=== PATIENT | female | born 1995 | race Hispanic/Latino ===

== ENCOUNTER 2019-01-09 12:32 | Emergency (ER) | payer OTHER ==
--- OUTSIDE RECORDS SUMMARY | 2019-01-09 12:34 | XMS REPORT ---
:1995 Author Organization [employer] Care Team Providers Name Role Phone Noel, Na Provider Role Unavailable Allergies No Known Allergies Problems Problem Type Condition Code Onset Dates Condition Status Assessment Primary osteoarthritis of right hip M16.11 Active Problem Paraplegia G82.20 Active Problem Anemia D64.9 Active Problem Arnold-Chiari malformation Q07.00 Active Problem Benign essential HTN I10 Active Problem Elevated blood-pressure reading R03.0 Active without diagnosis of hypertension Problem Primary insomnia F51.01 Active Problem Intractable migraine with aura G43.119 Active without status migrainosus Problem Altered bowel elimination due to K94.19 Active intestinal ostomy Problem Primary osteoarthritis of right hip M16.11 Active Problem Vitamin B12 deficiency E53.8 Active Problem Wheelchair dependent Z99.3 Active Problem Acquired scoliosis M41.9 Active Problem Tachycardia R00.0 Active Problem Frequent falls R29.6 Active Problem Mechanical complication of K94.03 Active colostomy Problem Depression with anxiety F41.8 Active Problem Colostomy status Z93.3 Active Problem Incontinence R32 Active Problem Thoracic spina bifida with Q05.1 Active hydrocephalus Problem Pressure ulcer of sacral region, L89.150 Active unstageable Problem Fecal incontinence R15.9 Active Problem Kidney and urinary tract disorders N28.9 Active Problem Hydronephrosis N13.30 Active Problem Obstructive sleep apnea G47.33 Active Medications Medication Code Code Instructions Start End Status Dosage System Date Date [facility] [id number] 2 % Transdermal June 26 2 applications Twice a day 2019 to affected area Results No Known Results Summary Purpose [facility] Submission
--- OUTSIDE RECORDS SUMMARY | 2019-01-09 12:34 | XMS REPORT ---
:1995 [facility] [address] [place] [address] Dr. Vaca [address] [place] [id number] Care Team Providers Name Role Phone Unavailable Unavailable Unavailable Problems This patient has no known problems. Allergies, Adverse Reactions, Alerts This patient has no known allergies or adverse reactions. Medications This patient has no known medications.
[2019-01-09 14:02] LABS: Absolute Lymphocytes (CBC) 0.7 K/uL (0.7-4.9); Basophils % 0.8 % (0-1.3); Hematocrit 33.1 % (36.0-45.0); Lymphocytes % 7.3 % (15.3-44.8); MPV 8.1 fL (7.6-11.3); RBC Red Blood Cell Count 4.76 M/uL (3.86-4.86)
[2019-01-09 14:16] LABS: BUN Blood Urea Nitrogen 9 mg/dL (7-18); Bicarbonate 25 mmol/L (21-32); Glucose Level 120 mg/dL (74-106); Potassium 3.8 mmol/L (3.5-5.1); Sodium Level 140 mmol/L (136-145)
--- NOTE | 2019-01-09 14:17 | RAD REPORT ---
EXAM DESCRIPTION: RAD - Tib Fib Right - 01/09/2019 1:44 pm CLINICAL HISTORY: Leg pain, soft tissue swelling COMPARISON: November 2012 FINDINGS: There is a spiral fracture involving the distal shaft of the right tibia. No significant d istraction or angulation deformity. No fibula fracture identified. Bones are osteopenic. Epiphyses and growth plates show no acute findin gs. No foreign body or other soft tissue abnormality. IMPRESSION: Distal right tibia spiral fracture without significant distraction or angulation.
--- NOTE | 2019-01-09 14:18 | RAD REPORT ---
EXAM DESCRIPTION: RAD - Chest Single View - 01/09/2019 1:44 pm CLINICAL HISTORY: Fever COMPARISON: July 2016 TECHNIQUE: AP portable chest image was obtained 1332 hours . FINDINGS: Lung volumes are low. No peripheral mass, consolidation or pulmonary edema. Thickening perry ng the right-side of the chest and medial right apex unchanged from comparison. Shunt tubing overlies the right side of the chest. Heart and vasculature are normal. No measurable pleural effusion and no pneumothorax. No acute bony abnormality seen. No acute aortic findings suspected. IMPRESSION: No acute cardiopulmonary process. No significant change from comparison.
[2019-01-09 14:20] LABS: Blood Morphology Comment NOTED (NOT SEEN); Platelet Estimate INCR; Urine White Blood Cell Casts OK
--- NOTE | 2019-01-09 15:04 | RAD REPORT ---
EXAM DESCRIPTION: US - Extremity Venous Uni Ltd - 01/09/2019 2:49 pm CLINICAL HISTORY: Right leg pain and swelling COMPARISON: None. TECHNIQUE: Real-time sonographic evaluation of the right lower extremity deep venous systems was per formed. FINDINGS: Normal compressibility, flow augmentation, phasic flow and spontaneous flow are identified in the right lower extremity common femoral, superficial femoral, popliteal and posterior tibial vei ns. No intraluminal filling defects seen. IMPRESSION: No DVT in the right lower extremity.
--- NOTE | 2019-01-09 16:32 | ER ---
Nurse's Notes [facility] Name: Myron Eddy Age: 23 yrs Sex: Female : 1995 Arrival Date: 01/09/2019 Time: 12:37 Bed 7 Private MD: Diagnosis: Displaced fracture of right tibial spine Presentation: 01/09 12:44 Presenting complaint: EMS states: Redness, warmth and swelling to R lower leg, non ph ambulatory w/ hx of spina bifida, family reports that when transferring pt to bed yesterday they felt a pop in leg and noticed redness and swelling today. Transition of care: patient was not received from another setting of care. Onset of symptoms was January 09, 2019. Risk Assessment: Do you want to hurt yourself or someone else? Patient reports no desire to harm self or others. Initial Sepsis Screen: Does the patient meet any 2 criteria? No. Patient's initial sepsis screen is negative. Does the patient have a suspected source of infection? Yes: Bone or joint infection. Care prior to arrival: None. 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 - Social history:: Smoking status: Patient/guardian denies using tobacco. - Ebola Screening: : No symptoms or risks identified at this time. Screenin:59 Abuse screen: Denies threats or abuse. Denies injuries from another. Nutritional ph screening: No deficits noted. Tuberculosis screening: No symptoms or risk factors identified. Fall Risk None identified. Assessment: 13:00 General: Appears in no apparent distress. comfortable, well groomed, Behavior is calm, ph cooperative, appropriate for age, Denies fever, chills. Pain: Denies pain. Neuro: Level of Consciousness is awake, alert, obeys commands, Oriented to person, place, time, situation. Cardiovascular: Capillary refill < 3 seconds in bilateral fingers Patient's skin is warm and dry. Pulses are palpable in right dorsalis pedis artery and left dorsalis pedis artery. Respiratory: Airway is patent Respiratory effort is even, unlabored, Respiratory pattern is regular, symmetrical, Denies shortness of breath. GI: No signs and/or symptoms were reported involving the gastrointestinal system. Derm: Skin is intact, Skin is pale, area of redness noted to emery area, also slightly swollen and warm to touch. Musculoskeletal: to bilateral lower extremities r/t hx of spina bifida. 14:03 Reassessment: Patient appears in no apparent distress at this time. Patient and/or ph family updated on plan of care and expected duration. Pain level reassessed. Patient is alert, oriented x 3, equal unlabored respirations, skin warm/dry/pink. Pt taken to US via stretcher. 15:00 Reassessment: Patient appears in no apparent distress at this time. Patient and/or ph family updated on plan of care and expected duration. Pain level reassessed. Patient is alert, oriented x 3, equal unlabored respirations, skin warm/dry/pink. 16:00 Reassessment: Patient appears in no apparent distress at this time. Patient and/or ph family updated on plan of care and expected duration. Pain level reassessed. Patient is alert, oriented x 3, equal unlabored respirations, skin warm/dry/pink. Vital Signs: 12:48 BP 145 / 106; Pulse 108; Resp 18; Temp 99.1(O); Pulse Ox 100% on R/A; Weight 44.45 kg; ph 14:00 BP 137 / 99; Pulse 101; Resp 18; Pulse Ox 100% on R/A; ph 15:30 BP 146 / 101; Pulse 98; Resp 18; Pulse Ox 99% on R/A; ph 16:30 BP 132 / 97; Pulse 92; Resp 16; Temp 98.7; Pulse Ox 100% on R/A; ph ED Course: 12:37 Patient arrived in ED. em1 12:42 Sebastian Wills PA is PHCP. jr8 12:42 Todd Gramajo MD is Attending Physician. jr8 12:44 Betsy Daniels, RN is Primary Nurse. ph 12:48 Triage completed. ph 13:19 Missed attempt(s): 22 gauge in left antecubital area. Bleeding controlled, band aid ph applied, catheter tip intact. Missed attempt(s): 22 gauge in right antecubital area. Bleeding controlled, band aid applied, catheter tip intact. 13:20 Patient has correct armband on for positive identification. Placed in gown. Bed in low ph position. Call light in reach. Side rails up X2. Pulse ox on. NIBP on. Door closed. Noise minimized. Warm blanket given. Head of bed elevated. 13:20 Arm band placed on Patient placed in an exam room. ph 13:50 XRAY Tib Fib RIGHT In Process Unspecified. EDMS 13:50 XRAY Chest (1 view) In Process Unspecified. EDMS 13:50 Accessed peripheral vein via ultrasound, utilizing dynamic ultrasound technique using ph 18G Sureflo IV catheter Clean \T\ dry. Dressing intact. Good blood return. Flushes easily. inserted by Jose Dimas RN. 14:49 US Extremity Venous Unilateral Ltd In Process Unspecified. EDMS 16:42 Trav wrap to right knee and right ankle and right leg Orthoglass splint: Posterior long jp3 leg splint applied on right leg. 17:10 No provider procedures requiring assistance completed. IV discontinued, intact, ph bleeding controlled, No redness/swelling at site. Pressure dressing applied. Administered Medications: No medications were administered Outcome: 16:31 Discharge ordered by MD. dias 17:10 Patient left the ED. ph 17:10 Discharged to home via wheelchair, with family. ph 17:10 Condition: good 17:10 Discharge instructions given to patient, family, Instructed on discharge instructions, follow up and referral plans. Demonstrated understanding of instructions, follow-up care. Signatures: Dispatcher [employer] EDMS Mark Gonsalves em1 Sebastian Wills PA PA jrBetsy Sharpe, NICOLAS RN ph Olu Poole jp3 Corrections: (The following items were deleted from the chart) 12:49 12:48 BP 145 / 46; Pulse 108bpm; Resp 18bpm; Pulse Ox 100% RA; Temp 99.1F Oral; 44.45 ph kg; ph 19:13 16:00 Reassessment: Patient appears in no apparent distress at this time. ph ph
--- NOTE | 2019-01-09 16:32 | EDPHYS ---
Physician Documentation [facility] Name: Myron Eddy Age: 23 yrs Sex: Female : 1995 Arrival Date: 01/09/2019 Time: 12:37 Bed 7 Private MD: ED Physician Todd Gramajo HPI: 01/09 13:59 This 23 yrs old Female presents to ER via EMS with complaints of Possible jr8 fracture right lower extremity. 13:59 The patient presents with swelling, erythema. The complaints affect the right emery. jr8 Context: The problem was sustained at home. Onset: The symptoms/episode began/occurred acutely, yesterday. Modifying factors: The symptoms are alleviated by nothing. the symptoms are aggravated by nothing. Associated signs and symptoms: The patient has no apparent associated signs or symptoms. Severity of symptoms: At their worst the symptoms were moderate, in the emergency department the symptoms are unchanged. It is unknown whether or not the patient has had similar symptoms in the past. The patient has not recently seen a physician. Patient disabled and paralyzed in legs. While being moved to bed mother felt pop in right lower leg. Today leg is swollen and red. EMS called at that time for further evaluation . 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 - Social history:: Smoking status: Patient/guardian denies using tobacco. - Ebola Screening: : No symptoms or risks identified at this time. ROS: 13:59 Eyes: Negative for injury, pain, redness, and discharge, ENT: Negative for injury, jr8 pain, and discharge, Neck: Negative for injury, pain, and swelling, Cardiovascular: Negative for chest pain, palpitations, and edema, Respiratory: Negative for shortness of breath, cough, wheezing, and pleuritic chest pain, Abdomen/GI: Negative for abdominal pain, nausea, vomiting, diarrhea, and constipation, Back: Negative for injury and pain, Skin: Negative for injury, rash, and discoloration, Neuro: Negative for headache, weakness, numbness, tingling, and seizure. 13:59 MS/extremity: Positive for erythema, swelling, of the right leg. Exam: 13:59 Eyes: Pupils equal round and reactive to light, extra-ocular motions intact. Lids and jr8 lashes normal. Conjunctiva and sclera are non-icteric and not injected. Cornea within normal limits. Periorbital areas with no swelling, redness, or edema. ENT: Nares patent. No nasal discharge, no septal abnormalities noted. Tympanic membranes are normal and external auditory canals are clear. Oropharynx with no redness, swelling, or masses, exudates, or evidence of obstruction, uvula midline. Mucous membranes moist. Neck: Trachea midline, no thyromegaly or masses palpated, and no cervical lymphadenopathy. Supple, full range of motion without nuchal rigidity, or vertebral point tenderness. No Meningismus. Chest/axilla: Normal chest wall appearance and motion. Nontender with no deformity. No lesions are appreciated. Cardiovascular: Regular rate and rhythm with a normal S1 and S2. No gallops, murmurs, or rubs. Normal PMI, no JVD. No pulse deficits. Respiratory: Lungs have equal breath sounds bilaterally, clear to auscultation and percussion. No rales, rhonchi or wheezes noted. No increased work of breathing, no retractions or nasal flaring. Abdomen/GI: Soft, non-tender, with normal bowel sounds. No distension or tympany. No guarding or rebound. No evidence of tenderness throughout. Back: No spinal tenderness. No costovertebral tenderness. Full range of motion. Skin: Warm, dry with normal turgor. Normal color with no rashes, no lesions, and no evidence of cellulitis. 13:59 Musculoskeletal/extremity: Extremities: grossly normal except: noted in the right leg: Patient has crepitus of distal tibia with swelling, erythema, and with warm to touch. No pulse deficit , Pulses: noted to be 2+ in the right radial artery, right dorsalis pedis artery, left radial artery and left dorsalis pedis artery, Sensation intact. 13:59 Neuro: Orientation: to person, place \T\ time. Mentation: is normal, Memory: is normal, Cranial nerves: CN I not tested, CN II- XII are normal as tested, Motor: strength is 5/5 in the right arm and left arm, Paralyzed lower extremities, seizure activity, is not displayed by the patient, Abnormal movements: there are no abnormal movements. Vital Signs: 12:48 BP 145 / 106; Pulse 108; Resp 18; Temp 99.1(O); Pulse Ox 100% on R/A; Weight 44.45 kg; ph 14:00 BP 137 / 99; Pulse 101; Resp 18; Pulse Ox 100% on R/A; ph 15:30 BP 146 / 101; Pulse 98; Resp 18; Pulse Ox 99% on R/A; ph 16:30 BP 132 / 97; Pulse 92; Resp 16; Temp 98.7; Pulse Ox 100% on R/A; ph Procedures: 16:28 Splinting: Splint applied to right leg using Orthoglass splint, applied by tech. nurse. jr8 Examined by me, post splint application: neurovascular intact, 2+ distal pulses palpable, brisk capillary refill noted, Patient tolerated well. MDM: 12:42 Patient medically screened. jr8 16:28 Data reviewed: vital signs, nurses notes, lab test result(s), radiologic studies, plain jr8 films, and as a result, I will discharge patient. Data interpreted: Pulse oximetry: on room air is 100 %. Interpretation: normal. Counseling: I had a detailed discussion with the patient and/or guardian regarding: the historical points, exam findings, and any diagnostic results supporting the discharge/admit diagnosis, lab results, radiology results, the need for outpatient follow up, a orthopedic surgeon, to return to the emergency department if symptoms worsen or persist or if there are any questions or concerns that arise at home. 01/09 12:43 Order name: CBC with Diff; Complete Time: 14:49 8 01/09 12:43 Order name: Basic Metabolic Panel; Complete Time: 14:49 8 01/09 12:43 Order name: Blood Culture Adult (2) [facility] 01/09 12:43 Order name: Procalcitonin; Complete Time: 15:06 8 01/09 12:43 Order name: Lactate; Complete Time: 14:49 8 01/09 12:43 Order name: IV; Complete Time: 13:59 jr8 01/09 12:43 Order name: XRAY Tib Fib RIGHT; Complete Time: 14:49 jr8 01/09 12:43 Order name: Straight Cath - Urine; Complete Time: 17:08 jr8 01/09 12:43 Order name: Urine Dipstick-Ancillary (obtain specimen); Complete Time: 17:08 jr8 01/09 12:43 Order name: XRAY Chest (1 view); Complete Time: 14:49 jr8 01/09 13:54 Order name: US Extremity Venous Unilateral Ltd; Complete Time: 15:07 jr8 01/09 14:22 Order name: CBC Smear Scan; Complete Time: 14:49 EDCA 01/09 15:08 Order name: Splint - Posterior Leg; Complete Time: 16:43 jr8 Administered Medications: No medications were administered Disposition: 17:23 Co-signature as Attending Physician, Todd Gramajo MD. rn Disposition: 01/09/19 16:31 Discharged to Home. Impression: Displaced fracture of right tibial spine. - Condition is Stable. - Discharge Instructions: Tibial Fracture, Adult. - Medication Reconciliation Form, Thank You Letter, Antibiotic Education, Prescription Opioid Use form. - Follow up: Private Physician; When: 2 - 3 days; Reason: Recheck today's complaints, Continuance of care, Re-evaluation by your physician. - Problem is new. - Symptoms have improved. Signatures: Dispatcher [employer] EDTodd Chauhan MD MD rn Roszak, Josh, PA PA jr8 Betsy Daniels RN RN ph Corrections: (The following items were deleted from the chart) 17:10 16:31 01/09/2019 16:31 Discharged to Home. Impression: Displaced fracture of right ph tibial spine. Condition is Stable. Forms are Medication Reconciliation Form, Thank You Letter, Antibiotic Education, Prescription Opioid Use. Follow up: Private Physician; When: 2 - 3 days; Reason: Recheck today's complaints, Continuance of care, Re-evaluation by your physician. Problem is new. Symptoms have improved. jr8
[2019-01-09 17:26] VITALS: BP 145/106; TEMP 99.1; O2SAT 100
== END 2019-01-09 17:10 | disposition home or self-care (01) ==
LOC: ER 12:32
PROC: 2W3QX1Z Immobilization of Right Lower Leg using Splint (ICD-10-PCS; principal; 2019-01-09)
DX: S82.111A Displaced fracture of right tibial spine, initial encounter for closed fracture (principal); X58.XXXA Exposure to other specified factors, initial encounter; Y93.89 Activity, other specified; Y92.9 Unspecified place or not applicable; Z88.3 Allergy status to other anti-infective agents; Z91.040 Latex allergy status
CPT/HCPCS: 36415; 71045; 80048; 83605; 84145; 85025; 87040; 93971; 99284

== ENCOUNTER 2024-06-19 10:30 | Emergency (ER) | payer MEDICAID, OTHER ==
--- OUTSIDE RECORDS SUMMARY | 2024-06-19 10:48 | XMS REPORT | Continuity of Care Document ---
Author Name Unknown Address [address] [facility] [address] [place] [address] [facility] Address [address] [facility] [address] [place] [address] Care Team Providers Care Compliance Program Manager Name Role Phone Lexi Borrero MD Primary Care Physician + [phone] Waleska Martinez Attending Clinician Unavailable JULITO CARR Attending Clinician Unavailable LEXI BORRERO Attending Clinician UnavailLEXI Zuleta Attending Clinician UnavailKHADIJAH Desouza Attending Clinician Unavailable Lexi Borrero MD Attending Clinician [phone] Khadijah Mendenhall DO Attending Clinician [phone], [facility] Attending Clinician Unavailable Doctor Unassigned, [place] Attending Clinician U DELGADO Light Attending Clinician Unavailable DELGADO VELASQUEZ Attending Clinician Unavailable Delgado Velasquez MD Attending Clinician LISA JULIAN Attending Clinician Unavailable LISA JULIAN Attending Clinician Unavailable Lisa Julian MD Attending Clinician [phone] Gorge Aviles MD Attending Clinician [phone] Bruno AMAYA, Julito Attending Clinician [phone] NATALY BENTON Attending Clinician Unavailab NATALY Whitaker Attending Clinician Unavailab farzana Benton DNA SEQUENCING ASSOCIATE, Nataly Attending Clinician [phone] Mis Hale Attending Clinician Unav Gorge Duncan MD Attending Clinician [phone] Bruno AMAYA, Julito Attending Clinician [phone] GORGE AVILES Attending Clinician Unavail able GORGE AVILES Attending Clinician Unavail able Doctor Unassigned, [place] Attending Clinician U ZEESHAN Lane Attending Clinician UnavailMIS Carballo Attending Clinician Unavaila RIGO Gamez Attending Clinician Unavailab farzana Nurse, [facility] Surgery Gu Attending Clinician Rigo Blankenship MD Attending Clinician [phone] Melvin Yu MD Attending Clinician [phone] Naeem Maurice MD Attending Clinician [phone] Chavo Manning Attending Clinician [phone] [facility] Attending Clinician Unavailab Monica Jung MA Attending Clinician UnavailKAIT Gonzales Attending Clinician Unavailable Angel Langford Attending Clinician [phone] ADAM MULLER Attending Clinician ANGEL Diallo Attending Clinician Unavailable Virginia Hercules OT Attending Clinician Un available Ashia Elizalde MD Attending Clinician [phone] ASHIA ELIZALDE Attending Clinician UnavailJUAN RAMON Hinson Attending Clinician UnavailTIGRE Reyes Attending Clinician Unavailable [facility] Attending Clinician Unavailable Juan Ramon Cam MD Attending Clinician [phone] Therapist, [employer] Attending Clinician Unavail able DELGADO VELASQUEZ Admitting Clinician Unavailable Delgado Velasquez MD Admitting Clinician [phone] LISA JULIAN Admitting Clinician Unavailable GORGE AVILES Admitting Clinician Unavail able RIGO RODRIGUEZ Admitting Clinician Unavailab Rigo Helms MD Admitting Clinician [phone] MELVIN YU Admitting Clinician Unavailable Payers Payer Name Policy Type Policy Number Effective Date Expirati on Date Source [facility] [id number] 2022 00:00:00 [facility] [id number] 2019 00:00:00 [facility] [place] [id number] 2019 00:00:[address] [facility] (Medicaid) [id number] 2019 00:00:00 [facility] [id number] 2019 [facility] [id number] 2019 00:00:00 [facility] Problems Condition Name Condition Details Condition Category Status Onset Date Resolution Date Last Treatment Date Treating Clinician Comments Source Chronic deep vein thrombosis (DVT) of other vein of lower extremity, unspecifie d laterality Chronic deep vein thrombosis (DVT) of other vein of lower extremity, unspecifie d laterality Disease Active 05-21 00:00: 00 [facility] Vertigo Vertigo Disease Active 05-21 00:00: 00 [facility] Chronic pain of both hips Chronic pain of both hips Disease Active 05-21 00:00: 00 [facility] Chronic left shoulder pain Chronic left shoulder pain Disease Active 05-21 00:00: 00 [facility] Congenital single kidney Congenital single kidney Disease Active 05-21 00:00: 00 [facility] Colostomy present Colostomy present Disease Active 05-21 00:00: 00 [facility] Insomnia Active 2024-1 1-26 00:00: 00 [facility] Other problems related to medical facilities and other health care Active 0 9-20 00:00: 00 [facility] Acute cough Active 8-17 00:00: 00 [facility] Overweight (BMI 25.0-29.9) + BMI 26.0-26.9, adult Active 4-26 00:00: 00 [facility] 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 Disease Active 4-17 00:00: 00 [facility] Lethargy Active 2-14 00:00: 00 [facility] H/O right nephrectom y and neurogenic bladder Active 2-12 00:00: 00 [facility] Colostomy status Active 2-12 00:00: 00 [facility] Bladder incontinen ce Active 2-12 00:00: 00 [facility] Major depressive disorder, recurrent, mild; Anxiety Active 2-12 00:00: 00 [facility] H/O right nephrectom y Active 0 2-12 00:00: 00 [facility] Hypertensi on Active 2-08 00:00: 00 [facility] Health counseling Active 2-08 00:00: 00 [facility] Migraine Active 2-08 00:00: 00 [facility] Muscle spasm Active 2-08 00:00: 00 [facility] ANSHUL (iron deficiency anemia) Active 0 2-08 00:00: 00 [facility] Paraplegia , unspecifie d Active 0 2-08 00:00: 00 [facility] Keloid scar Keloid scar Disease Active 9-25 00:00: 00 [facility] H/O right nephrectom y H/O right nephrectom y Disease Active 0 5-24 00:00: 00 [facility] Urinary incontinen ce, unspecifie d type Urinary incontinen ce, unspecifie d type Disease Active 06-28 00:00: 00 [facility] Pain in joint, multiple sites Pain in joint, multiple sites Disease Active 06-28 00:00: 00 [facility] Muscle spasm Muscle spasm Disease Active 06-28 00:00: 00 [facility] Depression , unspecifie d depression type Depression , unspecifie d depression type Disease Active 06-28 00:00: 00 [facility] Other insomnia Other insomnia Disease Active 06-28 00:00: 00 [facility] Nasal congestion Nasal congestion Disease Active 05-25 00:00: 00 [facility] Encounter to establish care Encounter to establish care Disease Active 05-25 00:00: 00 [facility] Dependence on wheelchair Dependence on wheelchair Disease Active 05-25 00:00: 00 [facility] Encounter to establish care Encounter to establish care Disease Active 05-25 00:00: 00 [facility] Other and unspecifie d diseases of upper respirator y tract Other and unspecifie d diseases of upper respirator y tract Disease Active 05-02 00:00: 00 [facility] Fever and other physiologi c disturbanc es of temperatur e regulation Fever and other physiologi c disturbanc es of temperatur e regulation Disease Active 05-02 00:00: 00 Overview: Formattin g of this note might be different from the original. 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 [facility] Scoliosis Scoliosis Disease Active [facility] [id number] Full incontinen ce of feces Problem Common [facility] Spina bifida without hydrocepha ly [facility] new malformati on Problem [facility] [id number] Spina bifida of thoracolum bar region with hydrocepha ly Problem Common [facility] Acquired scoliosis Acquired scoliosis Problem Common [facility] [id number] Frequent falls Problem Common [facility] Pressure ulcer of sacral region Pressure ulcer of sacral region, unstageabl e Problem Common [facility] Vitamin B12 deficiency Vitamin B12 deficiency Problem Common [facility] Disorder of kidney and/or ureter Kidney and urinary tract disorders Problem Common [facility] Obstructiv e sleep apnea Obstructiv e sleep apnea Problem Common [facility] Anemia Anemia Problem Common [facility] [id number] Primary insomnia Problem Common [facility] Essential hypertensi on Benign essential HTN Problem Common [facility] [id number] Mechanical complicati on of colostomy Problem Common [facility] [id number] Altered bowel eliminatio n due to intestinal ostomy Problem Common [facility] [id number] Rash and nonspecifi c skin eruption Problem Common [facility] Hydronephr osis Hydronephr osis Problem Common [facility] [id number] Decubitus ulcer, ankle, left, unstageabl e Problem Common [facility] Incontinen ce Incontinen ce Problem Common [facility] Localized, primary 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 Problem Common [facility] Refractory migraine with aura Intractabl e migraine with aura without status migrainosu s Problem Common [facility] [id number] Wheelchair dependent Problem Common [facility] [id number] Osteopenia of right lower leg Problem Common [facility] [id number] Other chronic pain Problem Common [facility] [id number] [facility] new malformati on, type II Problem Common [facility] [id number] Spina bifida, unspecifie d hydrocepha ly presence, unspecifie d spinal region Problem Common [facility] Sneezing Sneezing Disease Resolve d 2025-0 4-16 00:00: 00 2024-05-30 00:00:00 2024-05-30 17:07:42 [facility] Post-nasal drip Post-nasal drip Disease Resolve d 4-16 00:00: 00 2024-05-30 00:00:00 2024-05-30 17:07:40 [facility] Sinus tachycardi a Sinus tachycardi a Disease Resolve d 4-12 00:00: 00 2024-05-30 00:00:00 2024-05-30 17:07:30 [facility] Tachycardi a Tachycardi a Disease Resolve d 4-20 00:00: 00 2024-05-30 00:00:00 2024-05-30 17:07:25 [facility] Cough Cough Disease Resolve d 3- 00:00: 00 2024-05-30 00:00:00 2024-05-30 17:07:08 [facility] Unspecifie d viral infection, in conditions classified elsewhere and of unspecifie d site Unspecifie d viral infection, in conditions classified elsewhere and of unspecifie d site Disease Resolve d 3- 00:00: 00 2024-05-30 00:00:00 2024-05-30 17:07:14 [facility] Allergies, Adverse Reactions, Alerts Allergy Name Allergy Type Status Severity Reaction(s) Onset Date Inactive Date Treating Clinician Comments Source BENZONAT ATE DRUG INGREDI Active High Diarrhea 2022-02 0-12 00:00: 00 [facility] BROMPHEN IRAMINE DRUG INGREDI Active High Diarrhea 2022-02 0-12 00:00: 00 [facility] Benzonat ate Drug Allergy Active Itching 2022-02 0-12 00:00: 00 [facility] Bromphen iramine Drug Allergy Active Itching 2022-02 0-12 00:00: 00 [facility] VANCOMYC IN DRUG INGREDI Active Unknown-Cmnt 3-27 00:00: 00 [facility] Vancomyc in Propensi ty to adverse reaction s Active Unknown - See comments 05-01 00:00: 00 [facility] MORPHINE DRUG INGREDI Active Rash 09-01 00:00: 00 [facility] Morphine Propensi ty to adverse reaction s Active Rash 09-01 00:00: 00 Redness noted at injection site and vein per moms report. Has received since. [facility] LATEX DRUG INGREDI Active 05-02 00:00: 00 [facility] Vancomyc in Allergy to substanc e (disorde r) Active [facility] Latex Allergy to substanc e (disorde r) Active [facility] Vancomyc in Allergy to substanc e (disorde r) Active [facility] Latex Allergy to substanc e (disorde r) Active [facility] Vancomyc in Allergy to substanc e (disorde r) Active [facility] Latex Allergy to substanc e (disorde r) Active [facility] Vancomyc in Allergy to substanc e (disorde r) Active [facility] Latex Allergy to substanc e (disorde r) Active [facility] Vancomyc in Allergy to substanc e (disorde r) Active [facility] Latex Allergy to substanc e (disorde r) Active [facility] BuPROPio n HCl Allergy to substanc e (disorde r) Active Unknown [facility] Latex Latex Active Unknown [facility] vancomyc in vancomyc in Active Unknown [facility] Social History Social Habit Start Date Stop Date Quantity Comments Source Gender identity [facility] Sexual orientation U [facility] ASSERTION Not [facility] History of Tobacco Use [facility] Sex Assigned At [facility] History of Social function 2024-05-30 00:00:00 2024-05-30 00:00:00 [facility] Alcoholic beverage intake 2024-05-30 00:00:00 2024-05-30 00:00:00 Current non-drinker of alcohol (finding) [facility] Alcohol intake 2023-04-13 00:00:00 2023-04-13 00:00:00 Current non-drinker of alcohol (finding) [facility] Exposure to SARS-CoV-2 (event) 2022-05-07 00:00:00 2022-05-17 10:16:00 Not sure [facility] Tobacco use and exposure 2021-09-05 00:00:00 2021-09-05 00:00:00 Smokeless tobacco non-user [facility] Smoking Status Start Date Stop Date Source Never smoked tobacco [facility] Medications Ordered Medication Name Filled Medication Name Start Date Stop Date Current Medication? Ordering Clinician Indication Dosage Frequency Signature (SIG) Comments Components Source losartan 25 mg tablet 05-21 00:00: 00 Yes [id number] 25mg Take 1 tablet by mouth in the morning. [facility] Miscellaneo us Medical Supply Kit 05-21 00:00: 00 Yes [id number] Hospital Bed [facility] hydrOXYzine 10 mg/5 mL solution 05-13 00:00: 00 Yes [id number] 10mg Take 5 mL by mouth at bedtime as needed for Itching or Anxiety. [facility] albuterol (VENTOLIN) inhaler 2 Puff 05-01 23:19: 00 05-02 01:31 :00 No 2{puff} 2 Puff, Inhalation , ONCE, 1 dose, On Nora 05/01/24 at 1830, Routine [facility] acetaminoph en (TYLENOL) tablet 1,000 mg 05-01 23:19: 05-02 00:02 :00 No 1000mg 1,000 mg, Oral, ONCE, 1 dose, On Nora 05/01/24 at 1830, SHAY [facility] doxycycline hyclate (Vibramycin ) capsule 100 mg 05-01 23:19: 00 05-02 00:02 :00 No 100mg 100 mg, Oral, ONCE, 1 dose, On Nora 05/01/24 at 1830, SHAY, Reason for Anti-Infec tive: Documented Infection, Documented Infection Site: Respirator y, Duration of Therapy: 7 days [facility] amoxicillin -pot clavulanate 600-42.9 mg/5 mL suspension 05-01 00:00: 00 05-12 04:59 :00 Yes [id number] 870mg Take 7.25 mL by mouth in the morning and 7.25 mL in the evening. Do all this for 10 days. [facility] albuterol sulfate HFA 90 mcg/actuati on aerosol inhaler 04-30 00:00: 00 Yes [id number] 2{puff} Inhale 2 Puffs every 6 (six) hours as needed for Wheezing or Shortness of Breath. [facility] fluticasone propionate 50 mcg/actuati on nasal spray 04-30 00:00: 00 Yes [id number] 1{spray } Use 1 [place] in each nostril in the morning. [facility] doxycycline hyclate 100 mg tablet 04-30 00:00: 00 05-08 04:59 :00 Yes [id number] 100mg Take 1 tablet by mouth in the morning and 1 tablet in the evening. Do all this for 7 days. [facility] loratadine 5 mg/5 mL solution 04-21 00:00: 00 Yes [id number] 10mg Take 10 mL by mouth in the morning. [facility] Venlafaxine 37.5 mg TR24 04-08 00:00: 00 Yes [id number] 1{tbl} Take 1 tablet by mouth in the morning. [facility] dimenhyDRIN ATE (DRAMAMINE) 25 mg Chew 04-08 00:00: 00 Yes [id number] 1{dose} Take 1 Dose by mouth as needed (vertigo). [facility] losartan 25 mg tablet 04-08 00:00: 00 05-21 00:00 :00 No [id number] 25mg Take 1 tablet by mouth in the morning. [facility] metoprolol 10 mg/mL 04-08 00:00: 00 04-08 00:00 :00 Yes [id number] 100mg Take 10 mL by mouth in the morning and 10 mL in the evening. [facility] apixaban (ELIQUIS) 2.5 mg tablet 02-17 00:00: 00 Yes [id number] 2.5mg Take 1 tablet by mouth in the morning and 1 tablet in the evening. Indication s: history of deep vein thrombosis [facility] losartan 25 mg tablet 02-17 00:00: 00 04-08 00:00 :00 No [id number] 12.5mg Take 0.5 tablets by mouth in the morning. Liquid form [facility] methocarbam ol 50 mg/mL oral suspension 2023-02 00:00: 00 Yes [id number] 500mg Take 10 mL by mouth 4 (four) times daily. [facility] ramelteon 8 mg tablet 2023-02 00:00: 00 04-08 00:00 :00 No [id number] 8mg Take 1 tablet by mouth at bedtime. [facility] apixaban (ELIQUIS) 2.5 mg tablet 2023-02 00:00: 00 02-17 00:00 :00 No [id number] 2.5mg Take 1 tablet by mouth in the morning and 1 tablet in the evening. Indication s: history of deep vein thrombosis [facility] metoprolol 10 mg/mL 2023-02 0- 00:00: 00 04-08 00:00 :00 No [id number] 10mg Take 1 mL by mouth in the morning and 1 mL in the evening. [facility] losartan 25 mg tablet 2023-02 0- 00:00: 00 02-17 00:00 :00 No [id number] 12.5mg Take 0.5 tablets by mouth in the morning. Liquid form [facility] Ostomy Supplies Misc 2023-02 0-17 00:00: 00 Yes [id number] Use as directed,C onva Shawanda - Straight Tail Closure - [id number], Skin Barrier Paste - Safe n Simple - [id number] Skin Barrier Film Safe n Simple - Lot - [id number], Brava - Elastic Barrier Strips - Ref - [id number], ActiveLife One-Piece System ColostomyP ouch, Drainable, Trim To Fit - Reference number - [id number] [facility] promethazin e-dextromet horphan 6.25-15 mg/5 mL syrup 2023-02 0-15 00:00: 00 01-07 00:00 :00 No [id number] 5mL Take 5 mL by mouth as needed for Cough or Cold symptoms. [facility] DeionerMagali f, Adult,Dispo ari [facility] 0 10-30 00:00: 00 Yes [id number] Use as directed [facility] Ostomy Supplies [facility] 10-29 00:00: 00 11-21 00:00 :00 No [id number] Use as directed [facility] DiaperMagali f, Adult,Taylor chapman [facility] 10-17 00:00: 00 10-30 00:00 :00 No [id number] Use as directed [facility] Ostomy Supplies [facility] 0 10-17 00:00: 00 10-29 00:00 :00 No [id number] Use as directed [facility] loratadine 5 mg/5 mL solution 10-14 00:00: 00 04-21 00:00 :00 No [id number] 10mg Take 10 mL by mouth in the morning. [facility] oxybutynin 10 mg 24 hr tablet 10-14 00:00: 00 04-08 00:00 :00 No [id number] 10mg Take 1 tablet by mouth in the morning. [facility] losartan 25 mg tablet 10-14 00:00: 00 12-03 00:00 :00 No [id number] 12.5mg Take 0.5 tablets by mouth in the morning. Liquid form [facility] DiaperMagali f, Adult,Dispo ari [facility] 10-14 00:00: 00 10-17 00:00 :00 No [id number] Use as directed [facility] Ostomy Supplies [facility] 10-14 00:00: 00 10-17 00:00 :00 No [id number] Use as directed [facility] Blood-Gluco se Meter (ONETOUCH VERIO FLEX METER) [facility] 10-09 00:00: 00 Yes Check sugars 3 times a day. Use as directed [facility] blood sugar diagnostic (ONETOUCH VERIO TEST STRIPS) strip 10-09 00:00: 00 Yes Check sugars 3 times a day. Use as directed [facility] lancets (ONETOUCH DELICA PLUS LANCET) 33 gauge [facility] 10-09 00:00: 00 Yes [id number] Use as directed [facility] Blood-Gluco se Meter (ONETOUCH ULTRA2 METER) Kit 10-09 00:00: 00 Yes [id number] Use as directed [facility] blood sugar diagnostic (ONETOUCH ULTRA TEST) strip 10-09 00:00: 00 Yes [id number] Use as directed [facility] lancets (ONETOUCH DELICA PLUS LANCET) 33 gauge [facility] 10-09 00:00: 00 Yes [id number] Use as directed [facility] Blood-Gluco se Meter Kit 10-08 00:00: 00 Yes [id number] Check sugars 3 times a day. Dx Code E11.9. Brand per insurance. [facility] venlafaxine XR 37.5 mg 24 hr capsule 10-08 00:00: 00 04-08 00:00 :00 No [id number] 37.5mg Take 1 capsule by mouth in the morning. [facility] Ventolin HFA 108 (90 Base) MCG/ACT Aerosol Solution Inhalation Ventolin HFA 108 (90 Base) MCG/ACT Aerosol Solution Inhalation 09-21 00:00: 00 Yes [facility] buPROPion ER (SR) 150 mg Tab ER 12hr buPROPion ER (SR) 150 mg Tab ER 12hr 06-05 00:00: 00 Yes [facility] FeroSul 325 (65 Fe) MG Tab FeroSul 325 (65 Fe) MG Tab 0 5-01 00:00: 00 Yes [facility] Promethazin e-DM 6.25/15 mg/5ML Syrup Promethazin e-DM 6.25/15 mg/5ML Syrup 2023-0 4-24 00:00: 00 Yes [facility] hydrOXYzine 50 mg Tab hydrOXYzine 50 mg Tab 0 4-15 00:00: 00 Yes [facility] sertraline 20 mg/mL concentrate d solution 3-08 13:28: 35 - 00:00 :00 No 24mg Take 1.2 mL by mouth as needed. [facility] Losartan Potassium 25 mg Tab Losartan Potassium 25 mg Tab 0 2-08 00:00: 00 Yes [facility] Belsomra 10 mg Tab Belsomra 10 mg Tab 0 2-08 00:00: 00 Yes [facility] SUMAtriptan Succinate 50 mg Tab SUMAtriptan Succinate 50 mg Tab 0 2-08 00:00: 00 Yes [facility] Loratadine 10 mg Tab Loratadine 10 mg Tab 0 2-08 00:00: 00 Yes [facility] Sertraline 50 mg Tab Sertraline 50 mg Tab 0 2-08 00:00: 00 - 00:00 :00 No [facility] Vitamin D (Ergocalcif bernice) 81320 UNIT Cap Vitamin D (Ergocalcif bernice) 19220 UNIT Cap 2023-0 1-15 00:00: 00 Yes [facility] Losartan Potassium 50 mg Tab Losartan Potassium 50 mg Tab 0 1-11 00:00: 00 - 00:00 :00 No [facility] Sulfamethox azole-Trime thoprim 200/40 mg/5ML Suspension Sulfamethox azole-Trime thoprim 200/40 mg/5ML Suspension 2023-0 1-08 00:00: 00 Yes [facility] sertraline 20 mg/mL concentrate d solution 2022-02 1- 15:30: 42 Yes 24mg Take 1.2 mL by mouth [facility] dimenhyDRIN ATE (DRAMAMINE) 25 mg Chew 2022-02 15:30: 42 04-08 00:00 :00 No 1{dose} Take 1 Dose by mouth as needed. [facility] sulfamethox azole-trime thoprim 800-160 mg per tablet 2022-02 15:30: 42 10-08 00:00 :00 No 1{tbl} Take 1 tablet by mouth in the morning. [facility] triamcin[facility] acetonide (KENALOG) injection 2022-02 18:44: 00 11-27 19:36 :17 No PRN, Starting on Sun11/27/22 at 1344, Until Sun11/27/22 at 1436, Routine, Intra-op [facility] sodium chloride 0.9 % irrigation solution 2022-02 18:37: 00 11-27 19:36 :17 No PRN, Starting on Sun11/27/22 at 1337, Until Sun11/27/22 at 1436, Intra-op [facility] bacitracin- polymyxin B oph (POLYSPORIN ) 500-10,000 unit/gram ophthalmic ointment 2022-02 18:36: 00 11-27 19:36 :17 No PRN, Starting on Sun11/27/22 at 1336, Until Sun11/27/22 at 1436, Routine, Intra-op Univers y [facility] bupivacaine (preserv free) 0.5% (SENSORCAIN E MPF) injection 2022-02 15:32: 00 11-27 19:36 :17 No PRN, Starting on Sun11/27/22 at 1032, Until Sun11/27/22 at 1436, Routine, Intra-op [facility] lidocaine-e pinephrine (XYLOCAINE WITH EPINEPHRINE ) 0.5 %-1:200,000 injection 2022-02 15:32: 00 11-27 19:36 :17 No PRN, Starting on Sun11/27/22 at 1032, Until Sun11/27/22 at 1436, Routine, Intra-op [facility] sulfamethox azole-trime thoprim 800-160 mg per tablet 2022-02 12:36: 17 Yes 1{tbl} Take 1 tablet by mouth in the morning. Liquid form [facility] sertraline 20 mg/mL concentrate d solution 2022-02 12:36: 17 Yes 24mg Take 1.2 mL by mouth as needed. [facility] dimenhyDRIN ATE (DRAMAMINE) 25 mg Chew 2022-02 12:36: 17 Yes 1{dose} Take 1 Dose by mouth as needed. [facility] metoprolol tartrate 100 mg tablet 2022-02 00:00: 00 12-28 05:59 :00 No [id number] 100mg Take 1 tablet by mouth in the morning and 1 tablet in the evening. Do all this for 30 days. Liquid form [facility] amoxicillin -pot clavulanate 500 mg (AUGMENTIN) 500-125 mg tablet 2022-02 00:00: 00 12-05 04:59 :00 No [id number] 500mg Take 1 tablet by mouth in the morning and 1 tablet at noon and 1 tablet in the evening. Do all this for 7 days. [facility] sertraline 20 mg/mL concentrate d solution 2022-02 15:06: 03 Yes 24mg Take 1.2 mL by mouth as needed. [facility] dimenhyDRIN ATE (DRAMAMINE) 25 mg Chew 2022-02 15:06: 03 Yes 1{dose} Take 1 Dose by mouth as needed. [facility] sulfamethox azole-trime thoprim 800-160 mg per tablet 2022-02 14:48: 28 Yes 1{tbl} Take 1 tablet by mouth in the morning. Liquid form [facility] oxyBUTYnin Chloride ER 10 mg Tab ER 24hr oxyBUTYnin Chloride ER 10 mg Tab ER 24hr 2022-02 00:00: 00 Yes [facility] oxybutynin 10 mg 24 hr tablet 2022-02 0 00:00: 00 10-11 00:00 :00 No 10mg Take 1 tablet by mouth in the morning. [facility] venlafaxine XR 37.5 mg 24 hr capsule 2022-02 011 00:00: 00 10-08 00:00 :00 No 37.5mg Take 1 capsule by mouth in the morning. [facility] triamcinolo ne acetonide (KENALOG) injection 40 mg 10-30 23:45: 00 10-30 22:45 :00 No [id number] 40mg [facility] MELATONIN ORAL 10-30 13:12: 51 10-30 00:00 :00 No Take by mouth. [facility] NaCl 0.9% (NS) SolP 500 mL with iron dextran 50 mg/mL Soln 1,000 mg 10-30 13:12: 45 10-30 00:00 :00 No 1000mg 1,000 mg by IV Infusion route weekly. [facility] Cholecalcif bernice, Vitamin D3, 1,250 mcg (50,000 unit) capsule 10-30 13:12: 26 10-30 00:00 :00 No [id number] Take 1 capsule by mouth weekly. [facility] levothyroxi ne sodium (LEVOTHYROX INE ORAL) 10-30 13:12: 01 10-30 00:00 :00 No .05ug Take 0.05 mcg by mouth. [facility] aspirin 81 mg EC tablet 10-30 13:11: 49 10-30 00:00 :00 No 81mg Take 1 tablet by mouth in the morning. [facility] ascorbic acid (VITAMIN C ORAL) 10-30 13:11: 40 10-30 00:00 :00 No Take by mouth. [facility] loratadine 5 mg/5 mL solution 10-25 00:00: 00 10-11 00:00 :00 No 10mg Take 10 mL by mouth in the morning. [facility] diazePAM 5 mg/5ML Solution diazePAM 5 mg/5ML Solution 10-20 00:00: 00 12-31 00:00 :00 No [facility] Loratadine 5 mg/5ML Solution [facility] Loratadine 5 mg/5ML Solution 10-12 00:00: 00 Yes [facility] Mupirocin 2 % Oint Mupirocin 2 % Oint 18 00:00: 00 Yes [facility] triamcinolo ne acetonide (KENALOG) injection 40 mg 09-19 01:45: 00 09-19 00:32 :00 No [id number] 40mg [facility] lidocaine 4% (L-M-X 4) 4 % cream 09-18 21:45: 00 09-18 21:14 :00 No [id number] [facility] promethazin e-dextromet horphan 6.25-15 mg/5 mL syrup 09-08 00:00: 00 10-08 00:00 :00 No 5mL Take 5 mL by mouth as needed. [facility] lidocaine 4% (L-M-X 4) 4 % cream 08-21 21:30: 00 08-21 21:20 :00 No [id number] [facility] fluorouraci L (5-FU) injection 50 mg 08-21 20:00: 00 08-29 11:56 :00 No [id number] 50mg [facility] NaCl 0.9% (NS) SolP 500 mL with iron dextran 50 mg/mL Soln 1,000 mg 08-21 14:24: 07 Yes 1000mg 1,000 mg by IV Infusion route weekly. [facility] Cholecalcif bernice, Vitamin D3, 1,250 mcg (50,000 unit) capsule 08-21 14:23: 18 Yes [id number] Take 1 capsule by mouth weekly. [facility] losartan 25 mg tablet 08-02 00:00: 00 10-11 00:00 :00 No 12.5mg Take 0.5 tablets by mouth in the morning. Liquid form [facility] levothyroxi ne sodium (LEVOTHYROX INE ORAL) 07-10 14:08: 25 Yes .05ug Take 0.05 mcg by mouth. [facility] aspirin 81 mg EC tablet 07-10 14:08: 25 Yes 81mg Take 1 tablet by mouth in the morning. [facility] amLODIPine 5 mg tablet 05-17 10:49: 40 05-17 00:00 :00 No 5mg Take 1 tablet by mouth in the morning. [facility] amiodarone 200 mg tablet 05-17 10:47: 33 05-17 00:00 :00 No 200mg Take 1 tablet by mouth in the morning. [facility] metoprolol tartrate 100 mg tablet 05-17 00:00: 00 11-27 00:00 :00 No [id number] 100mg Take 1 tablet by mouth in the morning and 1 tablet in the evening. [facility] triamcinolo ne acetonide (KENALOG) injection 40 mg 05-01 19:00: 00 05-01 19:30 :00 No [id number] 40mg [facility] lidocaine 4% (L-M-X 4) 4 % cream 05-01 19:00: 00 05-01 19:30 :00 No [id number] [facility] sulfamethox azole-trime thoprim 800-160 mg per tablet 05-01 13:26: 49 Yes 1{tbl} Take 1 tablet by mouth in the morning. [facility] amiodarone 200 mg tablet 05-01 13:26: 49 Yes 200mg Take 1 tablet by mouth in the morning. [facility] levothyroxi ne sodium (LEVOTHYROX INE ORAL) 05-01 13:26: 49 Yes .05ug Take 0.05 mcg by mouth. [facility] amLODIPine 5 mg tablet 05-01 13:26: 49 Yes 5mg Take 1 tablet by mouth in the morning. [facility] lisinopriL 2.5 mg tablet 05-01 13:26: 49 05-01 00:00 :00 No 2.5mg Take 1 tablet by mouth in the morning. [facility] sumatriptan 100 mg tablet 05-01 13:26: 17 05-01 00:00 :00 No 100mg Take 100 mg by mouth as needed for Migraine. [facility] gabapentin 100 mg capsule 05-01 13:25: 07 05-01 00:00 :00 No 100mg Take 100 mg by mouth in the morning and 100 mg at noon and 100 mg in the evening. [facility] furosemide (LASIX) 40 mg tablet 05-01 13:24: 55 05-01 00:00 :00 No 40mg Take 40 mg by mouth in the morning. [facility] ferrous sulfate 325 mg (65 mg iron) tablet 05-01 13:24: 42 05-01 00:00 :00 No 325mg Take 325 mg by mouth every other day. [facility] cyanocobala min, vitamin B-12, (VITAMIN B-12 SL) 05-01 13:24: 27 05-01 00:00 :[address] under the tongue daily. [facility] lisinopriL 2.5 mg tablet 09-05 11:29: 11 Yes 2.5mg Take 2.5 mg by mouth in the morning. [facility] furosemide (LASIX) 40 mg tablet 09-05 11:29: 11 Yes 40mg Take 40 mg by mouth in the morning. [facility] amLODIPine 5 mg tablet 09-05 11:29: 11 Yes 5mg Take 5 mg by mouth in the morning. [facility] ascorbic acid (VITAMIN C ORAL) 09-05 11:29: 11 Yes Take by mouth. [facility] aspirin (ASPIRIN LOW DOSE) 81 mg EC tablet 09-05 11:29: 11 Yes 81mg Take 81 mg by mouth in the morning. [facility] gabapentin 100 mg capsule 09-05 11:29: 11 Yes 100mg Take 100 mg by mouth in the morning and 100 mg at noon and 100 mg in the evening. [facility] fenofibrate (TRICOR) 145 mg tablet 09-05 11:29: 09-05 00:00 :00 No 145mg Take 145 mg by mouth in the morning. [facility] sulfamethox azole-trime thoprim 800-160 mg per tablet 09-05 11:23: 51 Yes 1{tbl} Take 1 tablet by mouth in the morning. Liquid form [facility] sumatriptan 100 mg tablet 09-05 11:23: 51 Yes 100mg Take 100 mg by mouth as needed for Migraine. [facility] ferrous sulfate 325 mg (65 mg iron) tablet 09-05 11:23: 51 Yes 325mg Take 325 mg by mouth every other day. [facility] amiodarone 200 mg tablet 09-05 11:23: 51 Yes 200mg Take 200 mg by mouth in the morning. [facility] levothyroxi ne sodium (LEVOTHYROX INE ORAL) 09-05 11:23: 51 Yes .05ug Take 0.05 mcg by mouth. [facility] menthol-zin c oxide (CALMOSEPTI NE) 0.44-20.6 % ointment 06-28 00:00: 00 09-29 04:59 :00 No [id number] APPLY TO AFFECTED AREA TWICE A DAY DIRECTED [facility] SERTraline 50 mg tablet 06-28 00:00: 00 09-27 04:59 :00 No [id number] 50mg Take 1 tablet by mouth daily for 90 days. [facility] losartan 25 mg tablet 2022-0 5-24 00:00: 00 09-27 04:59 :00 No [id number] 12.5mg Take 0.5 tablets by mouth daily for 90 days. [facility] hydrOXYzine 25 mg tablet 06-28 00:00: 00 08-28 04:59 :00 No [id number] 25mg Take 1 tablet by mouth at bedtime as needed for Itching (1-2 tabs before bed) for up to 60 days. [facility] Belsomra 10 MG Belsomra 10 MG 05-30 00:00: 00 No Belsomra 10 MG Belsomra 10 MG Belsomra 10 MG 05-30 00:00: 00 No Belsomra 10 MG BELSOMRA 10 mg Tab 05-30 00:00: 00 10-08 00:00 :00 No TAKE 1 TABLET AT BEDTIME NEEDED ORALLY ONCE A DAY AT BEDTIME 30 DAYS [facility] diazePAM 5 mg tablet 05-28 00:00: 00 05-30 00:00 :00 No 2.5mg Take 0.5 tablets by mouth as needed. liquid [facility] metoprolol tartrate 100 mg tablet 05-24 00:00: 00 05-17 00:00 :00 No [id number] 100mg Take 1 tablet by mouth 2 (two) times daily. [facility] Belsomra 10 MG Belsomra 10 MG 02-21 00:00: 00 No 1{table t_at_be dtime_a s_neede d} Belsomra 10 MG Belsomra 10 MG Belsomra 10 MG 02-21 00:00: 00 No 1{table t_at_be dtime_a s_neede d} Belsomra 10 MG Diazepam 5 MG Diazepam 5 MG - 00:00: 00 No Diazepam 5 MG Diazepam 5 MG Diazepam 5 MG - 00:00: 00 No Diazepam 5 MG Diazepam 5 MG Diazepam 5 MG - 00:00: 00 No Diazepam 5 MG Diazepam 5 MG Diazepam 5 MG 0 02-07 00:00: 00 No Diazepam 5 MG Calmoseptin e 0.44-20.6 % Calmoseptin e 0.44-20.6 % 0 02-07 00:00: 00 05-08 00:00 :00 No BID Calmosepti ne 0.44-20.6 % Calmoseptin e 0.44-20.6 % Calmoseptin e 0.44-20.6 % 0 - 00:00: 00 05-08 00:00 :00 No BID Calmosepti ne 0.44-20.6 % Calmoseptin e 0.44-20.6 % Calmoseptin e 0.44-20.6 % 0 - 00:00: 00 05-08 00:00 :00 No BID Calmosepti ne 0.44-20.6 % Blood Pressure Mon/Auto/Wr ist - Blood Pressure Mon/Auto/Wr ist - 2020-02 0-13 00:00: 00 No Blood Pressure Mon/Auto/W rist - Blood Pressure Mon/Auto/Wr ist - Blood Pressure Mon/Auto/Wr ist - 2020-02 0-13 00:00: 00 No Blood Pressure Mon/Auto/W rist - Blood Pressure Mon/Auto/Wr ist - Blood Pressure Mon/Auto/Wr ist - 2020-02 0-13 00:00: 00 No Blood Pressure Mon/Auto/W rist - Blood Pressure Mon/Auto/Wr ist - Blood Pressure Mon/Auto/Wr ist - 2020-02 0-13 00:00: 00 No Blood Pressure Mon/Auto/W rist - Blood Pressure Mon/Auto/Wr ist - Blood Pressure Mon/Auto/Wr ist - 2020-02 0-13 00:00: 00 No Blood Pressure Mon/Auto/W rist - Blood Pressure Mon/Auto/Wr ist - Blood Pressure Mon/Auto/Wr ist - 2020-02 0-13 00:00: 00 No Blood Pressure Mon/Auto/W rist - Blood Pressure Mon/Auto/Wr ist - Blood Pressure Mon/Auto/Wr ist - 2020-02 0-13 00:00: 00 No Blood Pressure Mon/Auto/W rist - Santyl 250 UNIT/GM Santyl 250 UNIT/GM 1-0 4-19 00:00: 00 No QD Santyl 250 UNIT/GM Heel/Ankle Protector - Heel/Ankle Protector - 1-0 4-19 00:00: 00 No Heel/Ankle Protector - Santyl 250 UNIT/GM Santyl 250 UNIT/GM 1-0 4-19 00:00: 00 No QD Santyl 250 UNIT/GM Heel/Ankle Protector - Heel/Ankle Protector - 1-0 4-19 00:00: 00 No Heel/Ankle Protector - Santyl 250 UNIT/GM Santyl 250 UNIT/GM 1-0 4-19 00:00: 00 No QD Santyl 250 UNIT/GM Heel/Ankle Protector - Heel/Ankle Protector - 1-0 4-19 00:00: 00 No Heel/Ankle Protector - Santyl 250 UNIT/GM Santyl 250 UNIT/GM 1-0 4-19 00:00: 00 No QD Santyl 250 UNIT/GM Heel/Ankle Protector - Heel/Ankle Protector - 1-0 4-19 00:00: 00 No Heel/Ankle Protector - Heel/Ankle Protector - Heel/Ankle Protector - 1-0 4-19 00:00: 00 No Heel/Ankle Protector - Santyl 250 UNIT/GM Santyl 250 UNIT/GM 1-0 4-19 00:00: 00 No QD Santyl 250 UNIT/GM Heel/Ankle Protector - Heel/Ankle Protector - 1-0 4-19 00:00: 00 No Heel/Ankle Protector - Santyl 250 UNIT/GM Santyl 250 UNIT/GM 1-0 4-19 00:00: 00 No QD Santyl 250 UNIT/GM Heel/Ankle Protector - Heel/Ankle Protector - 1-0 4-19 00:00: 00 No Heel/Ankle Protector - Santyl 250 UNIT/GM Santyl 250 UNIT/GM 1-0 4-19 00:00: 00 No QD Santyl 250 UNIT/GM alendronate 70 mg tablet 2019-02 0-05 00:00: 00 10-30 00:00 :00 No [facility] Blood Pressure Monitor Automat - Blood Pressure Monitor Automat - 2020-0 9-21 00:00: 00 No QD Blood Pressure Monitor Automat - Blood Pressure Monitor Automat - Blood Pressure Monitor Automat - 2020-0 9-21 00:00: 00 No QD Blood Pressure Monitor Automat - Blood Pressure Monitor Automat - Blood Pressure Monitor Automat - 2020-0 9-21 00:00: 00 No QD Blood Pressure Monitor Automat - Blood Pressure Monitor Automat - Blood Pressure Monitor Automat - 2020-0 9-21 00:00: 00 No QD Blood Pressure Monitor Automat - Blood Pressure Monitor Automat - Blood Pressure Monitor Automat - 2020-0 9-21 00:00: 00 No QD Blood Pressure Monitor Automat - Blood Pressure Monitor Automat - Blood Pressure Monitor Automat - 2020-0 9-21 00:00: 00 No QD Blood Pressure Monitor Automat - Blood Pressure Monitor Automat - Blood Pressure Monitor Automat - 2020-0 9-21 00:00: 00 No QD Blood Pressure Monitor Automat - Blood Pressure Monitor Automat - Blood Pressure Monitor Automat - 2020-0 9-21 00:00: 00 No QD Blood Pressure Monitor Automat - Triamcinolo ne Acetonide Triamcinolo ne Acetonide 2020-0 8-18 00:00: 00 Yes Waleska [place] 1 applicatio n [facility] Sertraline HCl Sertraline HCl 2020-0 8-18 00:00: 00 Yes Waleska Martinez 1 tablet [facility] Sertraline HCl 100 MG Sertraline HCl 100 MG 2020-0 8-18 00:00: 00 No 1{table t} QD Sertraline HCl 100 MG Sertraline HCl 100 MG Sertraline HCl 100 MG 2020-0 8-18 00:00: 00 No 1{table t} QD Sertraline HCl 100 MG Sertraline HCl 100 MG Sertraline HCl 100 MG 2020-0 8-18 00:00: 00 No 1{table t} QD Sertraline HCl 100 MG Sertraline HCl 100 MG Sertraline HCl 100 MG 2020-0 8-18 00:00: 00 No 1{table t} QD Sertraline HCl 100 MG Sertraline HCl 100 MG Sertraline HCl 100 MG 2020-0 8-18 00:00: 00 No 1{table t} QD Sertraline HCl 100 MG Sertraline HCl 100 MG Sertraline HCl 100 MG 2019-0 8-18 00:00: 00 No 1{table t} QD Sertraline HCl 100 MG Sertraline HCl 100 MG Sertraline HCl 100 MG 2019-0 8-18 00:00: 00 No 1{table t} QD Sertraline HCl 100 MG Sertraline HCl 100 MG Sertraline HCl 100 MG 2019-0 8-18 00:00: 00 No 1{table t} QD Sertraline HCl 100 MG Belsomra Belsomra 2019-0 507 00:00: 00 Yes [place]ka [place] 1 tablet at bedtime as needed [facility] Belsomra 10 MG Belsomra 10 MG 2019-0 06-11 00:00: 00 No 1{table t_at_be dtime_a s_neede d} Belsomra 10 MG Belsomra 10 MG Belsomra 10 MG 2019-0 06-11 00:00: 00 No 1{table t_at_be dtime_a s_neede d} Belsomra 10 MG Belsomra 10 MG Belsomra 10 MG 2019-0 507 00:00: 00 No 1{table t_at_be dtime_a s_neede d} Belsomra 10 MG Belsomra 10 MG Belsomra 10 MG 2019-0 5 00:00: 00 No 1{table t_at_be dtime_a s_neede d} Belsomra 10 MG Meclizine HCl Meclizine HCl 1- 00:00: 00 Yes [place]ka [place] 1 tablet as needed [facility] cyanocobala min, vitamin B-12, (VITAMIN B-12 SL) 09-11 09:42: [address] under the tongue daily. [facility] Diazepam Diazepam Yes Waleska [place] 1/2 (2.5) tablet [facility] Metoprolol Succinate ER Metoprolol Succinate ER Yes Waleska [place] 1 tablet [facility] Ferrous Sulfate Ferrous Sulfate Yes Waleska [place] 1 tablet [facility] Sertraline HCl Sertraline HCl Yes Waleska Martinez 1 tablet [facility] Bactrim DS Bactrim DS Yes Waleska Martinez 1 tablet [facility] Alendronate Sodium Alendronate Sodium Yes Waleska Martinez TAKE ONE (1) TABLET(S) BY MOUTH ONCE WEEKLY. TAKE 30 MINUTES BEFORE FOOD, BEVERAGE, OR OTHER MEDICATION S. TAKE WITH WATER. [facility] Ferrous Sulfate 325 MG Ferrous Sulfate 325 MG No 1{table t} QD Ferrous Sulfate 325 MG Imitrex 50 MG Imitrex 50 MG No Imitrex 50 MG Meclizine HCl 25 MG Meclizine HCl 25 MG No 1{table t_as_ne eded} QD Meclizine HCl 25 MG Diclofenac Sodium 1 % Diclofenac Sodium 1 % No Diclofenac Sodium 1 % Metoprolol Succinate ER 200 MG Metoprolol Succinate ER 200 MG No 1{table t} QD Metoprolol Succinate ER 200 MG Bactrim DS 800-160 MG Bactrim DS 800-160 MG No 1{table t} Bactrim DS 800-160 MG Alendronate Sodium 70 MG Alendronate Sodium 70 MG No Alendronat e Sodium 70 MG Ferrous Sulfate 325 MG Ferrous Sulfate 325 MG No 1{table t} QD Ferrous Sulfate 325 MG Imitrex 50 MG Imitrex 50 MG No Imitrex 50 MG Meclizine HCl 25 MG Meclizine HCl 25 MG No 1{table t_as_ne eded} QD Meclizine HCl 25 MG Diclofenac Sodium 1 % Diclofenac Sodium 1 % No Diclofenac Sodium 1 % Diazepam 5 MG Diazepam 5 MG No Diazepam 5 MG Metoprolol Succinate ER 200 MG Metoprolol Succinate ER 200 MG No 1{table t} QD Metoprolol Succinate ER 200 MG Bactrim DS 800-160 MG Bactrim DS 800-160 MG No 1{table t} Bactrim DS 800-160 MG Alendronate Sodium 70 MG Alendronate Sodium 70 MG No Alendronat e Sodium 70 MG Ferrous Sulfate 325 MG Ferrous Sulfate 325 MG No 1{table t} QD Ferrous Sulfate 325 MG Imitrex 50 MG Imitrex 50 MG No Imitrex 50 MG Meclizine HCl 25 MG Meclizine HCl 25 MG No 1{table t_as_ne eded} QD Meclizine HCl 25 MG Diclofenac Sodium 1 % Diclofenac Sodium 1 % No Diclofenac Sodium 1 % Diazepam 5 MG Diazepam 5 MG No Diazepam 5 MG Metoprolol Succinate ER 200 MG Metoprolol Succinate ER 200 MG No 1{table t} QD Metoprolol Succinate ER 200 MG Bactrim DS 800-160 MG Bactrim DS 800-160 MG No 1{table t} Bactrim DS 800-160 MG Ferrous Sulfate 325 MG Ferrous Sulfate 325 MG No 1{table t} QD Ferrous Sulfate 325 MG Imitrex 50 MG Imitrex 50 MG No Imitrex 50 MG Meclizine HCl 25 MG Meclizine HCl 25 MG No 1{table t_as_ne eded} QD Meclizine HCl 25 MG Metoprolol Succinate ER 200 MG Metoprolol Succinate ER 200 MG No 1{table t} QD Metoprolol Succinate ER 200 MG Alendronate Sodium 70 MG Alendronate Sodium 70 MG No Alendronat e Sodium 70 MG Diclofenac Sodium 1 % Diclofenac Sodium 1 % No Diclofenac Sodium 1 % Bactrim DS 800-160 MG Bactrim DS 800-160 MG No 1{table t} Bactrim DS 800-160 MG Alendronate Sodium 70 MG Alendronate Sodium 70 MG No Alendronat e Sodium 70 MG Bactrim DS 800-160 MG Bactrim DS 800-160 MG No 1{table t} Bactrim DS 800-160 MG Metoprolol Succinate ER 200 MG Metoprolol Succinate ER 200 MG No Metoprolol Succinate ER 200 MG Meclizine HCl 25 MG Meclizine HCl 25 MG No 1{table t_as_ne eded} QD Meclizine HCl 25 MG Ferrous Sulfate 325 MG Ferrous Sulfate 325 MG No 1{table t} QD Ferrous Sulfate 325 MG Diclofenac Sodium 1 % Diclofenac Sodium 1 % No Diclofenac Sodium 1 % Imitrex 50 MG Imitrex 50 MG No Imitrex 50 MG Sertraline HCl 50 MG Sertraline HCl 50 MG No Sertraline HCl 50 MG Metoprolol Succinate ER 200 MG Metoprolol Succinate ER 200 MG No Metoprolol Succinate ER 200 MG Sertraline HCl 50 MG Sertraline HCl 50 MG No Sertraline HCl 50 MG Meclizine HCl 25 MG Meclizine HCl 25 MG No 1{table t_as_ne eded} QD Meclizine HCl 25 MG Ferrous Sulfate 325 MG Ferrous Sulfate 325 MG No 1{table t} QD Ferrous Sulfate 325 MG Diclofenac Sodium 1 % Diclofenac Sodium 1 % No Diclofenac Sodium 1 % Bactrim DS 800-160 MG Bactrim DS 800-160 MG No 1{table t} Bactrim DS 800-160 MG Alendronate Sodium 70 MG Alendronate Sodium 70 MG No Alendronat e Sodium 70 MG Metoprolol Succinate ER 200 MG Metoprolol Succinate ER 200 MG No Metoprolol Succinate ER 200 MG Sertraline HCl 50 MG Sertraline HCl 50 MG No Sertraline HCl 50 MG Meclizine HCl 25 MG Meclizine HCl 25 MG No 1{table t_as_ne eded} QD Meclizine HCl 25 MG Ferrous Sulfate 325 MG Ferrous Sulfate 325 MG No 1{table t} QD Ferrous Sulfate 325 MG Diclofenac Sodium 1 % Diclofenac Sodium 1 % No Diclofenac Sodium 1 % Bactrim DS 800-160 MG Bactrim DS 800-160 MG No 1{table t} Bactrim DS 800-160 MG Alendronate Sodium 70 MG Alendronate Sodium 70 MG No Alendronat e Sodium 70 MG Immunizations Ordered Immunization Name Filled Immunization Name Date Status Comments Source Influenza Virus Vaccine 2007-11-30 00:00:00 Completed [facility] Influenza Virus Vaccine (3+ yrs) 2007-11-30 00:00:00 Completed [facility] Influenza Virus Vaccine 2007-11-30 00:00:00 Completed [facility] Influenza Virus Vaccine (3+ yrs) 2007-11-30 00:00:00 Completed [facility] Influenza Virus Vaccine 2007-11-30 00:00:00 Completed [facility] Influenza Virus Vaccine (3+ yrs) 2007-11-30 00:00:00 Completed [facility] Influenza Virus Vaccine 2007-11-30 00:00:00 Completed [facility] Influenza Virus Vaccine (3+ yrs) 2007-11-30 00:00:00 Completed [facility] Influenza Virus Vaccine 2007-11-30 00:00:00 Completed [facility] Influenza Virus Vaccine (3+ yrs) 2007-11-30 00:00:00 Completed [facility] Influenza Virus Vaccine 2007-11-30 00:00:00 Completed [facility] Influenza Virus Vaccine (3+ yrs) 2007-11-30 00:00:00 Completed [facility] Influenza Virus Vaccine 2007-11-30 00:00:00 Completed [facility] Influenza Virus Vaccine (3+ yrs) 2007-11-30 00:00:00 Completed [facility] Influenza Virus Vaccine 2007-11-30 00:00:00 Completed [facility] Influenza Virus Vaccine (3+ yrs) 2007-11-30 00:00:00 Completed [facility] Influenza Virus Vaccine 2007-11-30 00:00:00 Completed [facility] Influenza Virus Vaccine (3+ yrs) 2007-11-30 00:00:00 Completed [facility] Influenza Virus Vaccine 2007-11-30 00:00:00 Completed [facility] Influenza Virus Vaccine (3+ yrs) 2007-11-30 00:00:00 Completed [facility] Influenza Virus Vaccine 2007-11-30 00:00:00 Completed [facility] Influenza Virus Vaccine (3+ yrs) 2007-11-30 00:00:00 Completed [facility] Influenza Virus Vaccine 2007-11-30 00:00:00 Completed [facility] Influenza Virus Vaccine (3+ yrs) 2007-11-30 00:00:00 Completed [facility] Influenza Virus Vaccine 2007-11-30 00:00:00 Completed [facility] Influenza Virus Vaccine (3+ yrs) 2007-11-30 00:00:00 Completed [facility] Influenza Virus Vaccine 2007-11-30 00:00:00 Completed [facility] Influenza Virus Vaccine (3+ yrs) 2007-11-30 00:00:00 Completed [facility] Influenza Virus Vaccine 2007-11-30 00:00:00 Completed [facility] Influenza Virus Vaccine (3+ yrs) 2007-11-30 00:00:00 Completed [facility] Influenza Virus Vaccine 2007-11-30 00:00:00 Completed [facility] Influenza Virus Vaccine (3+ yrs) 2007-11-30 00:00:00 Completed [facility] Influenza Virus Vaccine 2007-11-30 00:00:00 Completed [facility] Influenza Virus Vaccine (3+ yrs) 2007-11-30 00:00:00 Completed [facility] Influenza Virus Vaccine 2007-11-30 00:00:00 Completed [facility] Influenza Virus Vaccine (3+ yrs) 2007-11-30 00:00:00 Completed [facility] Influenza Virus Vaccine 2007-11-30 00:00:00 Completed [facility] Influenza Virus Vaccine (3+ yrs) 2007-11-30 00:00:00 Completed [facility] Influenza Virus Vaccine 2007-11-30 00:00:00 Completed [facility] Influenza Virus Vaccine (3+ yrs) 2007-11-30 00:00:00 Completed [facility] Influenza Virus Vaccine (3+ yrs) 2007-11-30 00:00:00 Completed [facility] Influenza Virus Vaccine 2007-11-30 00:00:00 Completed [facility] Influenza Virus Vaccine (3+ yrs) 2007-11-30 00:00:00 Completed [facility] Influenza Virus Vaccine 2007-11-30 00:00:00 Completed [facility] Influenza Virus Vaccine (3+ yrs) 2007-11-30 00:00:00 Completed [facility] Influenza Virus Vaccine 2007-11-30 00:00:00 Completed [facility] Influenza Virus Vaccine (3+ yrs) 2007-11-30 00:00:00 Completed [facility] Influenza Virus Vaccine 2007-11-30 00:00:00 Completed [facility] Influenza Virus Vaccine (3+ yrs) 2007-11-30 00:00:00 Completed [facility] Influenza Virus Vaccine 2007-11-30 00:00:00 Completed [facility] Influenza Virus Vaccine (3+ yrs) 2007-11-30 00:00:00 Completed [facility] Influenza Virus Vaccine 2007-11-30 00:00:00 Completed Influenza, split virus, trivalent, preservative (3+ Yrs) (Afluria) 2007-11-30 00:00:00 Completed Influenza Virus Vaccine 2007-11-30 00:00:00 Completed Influenza, split virus, trivalent, preservative (3+ Yrs) (Afluria) 2007-11-30 00:00:00 Completed Influenza Virus Vaccine 2003-12-02 00:00:00 Completed [facility] Influenza Virus Vaccine (3+ yrs) 2003-12-02 00:00:00 Completed [facility] Influenza Virus Vaccine 2003-12-02 00:00:00 Completed [facility] Influenza Virus Vaccine (3+ yrs) 2003-12-02 00:00:00 Completed [facility] Influenza Virus Vaccine 2003-12-02 00:00:[address] [facility] Influenza Virus Vaccine (3+ yrs) 2003-12-02 00:00:00 Completed [facility] Influenza Virus Vaccine 2003-12-02 00:00:00 Completed [facility] Influenza Virus Vaccine (3+ yrs) 2003-12-02 00:00:00 Completed [facility] Influenza Virus Vaccine 2003-12-02 00:00:00 Completed [facility] Influenza Virus Vaccine (3+ yrs) 2003-12-02 00:00:00 Completed [facility] Influenza Virus Vaccine 2003-12-02 00:00:00 Completed [facility] Influenza Virus Vaccine (3+ yrs) 2003-12-02 00:00:00 Completed [facility] Influenza Virus Vaccine 2003-12-02 00:00:00 Completed [facility] Influenza Virus Vaccine (3+ yrs) 2003-12-02 00:00:00 Completed [facility] Influenza Virus Vaccine 2003-12-02 00:00:00 Completed [facility] Influenza Virus Vaccine (3+ yrs) 2003-12-02 00:00:00 Completed [facility] Influenza Virus Vaccine 2003-12-02 00:00:00 Completed [facility] Influenza Virus Vaccine (3+ yrs) 2003-12-02 00:00:00 Completed [facility] Influenza Virus Vaccine 2003-12-02 00:00:00 Completed [facility] Influenza Virus Vaccine (3+ yrs) 2003-12-02 00:00:00 Completed [facility] Influenza Virus Vaccine 2003-12-02 00:00:00 Completed [facility] Influenza Virus Vaccine (3+ yrs) 2003-12-02 00:00:00 Completed [facility] Influenza Virus Vaccine 2003-12-02 00:00:00 Completed [facility] Influenza Virus Vaccine (3+ yrs) 2003-12-02 00:00:00 Completed [facility] Influenza Virus Vaccine 2003-12-02 00:00:00 Completed [facility] Influenza Virus Vaccine (3+ yrs) 2003-12-02 00:00:00 Completed [facility] Influenza Virus Vaccine 2003-12-02 00:00:00 Completed [facility] Influenza Virus Vaccine (3+ yrs) 2003-12-02 00:00:00 Completed [facility] Influenza Virus Vaccine 2003-12-02 00:00:00 Completed [facility] Influenza Virus Vaccine (3+ yrs) 2003-12-02 00:00:00 Completed [facility] Influenza Virus Vaccine 2003-12-02 00:00:00 Completed [facility] Influenza Virus Vaccine (3+ yrs) 2003-12-02 00:00:00 Completed [facility] Influenza Virus Vaccine 2003-12-02 00:00:00 Completed [facility] Influenza Virus Vaccine (3+ yrs) 2003-12-02 00:00:00 Completed [facility] Influenza Virus Vaccine 2003-12-02 00:00:00 Completed [facility] Influenza Virus Vaccine (3+ yrs) 2003-12-02 00:00:00 Completed [facility] Influenza Virus Vaccine 2003-12-02 00:00:00 Completed [facility] Influenza Virus Vaccine (3+ yrs) 2003-12-02 00:00:00 Completed [facility] Influenza Virus Vaccine 2003-12-02 00:00:00 Completed [facility] Influenza Virus Vaccine (3+ yrs) 2003-12-02 00:00:00 Completed [facility] Influenza Virus Vaccine 2003-12-02 00:00:00 Completed [facility] Influenza Virus Vaccine 2003-12-02 00:00:00 Completed [facility] Influenza Virus Vaccine (3+ yrs) 2003-12-02 00:00:00 Completed [facility] Influenza Virus Vaccine 2003-12-02 00:00:00 Completed [facility] Influenza Virus Vaccine (3+ yrs) 2003-12-02 00:00:00 Completed [facility] Influenza Virus Vaccine 2003-12-02 00:00:00 Completed [facility] Influenza Virus Vaccine (3+ yrs) 2003-12-02 00:00:00 Completed [facility] Influenza Virus Vaccine 2003-12-02 00:00:00 Completed [facility] Influenza Virus Vaccine (3+ yrs) 2003-12-02 00:00:00 Completed [facility] Influenza Virus Vaccine 2003-12-02 00:00:00 Completed [facility] Influenza Virus Vaccine (3+ yrs) 2003-12-02 00:00:00 Completed [facility] Influenza Virus Vaccine 2003-12-02 00:00:00 Completed Influenza, split virus, trivalent, preservative (3+ Yrs) (Afluria) 2003-12-02 00:00:00 Completed Influenza Virus Vaccine 2003-12-02 00:00:00 Completed [facility] Influenza, split virus, trivalent, preservative (3+ Yrs) (Afluria) 2003-12-02 00:00:00 Completed DTAP 2000-09-17 00:00:00 Completed [facility] IPV 2000-09-17 00:00:00 Completed [facility] MMR 2000-09-17 00:00:00 Completed [facility] DTAP 2000-09-17 00:00:00 Completed [facility] IPV 2000-09-17 00:00:00 Completed [facility] MMR 2000-09-17 00:00:00 Completed [facility] DTAP 2000-09-17 00:00:00 Completed [facility] IPV 2000-09-17 00:00:00 Completed [facility] MMR 2000-09-17 00:00:00 Completed [facility] DTAP 2000-09-17 00:00:00 Completed [facility] IPV 2000-09-17 00:00:00 Completed [facility] MMR 2000-09-17 00:00:00 Completed [facility] DTAP 2000-09-17 00:00:00 Completed [facility] IPV 2000-09-17 00:00:00 Completed [facility] MMR 2000-09-17 00:00:00 Completed [facility] DTAP 2000-09-17 00:00:00 Completed [facility] IPV 2000-09-17 00:00:00 Completed [facility] MMR 2000-09-17 00:00:00 Completed [facility] DTAP 2000-09-17 00:00:00 Completed [facility] IPV 2000-09-17 00:00:00 Completed [facility] MMR 2000-09-17 00:00:00 Completed [facility] DTAP 2000-09-17 00:00:[address] [facility] IPV 2000-09-17 00:00:[address] [facility] MMR 2000-09-17 00:00:[address] [facility] DTAP 2000-09-17 00:00:[address] [facility] IPV 2000-09-17 00:00:[address] [facility] MMR 2000-09-17 00:00:[address] [facility] DTAP 2000-09-17 00:00:[address] [facility] IPV 2000-09-17 00:00:[address] [facility] MMR 2000-09-17 00:00:[address] [facility] DTAP 2000-09-17 00:00:00 Completed [facility] IPV 2000-09-17 00:00:00 Completed [facility] MMR 2000-09-17 00:00:00 Completed [facility] DTAP 2000-09-17 00:00:00 Completed [facility] IPV 2000-09-17 00:00:[address] [facility] MMR 2000-09-17 00:00:[address] [facility] DTAP 2000-09-17 00:00:[address] [facility] IPV 2000-09-17 00:00:[address] [facility] MMR 2000-09-17 00:00:[address] [facility] DTAP 2000-09-17 00:00:[address] [facility] IPV 2000-09-17 00:00:[address] [facility] MMR 2000-09-17 00:00:[address] [facility] DTAP 2000-09-17 00:00:[address] [facility] IPV 2000-09-17 00:00:[address] [facility] MMR 2000-09-17 00:00:[address] [facility] DTAP 2000-09-17 00:00:[address] [facility] IPV 2000-09-17 00:00:[address] [facility] MMR 2000-09-17 00:00:[address] [facility] DTAP 2000-09-17 00:00:[address] [facility] IPV 2000-09-17 00:00:[address] [facility] MMR 2000-09-17 00:00:[address] [facility] DTAP 2000-09-17 00:00:00 Completed [facility] IPV 2000-09-17 00:00:[address] [facility] MMR 2000-09-17 00:00:[address] [facility] DTAP 2000-09-17 00:00:[address] [facility] IPV 2000-09-17 00:00:00 Completed [facility] MMR 2000-09-17 00:00:[address] [facility] DTAP 2000-09-17 00:00:00 Completed [facility] IPV 2000-09-17 00:00:00 Completed [facility] MMR 2000-09-17 00:00:00 Completed [facility] DTAP 2000-09-17 00:00:00 Completed [facility] IPV 2000-09-17 00:00:00 Completed [facility] MMR 2000-09-17 00:00:00 Completed [facility] DTAP 2000-09-17 00:00:00 Completed [facility] IPV 2000-09-17 00:00:[address] [facility] MMR 2000-09-17 00:00:[address] [facility] DTAP 2000-09-17 00:00:[address] [facility] IPV 2000-09-17 00:00:[address] [facility] MMR 2000-09-17 00:00:00 Completed [facility] DTAP 2000-09-17 00:00:00 Completed [facility] IPV 2000-09-17 00:00:[address] [facility] MMR 2000-09-17 00:00:[address] [facility] DTAP 2000-09-17 00:00:[address] [facility] IPV 2000-09-17 00:00:00 Completed [facility] MMR 2000-09-17 00:00:[address] [facility] DTAP 2000-09-17 00:00:[address] [facility] IPV 2000-09-17 00:00:00 Completed MMR 2000-09-17 00:00:00 Completed DTAP 2000-09-17 00:00:[address] [facility] IPV 2000-09-17 00:00:00 Completed MMR 2000-09-17 00:00:00 Completed DTAP 1999-09-21 00:00:00 Completed [facility] IPV 1999-09-21 00:00:00 Completed [facility] MMR 1999-09-21 00:00:00 Completed [facility] Varicella (varivax)(chicken pox) 1999-09-21 00:00:00 Completed [facility] DTAP 1999-09-21 00:00:00 Completed [facility] IPV 1999-09-21 00:00:00 Completed [facility] MMR 1999-09-21 00:00:00 Completed [facility] Varicella (varivax)(chicken pox) 1999-09-21 00:00:00 Completed [facility] DTAP 1999-09-21 00:00:00 Completed [facility] IPV 1999-09-21 00:00:00 Completed [facility] MMR 1999-09-21 00:00:00 Completed [facility] Varicella (varivax)(chicken pox) 1999-09-21 00:00:00 Completed [facility] DTAP 1999-09-21 00:00:00 Completed [facility] IPV 1999-09-21 00:00:00 Completed [facility] MMR 1999-09-21 00:00:00 Completed [facility] Varicella (varivax)(chicken pox) 1999-09-21 00:00:00 Completed [facility] DTAP 1999-09-21 00:00:00 Completed [facility] IPV 1999-09-21 00:00:00 Completed [facility] MMR 1999-09-21 00:00:00 Completed [facility] Varicella (varivax)(chicken pox) 1999-09-21 00:00:00 Completed [facility] DTAP 1999-09-21 00:00:00 Completed [facility] IPV 1999-09-21 00:00:00 Completed [facility] MMR 1999-09-21 00:00:00 Completed [facility] Varicella (varivax)(chicken pox) 1999-09-21 00:00:00 Completed [facility] DTAP 1999-09-21 00:00:00 Completed [facility] IPV 1999-09-21 00:00:00 Completed [facility] MMR 1999-09-21 00:00:00 Completed [facility] Varicella (varivax)(chicken pox) 1999-09-21 00:00:00 Completed [facility] DTAP 1999-09-21 00:00:00 Completed [facility] IPV 1999-09-21 00:00:00 Completed [facility] MMR 1999-09-21 00:00:00 Completed [facility] Varicella (varivax)(chicken pox) 1999-09-21 00:00:00 Completed [facility] DTAP 1999-09-21 00:00:00 Completed [facility] IPV 1999-09-21 00:00:00 Completed [facility] MMR 1999-09-21 00:00:00 Completed [facility] Varicella (varivax)(chicken pox) 1999-09-21 00:00:00 Completed [facility] DTAP 1999-09-21 00:00:00 Completed [facility] IPV 1999-09-21 00:00:00 Completed [facility] MMR 1999-09-21 00:00:00 Completed [facility] Varicella (varivax)(chicken pox) 1999-09-21 00:00:00 Completed [facility] DTAP 1999-09-21 00:00:00 Completed [facility] IPV 1999-09-21 00:00:00 Completed [facility] MMR 1999-09-21 00:00:00 Completed [facility] Varicella (varivax)(chicken pox) 1999-09-21 00:00:00 Completed [facility] DTAP 1999-09-21 00:00:00 Completed [facility] IPV 1999-09-21 00:00:00 Completed [facility] MMR 1999-09-21 00:00:00 Completed [facility] Varicella (varivax)(chicken pox) 1999-09-21 00:00:00 Completed [facility] DTAP 1999-09-21 00:00:00 Completed [facility] IPV 1999-09-21 00:00:00 Completed [facility] MMR 1999-09-21 00:00:00 Completed [facility] Varicella (varivax)(chicken pox) 1999-09-21 00:00:00 Completed [facility] DTAP 1999-09-21 00:00:00 Completed [facility] IPV 1999-09-21 00:00:00 Completed [facility] MMR 1999-09-21 00:00:00 Completed [facility] Varicella (varivax)(chicken pox) 1999-09-21 00:00:00 Completed [facility] DTAP 1999-09-21 00:00:00 Completed [facility] IPV 1999-09-21 00:00:00 Completed [facility] MMR 1999-09-21 00:00:00 Completed [facility] Varicella (varivax)(chicken pox) 1999-09-21 00:00:00 Completed [facility] DTAP 1999-09-21 00:00:00 Completed [facility] IPV 1999-09-21 00:00:00 Completed [facility] MMR 1999-09-21 00:00:00 Completed [facility] Varicella (varivax)(chicken pox) 1999-09-21 00:00:00 Completed [facility] DTAP 1999-09-21 00:00:00 Completed [facility] IPV 1999-09-21 00:00:00 Completed [facility] MMR 1999-09-21 00:00:00 Completed [facility] Varicella (varivax)(chicken pox) 1999-09-21 00:00:00 Completed [facility] DTAP 1999-09-21 00:00:00 Completed [facility] IPV 1999-09-21 00:00:00 Completed [facility] MMR 1999-09-21 00:00:00 Completed [facility] Varicella (varivax)(chicken pox) 1999-09-21 00:00:00 Completed [facility] DTAP 1999-09-21 00:00:00 Completed [facility] IPV 1999-09-21 00:00:00 Completed [facility] MMR 1999-09-21 00:00:00 Completed [facility] Varicella (varivax)(chicken pox) 1999-09-21 00:00:00 Completed [facility] DTAP 1999-09-21 00:00:00 Completed [facility] IPV 1999-09-21 00:00:00 Completed [facility] MMR 1999-09-21 00:00:00 Completed [facility] Varicella (varivax)(chicken pox) 1999-09-21 00:00:00 Completed [facility] DTAP 1999-09-21 00:00:00 Completed [facility] MMR 1999-09-21 00:00:00 Completed [facility] DTAP 1999-09-21 00:00:00 Completed [facility] IPV 1999-09-21 00:00:00 Completed [facility] MMR 1999-09-21 00:00:00 Completed [facility] Varicella (varivax)(chicken pox) 1999-09-21 00:00:00 Completed [facility] DTAP 1999-09-21 00:00:00 Completed [facility] IPV 1999-09-21 00:00:00 Completed [facility] MMR 1999-09-21 00:00:00 Completed [facility] Varicella (varivax)(chicken pox) 1999-09-21 00:00:00 Completed [facility] DTAP 1999-09-21 00:00:00 Completed [facility] IPV 1999-09-21 00:00:00 Completed [facility] MMR 1999-09-21 00:00:00 Completed [facility] Varicella (varivax)(chicken pox) 1999-09-21 00:00:00 Completed [facility] DTAP 1999-09-21 00:00:00 Completed [facility] IPV 1999-09-21 00:00:00 Completed [facility] MMR 1999-09-21 00:00:00 Completed [facility] Varicella (varivax)(chicken pox) 1999-09-21 00:00:00 Completed [facility] DTAP 1999-09-21 00:00:00 Completed [facility] IPV 1999-09-21 00:00:00 Completed [facility] MMR 1999-09-21 00:00:00 Completed [facility] Varicella (varivax)(chicken pox) 1999-09-21 00:00:00 Completed [facility] DTAP 1999-09-21 00:00:00 Completed IPV 1999-09-21 00:00:00 Completed MMR 1999-09-21 00:00:00 Completed Varicella (varivax)(chicken pox) 1999-09-21 00:00:00 Completed [facility] DTAP 1999-09-21 00:00:00 Completed IPV 1999-09-21 00:00:00 Completed MMR 1999-09-21 00:00:00 Completed Varicella (varivax)(chicken pox) 1999-09-21 00:00:00 Completed [facility] DTAP 1996-12-09 00:00:00 Completed [facility] Heamophilus Influenza B 1996-12-09 00:00:00 Completed [facility] DTAP 1996-12-09 00:00:00 Completed [facility] Heamophilus Influenza B 1996-12-09 00:00:00 Completed [facility] DTAP 1996-12-09 00:00:00 Completed [facility] Heamophilus Influenza B 1996-12-09 00:00:00 Completed [facility] DTAP 1996-12-09 00:00:00 Completed [facility] Heamophilus Influenza B 1996-12-09 00:00:00 Completed [facility] DTAP 1996-12-09 00:00:00 Completed [facility] Heamophilus Influenza B 1996-12-09 00:00:00 Completed [facility] DTAP 1996-12-09 00:00:00 Completed [facility] Heamophilus Influenza B 1996-12-09 00:00:00 Completed [facility] DTAP 1996-12-09 00:00:00 Completed [facility] Heamophilus Influenza B 1996-12-09 00:00:00 Completed [facility] DTAP 1996-12-09 00:00:00 Completed [facility] Heamophilus Influenza B 1996-12-09 00:00:00 Completed [facility] DTAP 1996-12-09 00:00:00 Completed [facility] Heamophilus Influenza B 1996-12-09 00:00:00 Completed [facility] DTAP 1996-12-09 00:00:00 Completed [facility] Heamophilus Influenza B 1996-12-09 00:00:00 Completed [facility] DTAP 1996-12-09 00:00:00 Completed [facility] Heamophilus Influenza B 1996-12-09 00:00:00 Completed [facility] DTAP 1996-12-09 00:00:00 Completed [facility] Heamophilus Influenza B 1996-12-09 00:00:00 Completed [facility] DTAP 1996-12-09 00:00:00 Completed [facility] Heamophilus Influenza B 1996-12-09 00:00:00 Completed [facility] DTAP 1996-12-09 00:00:00 Completed [facility] Heamophilus Influenza B 1996-12-09 00:00:00 Completed [facility] DTAP 1996-12-09 00:00:00 Completed [facility] Heamophilus Influenza B 1996-12-09 00:00:00 Completed [facility] DTAP 1996-12-09 00:00:00 Completed [facility] Heamophilus Influenza B 1996-12-09 00:00:00 Completed [facility] DTAP 1996-12-09 00:00:00 Completed [facility] Heamophilus Influenza B 1996-12-09 00:00:00 Completed [facility] DTAP 1996-12-09 00:00:00 Completed [facility] Heamophilus Influenza B 1996-12-09 00:00:00 Completed [facility] DTAP 1996-12-09 00:00:00 Completed [facility] Heamophilus Influenza B 1996-12-09 00:00:00 Completed [facility] DTAP 1996-12-09 00:00:00 Completed [facility] Heamophilus Influenza B 1996-12-09 00:00:00 Completed [facility] DTAP 1996-12-09 00:00:00 Completed [facility] Heamophilus Influenza B 1996-12-09 00:00:00 Completed [facility] DTAP 1996-12-09 00:00:00 Completed [facility] Heamophilus Influenza B 1996-12-09 00:00:00 Completed [facility] DTAP 1996-12-09 00:00:00 Completed [facility] Heamophilus Influenza B 1996-12-09 00:00:00 Completed [facility] DTAP 1996-12-09 00:00:00 Completed [facility] Heamophilus Influenza B 1996-12-09 00:00:00 Completed [facility] DTAP 1996-12-09 00:00:00 Completed [facility] Heamophilus Influenza B 1996-12-09 00:00:00 Completed [facility] DTAP 1996-12-09 00:00:00 Completed Heamophilus Influenza B 1996-12-09 00:00:00 Completed DTAP 1996-12-09 00:00:00 Completed Heamophilus Influenza B 1996-12-09 00:00:00 Completed HEP B, Adult Dosage 1996-12-04 00:00:00 Completed [facility] Hep B, Adol or Pedi Dosage 1996-12-04 00:00:00 Completed [facility] HEP B, Adult Dosage 1996-12-04 00:00:00 Completed [facility] Hep B, Adol or Pedi Dosage 1996-12-04 00:00:00 Completed [facility] HEP B, Adult Dosage 1996-12-04 00:00:00 Completed [facility] Hep B, Adol or Pedi Dosage 1996-12-04 00:00:00 Completed [facility] HEP B, Adult Dosage 1996-12-04 00:00:00 Completed [facility] Hep B, Adol or Pedi Dosage 1996-12-04 00:00:00 Completed [facility] HEP B, Adult Dosage 1996-12-04 00:00:00 Completed [facility] Hep B, Adol or Pedi Dosage 1996-12-04 00:00:00 Completed [facility] HEP B, Adult Dosage 1996-12-04 00:00:00 Completed [facility] Hep B, Adol or Pedi Dosage 1996-12-04 00:00:00 Completed [facility] HEP B, Adult Dosage 1996-12-04 00:00:00 Completed [facility] Hep B, Adol or Pedi Dosage 1996-12-04 00:00:00 Completed [facility] HEP B, Adult Dosage 1996-12-04 00:00:00 Completed [facility] Hep B, Adol or Pedi Dosage 1996-12-04 00:00:00 Completed [facility] HEP B, Adult Dosage 1996-12-04 00:00:[address] [facility] Hep B, Adol or Pedi Dosage 1996-12-04 00:00:00 Completed [facility] HEP B, Adult Dosage 1996-12-04 00:00:00 Completed [facility] Hep B, Adol or Pedi Dosage 1996-12-04 00:00:00 Completed [facility] HEP B, Adult Dosage 1996-12-04 00:00:00 [facility] [facility] Adol or Pedi Dosage 1996-12-04 00:00:00 Completed [facility] HEP B, Adult Dosage 1996-12-04 00:00:00 Completed [facility] Hep B, Adol or Pedi Dosage 1996-12-04 00:00:00 Completed [facility] HEP B, Adult Dosage 1996-12-04 00:00:00 Completed [facility] Hep B, Adol or Pedi Dosage 1996-12-04 00:00:00 Completed [facility] HEP B, Adult Dosage 1996-12-04 00:00:00 Completed [facility] Hep B, Adol or Pedi Dosage 1996-12-04 00:00:00 Completed [facility] HEP B, Adult Dosage 1996-12-04 00:00:00 Completed [facility] Hep B, Adol or Pedi Dosage 1996-12-04 00:00:00 Completed [facility] HEP B, Adult Dosage 1996-12-04 00:00:00 Completed [facility] Hep B, Adol or Pedi Dosage 1996-12-04 00:00:[address] [facility] HEP B, Adult Dosage 1996-12-04 00:00:00 Completed [facility] Hep B, Adol or Pedi Dosage 1996-12-04 00:00:00 Completed [facility] HEP B, Adult Dosage 1996-12-04 00:00:00 Completed [facility] Hep B, Adol or Pedi Dosage 1996-12-04 00:00:00 Completed [facility] HEP B, Adult Dosage 1996-12-04 00:00:00 Completed [facility] Hep B, Adol or Pedi Dosage 1996-12-04 00:00:00 Completed [facility] HEP B, Adult Dosage 1996-12-04 00:00:00 Completed [facility] Hep B, Adol or Pedi Dosage 1996-12-04 00:00:00 Completed [facility] HEP B, Adult Dosage 1996-12-04 00:00:00 Completed [facility] Hep B, Adol or Pedi Dosage 1996-12-04 00:00:00 Completed [facility] HEP B, Adult Dosage 1996-12-04 00:00:00 Completed [facility] Hep B, Adol or Pedi Dosage 1996-12-04 00:00:00 Completed [facility] HEP B, Adult Dosage 1996-12-04 00:00:00 Completed [facility] Hep B, Adol or Pedi Dosage 1996-12-04 00:00:00 Completed [facility] HEP B, Adult Dosage 1996-12-04 00:00:00 Completed [facility] Hep B, Adol or Pedi Dosage 1996-12-04 00:00:00 Completed [facility] HEP B, Adult Dosage 1996-12-04 00:00:00 Completed [facility] Hep B, Adol or Pedi Dosage 1996-12-04 00:00:00 Completed [facility] HEP B, Adult Dosage 1996-12-04 00:00:00 Completed Hep B, Adol or Pedi Dosage 1996-12-04 00:00:00 Completed HEP B, Adult Dosage 1996-12-04 00:00:00 Completed Hep B, Adol or Pedi Dosage 1996-12-04 00:00:00 Completed DPT/HIB 1996-02-04 00:00:00 Completed [facility] OPV 1996-02-04 00:00:00 Completed [facility] Polio (IPV/OPV) 1996-02-04 00:00:00 Completed [facility] DPT/HIB 1996-02-04 00:00:00 Completed [facility] OPV 1996-02-04 00:00:00 Completed [facility] Polio (IPV/OPV) 1996-02-04 00:00:00 Completed [facility] DPT/HIB 1996-02-04 00:00:00 Completed [facility] OPV 1996-02-04 00:00:00 Completed [facility] Polio (IPV/OPV) 1996-02-04 00:00:00 Completed [facility] DPT/HIB 1996-02-04 00:00:00 Completed [facility] OPV 1996-02-04 00:00:00 Completed [facility] Polio (IPV/OPV) 1996-02-04 00:00:00 Completed [facility] DPT/HIB 1996-02-04 00:00:00 Completed [facility] OPV 1996-02-04 00:00:00 Completed [facility] Polio (IPV/OPV) 1996-02-04 00:00:00 Completed [facility] DPT/HIB 1996-02-04 00:00:00 Completed [facility] OPV 1996-02-04 00:00:00 Completed [facility] Polio (IPV/OPV) 1996-02-04 00:00:00 Completed [facility] IPV 1996-02-04 00:00:00 Completed [facility] DPT/HIB 1996-02-04 00:00:00 Completed [facility] OPV 1996-02-04 00:00:00 Completed [facility] Polio (IPV/OPV) 1996-02-04 00:00:00 Completed [facility] IPV 1996-02-04 00:00:00 Completed [facility] DPT/HIB 1996-02-04 00:00:00 Completed [facility] OPV 1996-02-04 00:00:00 Completed [facility] Polio (IPV/OPV) 1996-02-04 00:00:00 Completed [facility] IPV 1996-02-04 00:00:00 Completed [facility] DPT/HIB 1996-02-04 00:00:00 Completed [facility] OPV 1996-02-04 00:00:00 Completed [facility] Polio (IPV/OPV) 1996-02-04 00:00:00 Completed [facility] IPV 1996-02-04 00:00:00 Completed [facility] DPT/HIB 1996-02-04 00:00:00 Completed [facility] OPV 1996-02-04 00:00:00 Completed [facility] Polio (IPV/OPV) 1996-02-04 00:00:00 Completed [facility] IPV 1996-02-04 00:00:00 Completed [facility] DPT/HIB 1996-02-04 00:00:00 Completed [facility] OPV 1996-02-04 00:00:00 Completed [facility] Polio (IPV/OPV) 1996-02-04 00:00:00 Completed [facility] IPV 1996-02-04 00:00:00 Completed [facility] DPT/HIB 1996-02-04 00:00:00 Completed [facility] OPV 1996-02-04 00:00:00 Completed [facility] Polio (IPV/OPV) 1996-02-04 00:00:00 Completed [facility] IPV 1996-02-04 00:00:00 Completed [facility] DPT/HIB 1996-02-04 00:00:00 Completed [facility] OPV 1996-02-04 00:00:00 Completed [facility] Polio (IPV/OPV) 1996-02-04 00:00:00 Completed [facility] IPV 1996-02-04 00:00:00 Completed [facility] DPT/HIB 1996-02-04 00:00:00 Completed [facility] OPV 1996-02-04 00:00:00 Completed [facility] Polio (IPV/OPV) 1996-02-04 00:00:00 Completed [facility] IPV 1996-02-04 00:00:00 Completed [facility] DPT/HIB 1996-02-04 00:00:00 Completed [facility] OPV 1996-02-04 00:00:00 Completed [facility] Polio (IPV/OPV) 1996-02-04 00:00:00 Completed [facility] IPV 1996-02-04 00:00:00 Completed [facility] DPT/HIB 1996-02-04 00:00:00 Completed [facility] OPV 1996-02-04 00:00:00 Completed [facility] Polio (IPV/OPV) 1996-02-04 00:00:00 Completed [facility] IPV 1996-02-04 00:00:00 Completed [facility] DPT/HIB 1996-02-04 00:00:00 Completed [facility] OPV 1996-02-04 00:00:00 Completed [facility] Polio (IPV/OPV) 1996-02-04 00:00:00 Completed [facility] IPV 1996-02-04 00:00:00 Completed [facility] DPT/HIB 1996-02-04 00:00:00 Completed [facility] OPV 1996-02-04 00:00:00 Completed [facility] Polio (IPV/OPV) 1996-02-04 00:00:00 Completed [facility] IPV 1996-02-04 00:00:00 Completed [facility] DPT/HIB 1996-02-04 00:00:00 Completed [facility] OPV 1996-02-04 00:00:00 Completed [facility] Polio (IPV/OPV) 1996-02-04 00:00:00 Completed [facility] IPV 1996-02-04 00:00:00 Completed [facility] DPT/HIB 1996-02-04 00:00:00 Completed [facility] OPV 1996-02-04 00:00:00 Completed [facility] Polio (IPV/OPV) 1996-02-04 00:00:00 Completed [facility] IPV 1996-02-04 00:00:00 Completed [facility] IPV 1996-02-04 00:00:00 Completed [facility] DPT/HIB 1996-02-04 00:00:00 Completed [facility] OPV 1996-02-04 00:00:00 Completed [facility] Polio (IPV/OPV) 1996-02-04 00:00:00 Completed [facility] IPV 1996-02-04 00:00:00 Completed [facility] DPT/HIB 1996-02-04 00:00:00 Completed [facility] OPV 1996-02-04 00:00:00 Completed [facility] Polio (IPV/OPV) 1996-02-04 00:00:00 Completed [facility] IPV 1996-02-04 00:00:00 Completed [facility] DPT/HIB 1996-02-04 00:00:00 Completed [facility] OPV 1996-02-04 00:00:00 Completed [facility] Polio (IPV/OPV) 1996-02-04 00:00:00 Completed [facility] IPV 1996-02-04 00:00:00 Completed [facility] DPT/HIB 1996-02-04 00:00:00 Completed [facility] OPV 1996-02-04 00:00:00 Completed [facility] Polio (IPV/OPV) 1996-02-04 00:00:00 Completed [facility] IPV 1996-02-04 00:00:00 Completed [facility] DPT/HIB 1996-02-04 00:00:00 Completed [facility] OPV 1996-02-04 00:00:00 Completed [facility] Polio (IPV/OPV) 1996-02-04 00:00:00 Completed [facility] IPV 1996-02-04 00:00:00 Completed [facility] DPT/HIB 1996-02-04 00:00:00 Completed OPV 1996-02-04 00:00:00 Completed Polio (IPV/OPV) 1996-02-04 00:00:00 Completed IPV 1996-02-04 00:00:00 Completed [facility] DPT/HIB 1996-02-04 00:00:00 Completed OPV 1996-02-04 00:00:00 Completed Polio (IPV/OPV) 1996-02-04 00:00:00 Completed IPV 1996-02-04 00:00:00 Completed [facility] DPT/HIB 1995 00:00:00 Completed [facility] HEP B, Adult Dosage 1995 00:00:00 Completed [facility] OPV 1995 00:00:00 Completed [facility] Hep B, Adol or Pedi Dosage 1995 00:00:00 Completed [facility] Polio (IPV/OPV) 1995 00:00:00 Completed [facility] DPT/HIB 1995 00:00:00 Completed [facility] HEP B, Adult Dosage 1995 00:00:00 Completed [facility] OPV 1995 00:00:00 Completed [facility] Hep B, Adol or Pedi Dosage 1995 00:00:00 Completed [facility] Polio (IPV/OPV) 1995 00:00:00 Completed [facility] DPT/HIB 1995 00:00:00 Completed [facility] HEP B, Adult Dosage 1995 00:00:00 Completed [facility] OPV 1995 00:00:00 Completed [facility] Hep B, Adol or Pedi Dosage 1995 00:00:00 Completed [facility] Polio (IPV/OPV) 1995 00:00:00 Completed [facility] DPT/HIB 1995 00:00:00 Completed [facility] HEP B, Adult Dosage 1995 00:00:00 Completed [facility] OPV 1995 00:00:00 Completed [facility] Hep B, Adol or Pedi Dosage 1995 00:00:00 Completed [facility] Polio (IPV/OPV) 1995 00:00:00 Completed [facility] DPT/HIB 1995 00:00:00 Completed [facility] HEP B, Adult Dosage 1995 00:00:00 Completed [facility] OPV 1995 00:00:00 Completed [facility] Hep B, Adol or Pedi Dosage 1995 00:00:00 Completed [facility] Polio (IPV/OPV) 1995 00:00:00 Completed [facility] DPT/HIB 1995 00:00:00 Completed [facility] HEP B, Adult Dosage 1995 00:00:00 Completed [facility] OPV 1995 00:00:00 Completed [facility] Hep B, Adol or Pedi Dosage 1995 00:00:00 Completed [facility] Polio (IPV/OPV) 1995 00:00:00 Completed [facility] IPV 1995 00:00:00 Completed [facility] DPT/HIB 1995 00:00:00 Completed [facility] HEP B, Adult Dosage 1995 00:00:00 Completed [facility] OPV 1995 00:00:00 Completed [facility] Hep B, Adol or Pedi Dosage 1995 00:00:00 Completed [facility] Polio (IPV/OPV) 1995 00:00:00 Completed [facility] IPV 1995 00:00:00 Completed [facility] DPT/HIB 1995 00:00:00 Completed [facility] HEP B, Adult Dosage 1995 00:00:00 Completed [facility] OPV 1995 00:00:00 Completed [facility] Hep B, Adol or Pedi Dosage 1995 00:00:00 Completed [facility] Polio (IPV/OPV) 1995 00:00:00 Completed [facility] IPV 1995 00:00:00 Completed [facility] DPT/HIB 1995 00:00:00 Completed [facility] HEP B, Adult Dosage 1995 00:00:00 Completed [facility] OPV 1995 00:00:00 Completed [facility] Hep B, Adol or Pedi Dosage 1995 00:00:00 Completed [facility] Polio (IPV/OPV) 1995 00:00:00 Completed [facility] IPV 1995 00:00:00 Completed [facility] DPT/HIB 1995 00:00:00 Completed [facility] HEP B, Adult Dosage 1995 00:00:00 Completed [facility] OPV 1995 00:00:00 Completed [facility] Hep B, Adol or Pedi Dosage 1995 00:00:00 Completed [facility] Polio (IPV/OPV) 1995 00:00:00 Completed [facility] IPV 1995 00:00:00 Completed [facility] DPT/HIB 1995 00:00:00 Completed [facility] HEP B, Adult Dosage 1995 00:00:00 Completed [facility] OPV 1995 00:00:00 Completed [facility] Hep B, Adol or Pedi Dosage 1995 00:00:00 Completed [facility] Polio (IPV/OPV) 1995 00:00:00 Completed [facility] IPV 1995 00:00:00 Completed [facility] DPT/HIB 1995 00:00:00 Completed [facility] HEP B, Adult Dosage 1995 00:00:00 Completed [facility] OPV 1995 00:00:00 Completed [facility] Hep B, Adol or Pedi Dosage 1995 00:00:00 Completed [facility] Polio (IPV/OPV) 1995 00:00:00 Completed [facility] IPV 1995 00:00:00 Completed [facility] DPT/HIB 1995 00:00:00 Completed [facility] HEP B, Adult Dosage 1995 00:00:00 Completed [facility] OPV 1995 00:00:00 Completed [facility] Hep B, Adol or Pedi Dosage 1995 00:00:00 Completed [facility] Polio (IPV/OPV) 1995 00:00:00 Completed [facility] IPV 1995 00:00:00 Completed [facility] DPT/HIB 1995 00:00:00 Completed [facility] HEP B, Adult Dosage 1995 00:00:00 Completed [facility] OPV 1995 00:00:00 Completed [facility] Hep B, Adol or Pedi Dosage 1995 00:00:00 Completed [facility] Polio (IPV/OPV) 1995 00:00:00 Completed [facility] IPV 1995 00:00:00 Completed [facility] DPT/HIB 1995 00:00:00 Completed [facility] HEP B, Adult Dosage 1995 00:00:00 Completed [facility] OPV 1995 00:00:00 Completed [facility] Hep B, Adol or Pedi Dosage 1995 00:00:00 Completed [facility] Polio (IPV/OPV) 1995 00:00:00 Completed [facility] IPV 1995 00:00:00 Completed [facility] DPT/HIB 1995 00:00:00 Completed [facility] HEP B, Adult Dosage 1995 00:00:00 Completed [facility] OPV 1995 00:00:00 Completed [facility] Hep B, Adol or Pedi Dosage 1995 00:00:00 Completed [facility] Polio (IPV/OPV) 1995 00:00:00 Completed [facility] IPV 1995 00:00:00 Completed [facility] DPT/HIB 1995 00:00:00 Completed [facility] HEP B, Adult Dosage 1995 00:00:00 Completed [facility] OPV 1995 00:00:00 Completed [facility] Hep B, Adol or Pedi Dosage 1995 00:00:00 Completed [facility] Polio (IPV/OPV) 1995 00:00:00 Completed [facility] IPV 1995 00:00:00 Completed [facility] DPT/HIB 1995 00:00:00 Completed [facility] HEP B, Adult Dosage 1995 00:00:00 Completed [facility] OPV 1995 00:00:00 Completed [facility] Hep B, Adol or Pedi Dosage 1995 00:00:00 Completed [facility] Polio (IPV/OPV) 1995 00:00:00 Completed [facility] IPV 1995 00:00:00 Completed [facility] DPT/HIB 1995 00:00:00 Completed [facility] HEP B, Adult Dosage 1995 00:00:00 Completed [facility] OPV 1995 00:00:00 Completed [facility] Hep B, Adol or Pedi Dosage 1995 00:00:00 Completed [facility] Polio (IPV/OPV) 1995 00:00:00 Completed [facility] IPV 1995 00:00:00 Completed [facility] DPT/HIB 1995 00:00:00 Completed [facility] HEP B, Adult Dosage 1995 00:00:00 Completed [facility] OPV 1995 00:00:00 Completed [facility] Hep B, Adol or Pedi Dosage 1995 00:00:00 Completed [facility] Polio (IPV/OPV) 1995 00:00:00 Completed [facility] IPV 1995 00:00:00 Completed [facility] DPT/HIB 1995 00:00:00 Completed [facility] HEP B, Adult Dosage 1995 00:00:00 Completed [facility] OPV 1995 00:00:00 Completed [facility] Hep B, Adol or Pedi Dosage 1995 00:00:00 Completed [facility] Polio (IPV/OPV) 1995 00:00:00 Completed [facility] DPT/HIB 1995 00:00:00 Completed [facility] HEP B, Adult Dosage 1995 00:00:00 Completed [facility] OPV 1995 00:00:00 Completed [facility] Hep B, Adol or Pedi Dosage 1995 00:00:00 Completed [facility] Polio (IPV/OPV) 1995 00:00:00 Completed [facility] IPV 1995 00:00:00 Completed [facility] DPT/HIB 1995 00:00:00 Completed [facility] HEP B, Adult Dosage 1995 00:00:00 Completed [facility] OPV 1995 00:00:00 Completed [facility] Hep B, Adol or Pedi Dosage 1995 00:00:00 Completed [facility] Polio (IPV/OPV) 1995 00:00:00 Completed [facility] IPV 1995 00:00:00 Completed [facility] DPT/HIB 1995 00:00:00 Completed [facility] HEP B, Adult Dosage 1995 00:00:00 Completed [facility] OPV 1995 00:00:00 Completed [facility] Hep B, Adol or Pedi Dosage 1995 00:00:00 Completed [facility] Polio (IPV/OPV) 1995 00:00:00 Completed [facility] IPV 1995 00:00:00 Completed [facility] DPT/HIB 1995 00:00:00 Completed [facility] HEP B, Adult Dosage 1995 00:00:00 Completed [facility] OPV 1995 00:00:00 Completed [facility] Hep B, Adol or Pedi Dosage 1995 00:00:00 Completed [facility] Polio (IPV/OPV) 1995 00:00:00 Completed [facility] IPV 1995 00:00:00 Completed [facility] DPT/HIB 1995 00:00:00 Completed [facility] HEP B, Adult Dosage 1995 00:00:00 Completed [facility] OPV 1995 00:00:00 Completed [facility] Hep B, Adol or Pedi Dosage 1995 00:00:00 Completed [facility] Polio (IPV/OPV) 1995 00:00:00 Completed [facility] IPV 1995 00:00:00 Completed [facility] DPT/HIB 1995 00:00:00 Completed HEP B, Adult Dosage 1995 00:00:00 Completed OPV 1995 00:00:00 Completed Hep B, Adol or Pedi Dosage 1995 00:00:00 Completed Polio (IPV/OPV) 1995 00:00:00 Completed IPV 1995 00:00:00 Completed DPT/HIB 1995 00:00:00 Completed HEP B, Adult Dosage 1995 00:00:00 Completed OPV 1995 00:00:00 Completed Hep B, Adol or Pedi Dosage 1995 00:00:00 Completed Polio (IPV/OPV) 1995 00:00:00 Completed IPV 1995 00:00:00 Completed DPT/HIB 1995 00:00:00 Completed [facility] HEP B, Adult Dosage 1995 00:00:00 Completed [facility] OPV 1995 00:00:00 Completed [facility] Hep B, Adol or Pedi Dosage 1995 00:00:00 Completed [facility] Polio (IPV/OPV) 1995 00:00:00 Completed [facility] DPT/HIB 1995 00:00:00 Completed [facility] HEP B, Adult Dosage 1995 00:00:00 Completed [facility] OPV 1995 00:00:00 Completed [facility] Hep B, Adol or Pedi Dosage 1995 00:00:00 Completed [facility] Polio (IPV/OPV) 1995 00:00:00 Completed [facility] DPT/HIB 1995 00:00:00 Completed [facility] HEP B, Adult Dosage 1995 00:00:00 Completed [facility] OPV 1995 00:00:00 Completed [facility] Hep B, Adol or Pedi Dosage 1995 00:00:00 Completed [facility] Polio (IPV/OPV) 1995 00:00:00 Completed [facility] DPT/HIB 1995 00:00:00 Completed [facility] HEP B, Adult Dosage 1995 00:00:00 Completed [facility] OPV 1995 00:00:00 Completed [facility] Hep B, Adol or Pedi Dosage 1995 00:00:00 Completed [facility] Polio (IPV/OPV) 1995 00:00:00 Completed [facility] DPT/HIB 1995 00:00:00 Completed [facility] HEP B, Adult Dosage 1995 00:00:00 Completed [facility] OPV 1995 00:00:00 Completed [facility] Hep B, Adol or Pedi Dosage 1995 00:00:00 Completed [facility] Polio (IPV/OPV) 1995 00:00:00 Completed [facility] DPT/HIB 1995 00:00:00 Completed [facility] HEP B, Adult Dosage 1995 00:00:00 Completed [facility] OPV 1995 00:00:00 Completed [facility] Hep B, Adol or Pedi Dosage 1995 00:00:00 Completed [facility] Polio (IPV/OPV) 1995 00:00:00 Completed [facility] IPV 1995 00:00:00 Completed [facility] DPT/HIB 1995 00:00:00 Completed [facility] HEP B, Adult Dosage 1995 00:00:00 Completed [facility] OPV 1995 00:00:00 Completed [facility] Hep B, Adol or Pedi Dosage 1995 00:00:00 Completed [facility] Polio (IPV/OPV) 1995 00:00:00 Completed [facility] IPV 1995 00:00:00 Completed [facility] DPT/HIB 1995 00:00:00 Completed [facility] HEP B, Adult Dosage 1995 00:00:00 Completed [facility] OPV 1995 00:00:00 Completed [facility] Hep B, Adol or Pedi Dosage 1995 00:00:00 Completed [facility] Polio (IPV/OPV) 1995 00:00:00 Completed [facility] IPV 1995 00:00:00 Completed [facility] DPT/HIB 1995 00:00:00 Completed [facility] HEP B, Adult Dosage 1995 00:00:00 Completed [facility] OPV 1995 00:00:00 Completed [facility] Hep B, Adol or Pedi Dosage 1995 00:00:00 Completed [facility] Polio (IPV/OPV) 1995 00:00:00 Completed [facility] IPV 1995 00:00:00 Completed [facility] DPT/HIB 1995 00:00:00 Completed [facility] HEP B, Adult Dosage 1995 00:00:00 Completed [facility] OPV 1995 00:00:00 Completed [facility] Hep B, Adol or Pedi Dosage 1995 00:00:00 Completed [facility] Polio (IPV/OPV) 1995 00:00:00 Completed [facility] IPV 1995 00:00:00 Completed [facility] DPT/HIB 1995 00:00:00 Completed [facility] HEP B, Adult Dosage 1995 00:00:00 Completed [facility] OPV 1995 00:00:00 Completed [facility] Hep B, Adol or Pedi Dosage 1995 00:00:00 Completed [facility] Polio (IPV/OPV) 1995 00:00:00 Completed [facility] IPV 1995 00:00:00 Completed [facility] DPT/HIB 1995 00:00:00 Completed [facility] HEP B, Adult Dosage 1995 00:00:00 Completed [facility] OPV 1995 00:00:00 Completed [facility] Hep B, Adol or Pedi Dosage 1995 00:00:00 Completed [facility] Polio (IPV/OPV) 1995 00:00:00 Completed [facility] IPV 1995 00:00:00 Completed [facility] DPT/HIB 1995 00:00:00 Completed [facility] HEP B, Adult Dosage 1995 00:00:00 Completed [facility] OPV 1995 00:00:00 Completed [facility] Hep B, Adol or Pedi Dosage 1995 00:00:00 Completed [facility] Polio (IPV/OPV) 1995 00:00:00 Completed [facility] IPV 1995 00:00:00 Completed [facility] DPT/HIB 1995 00:00:00 Completed [facility] HEP B, Adult Dosage 1995 00:00:00 Completed [facility] OPV 1995 00:00:00 Completed [facility] Hep B, Adol or Pedi Dosage 1995 00:00:00 Completed [facility] Polio (IPV/OPV) 1995 00:00:00 Completed [facility] IPV 1995 00:00:00 Completed [facility] DPT/HIB 1995 00:00:00 Completed [facility] HEP B, Adult Dosage 1995 00:00:00 Completed [facility] OPV 1995 00:00:00 Completed [facility] Hep B, Adol or Pedi Dosage 1995 00:00:00 Completed [facility] Polio (IPV/OPV) 1995 00:00:00 Completed [facility] IPV 1995 00:00:00 Completed [facility] DPT/HIB 1995 00:00:00 Completed [facility] HEP B, Adult Dosage 1995 00:00:00 Completed [facility] OPV 1995 00:00:00 Completed [facility] Hep B, Adol or Pedi Dosage 1995 00:00:00 Completed [facility] Polio (IPV/OPV) 1995 00:00:00 Completed [facility] IPV 1995 00:00:00 Completed [facility] DPT/HIB 1995 00:00:00 Completed [facility] HEP B, Adult Dosage 1995 00:00:00 Completed [facility] OPV 1995 00:00:00 Completed [facility] Hep B, Adol or Pedi Dosage 1995 00:00:00 Completed [facility] Polio (IPV/OPV) 1995 00:00:00 Completed [facility] IPV 1995 00:00:00 Completed [facility] DPT/HIB 1995 00:00:00 Completed [facility] HEP B, Adult Dosage 1995 00:00:00 Completed [facility] OPV 1995 00:00:00 Completed [facility] Hep B, Adol or Pedi Dosage 1995 00:00:00 Completed [facility] Polio (IPV/OPV) 1995 00:00:00 Completed [facility] IPV 1995 00:00:00 Completed [facility] DPT/HIB 1995 00:00:00 Completed [facility] HEP B, Adult Dosage 1995 00:00:00 Completed [facility] OPV 1995 00:00:00 Completed [facility] Hep B, Adol or Pedi Dosage 1995 00:00:00 Completed [facility] Polio (IPV/OPV) 1995 00:00:00 Completed [facility] IPV 1995 00:00:00 Completed [facility] DPT/HIB 1995 00:00:00 Completed [facility] HEP B, Adult Dosage 1995 00:00:00 Completed [facility] OPV 1995 00:00:00 Completed [facility] Hep B, Adol or Pedi Dosage 1995 00:00:00 Completed [facility] Polio (IPV/OPV) 1995 00:00:00 Completed [facility] IPV 1995 00:00:00 Completed [facility] DPT/HIB 1995 00:00:00 Completed [facility] HEP B, Adult Dosage 1995 00:00:00 Completed [facility] OPV 1995 00:00:00 Completed [facility] Hep B, Adol or Pedi Dosage 1995 00:00:00 Completed [facility] Polio (IPV/OPV) 1995 00:00:00 Completed [facility] IPV 1995 00:00:00 Completed [facility] DPT/HIB 1995 00:00:00 Completed [facility] HEP B, Adult Dosage 1995 00:00:00 Completed [facility] OPV 1995 00:00:00 Completed [facility] Hep B, Adol or Pedi Dosage 1995 00:00:00 Completed [facility] Polio (IPV/OPV) 1995 00:00:00 Completed [facility] IPV 1995 00:00:00 Completed [facility] DPT/HIB 1995 00:00:00 Completed [facility] HEP B, Adult Dosage 1995 00:00:00 Completed [facility] OPV 1995 00:00:00 Completed [facility] Hep B, Adol or Pedi Dosage 1995 00:00:00 Completed [facility] Polio (IPV/OPV) 1995 00:00:00 Completed [facility] IPV 1995 00:00:00 Completed [facility] DPT/HIB 1995 00:00:00 Completed [facility] HEP B, Adult Dosage 1995 00:00:00 Completed [facility] OPV 1995 00:00:00 Completed [facility] Hep B, Adol or Pedi Dosage 1995 00:00:00 Completed [facility] Polio (IPV/OPV) 1995 00:00:00 Completed [facility] IPV 1995 00:00:00 Completed [facility] DPT/HIB 1995 00:00:00 Completed [facility] HEP B, Adult Dosage 1995 00:00:00 Completed [facility] OPV 1995 00:00:00 Completed [facility] Hep B, Adol or Pedi Dosage 1995 00:00:00 Completed [facility] Polio (IPV/OPV) 1995 00:00:00 Completed [facility] IPV 1995 00:00:00 Completed [facility] DPT/HIB 1995 00:00:00 Completed HEP B, Adult Dosage 1995 00:00:00 Completed OPV 1995 00:00:00 Completed Hep B, Adol or Pedi Dosage 1995 00:00:00 Completed Polio (IPV/OPV) 1995 00:00:00 Completed IPV 1995 00:00:00 Completed DPT/HIB 1995 00:00:00 Completed HEP B, Adult Dosage 1995 00:00:00 Completed OPV 1995 00:00:00 Completed Hep B, Adol or Pedi Dosage 1995 00:00:00 Completed Polio (IPV/OPV) 1995 00:00:00 Completed IPV 1995 00:00:00 Completed [facility] Influenza B Unknown Completed [facility] Varicella (varivax)(chicken pox) Unknown Completed [facility] DTAP Unknown Completed [facility] DPT/HIB Unknown Completed [facility] HEP B, Adult Dosage Unknown Completed [facility] Heamophilus Influenza B Unknown Completed [facility] Influenza Virus Vaccine Unknown Completed [facility] IPV Unknown Completed [facility] MMR Unknown Completed [facility] OPV Unknown Completed [facility] Varicella (varivax)(chicken pox) Unknown Completed [facility] Hep B, Adol or Pedi Dosage Unknown Completed [facility] Influenza Virus Vaccine (3+ yrs) Unknown Completed [facility] Polio (IPV/OPV) Unknown Com[facility] DTAP Unknown Completed [facility] DPT/HIB Unknown Completed [facility] HEP B, Adult Dosage Unknown Completed [facility] Heamophilus Influenza B Unknown Completed [facility] Influenza Virus Vaccine Unknown Completed [facility] IPV Unknown Completed [facility] MMR Unknown Completed [facility] OPV Unknown Completed [facility] Varicella (varivax)(chicken pox) Unknown Completed [facility] Hep B, Adol or Pedi Dosage Unknown Completed [facility] Influenza Virus Vaccine (3+ yrs) Unknown Completed [facility] Polio (IPV/OPV) Unknown Completed [facility] DTAP Unknown Completed [facility] DPT/HIB Unknown Completed [facility] HEP B, Adult Dosage Unknown Completed [facility] Heamophilus Influenza B Unknown Completed [facility] Influenza Virus Vaccine Unknown Completed [facility] IPV Unknown Completed [facility] MMR Unknown Completed [facility] OPV Unknown Completed [facility] Varicella (varivax)(chicken pox) Unknown Completed [facility] Hep B, Adol or Pedi Dosage Unknown Completed [facility] Influenza Virus Vaccine (3+ yrs) Unknown Completed [facility] Polio (IPV/OPV) Unknown Com[facility] DTAP Unknown Completed [facility] DPT/HIB Unknown Completed [facility] HEP B, Adult Dosage Unknown Completed [facility] Heamophilus Influenza B Unknown Completed [facility] Influenza Virus Vaccine Unknown Completed [facility] IPV Unknown Completed [facility] MMR Unknown Completed [facility] OPV Unknown Completed [facility] Varicella (varivax)(chicken pox) Unknown Completed [facility] Hep B, Adol or Pedi Dosage Unknown Completed [facility] Influenza Virus Vaccine (3+ yrs) Unknown Completed [facility] Polio (IPV/OPV) Unknown Com[facility] DTAP Unknown Completed [facility] DPT/HIB Unknown Completed [facility] HEP B, Adult Dosage Unknown Completed [facility] Heamophilus Influenza B Unknown Completed [facility] Influenza Virus Vaccine Unknown Completed [facility] IPV Unknown Completed [facility] MMR Unknown Completed [facility] OPV Unknown Completed [facility] Varicella (varivax)(chicken pox) Unknown Completed [facility] Hep B, Adol or Pedi Dosage Unknown Completed [facility] Influenza Virus Vaccine (3+ yrs) Unknown Completed [facility] Polio (IPV/OPV) Unknown Completed [facility] DTAP Unknown Completed [facility] DPT/HIB Unknown Completed [facility] HEP B, Adult Dosage Unknown Completed [facility] Heamophilus Influenza B Unknown Completed [facility] Influenza Virus Vaccine Unknown Completed [facility] IPV Unknown Completed [facility] MMR Unknown Completed [facility] OPV Unknown Completed [facility] Varicella (varivax)(chicken pox) Unknown Completed [facility] Hep B, Adol or Pedi Dosage Unknown Completed [facility] Influenza Virus Vaccine (3+ yrs) Unknown Completed [facility] Polio (IPV/OPV) Unknown Completed [facility] DTAP Unknown Completed [facility] DPT/HIB Unknown Completed [facility] HEP B, Adult Dosage Unknown Completed [facility] Heamophilus Influenza B Unknown Completed [facility] Influenza Virus Vaccine Unknown Completed [facility] IPV Unknown Completed [facility] MMR Unknown Completed [facility] OPV Unknown Completed [facility] Varicella (varivax)(chicken pox) Unknown Completed [facility] Hep B, Adol or Pedi Dosage Unknown Completed [facility] Influenza Virus Vaccine (3+ yrs) Unknown Completed [facility] Polio (IPV/OPV) Unknown Com[facility] DTAP Unknown Completed [facility] DPT/HIB Unknown Completed [facility] HEP B, Adult Dosage Unknown Completed [facility] Heamophilus Influenza B Unknown Completed [facility] Influenza Virus Vaccine Unknown Completed [facility] IPV Unknown Completed [facility] MMR Unknown Completed [facility] OPV Unknown Completed [facility] Varicella (varivax)(chicken pox) Unknown Completed [facility] Hep B, Adol or Pedi Dosage Unknown Completed [facility] Influenza Virus Vaccine (3+ yrs) Unknown Completed [facility] Polio (IPV/OPV) Unknown Completed [facility] DTAP Unknown Completed [facility] DPT/HIB Unknown Completed [facility] HEP B, Adult Dosage Unknown Completed [facility] Heamophilus Influenza B Unknown Completed [facility] Influenza Virus Vaccine Unknown Completed [facility] IPV Unknown Completed [facility] MMR Unknown Completed [facility] OPV Unknown Completed [facility] Varicella (varivax)(chicken pox) Unknown Completed [facility] Hep B, Adol or Pedi Dosage Unknown Completed [facility] Influenza Virus Vaccine (3+ yrs) Unknown Completed [facility] Polio (IPV/OPV) Unknown Completed [facility] DTAP Unknown Completed [facility] DPT/HIB Unknown Completed [facility] HEP B, Adult Dosage Unknown Completed [facility] Heamophilus Influenza B Unknown Completed [facility] Influenza Virus Vaccine Unknown Completed [facility] IPV Unknown Completed [facility] MMR Unknown Completed [facility] OPV Unknown Completed [facility] Varicella (varivax)(chicken pox) Unknown Completed [facility] Hep B, Adol or Pedi Dosage Unknown Completed [facility] Influenza Virus Vaccine (3+ yrs) Unknown Completed [facility] Polio (IPV/OPV) Unknown Com[facility] DTAP Unknown Completed [facility] DPT/HIB Unknown Completed [facility] HEP B, Adult Dosage Unknown Completed [facility] Heamophilus Influenza B Unknown Completed [facility] Influenza Virus Vaccine Unknown Completed [facility] IPV Unknown Completed [facility] MMR Unknown Completed [facility] OPV Unknown Completed [facility] Varicella (varivax)(chicken pox) Unknown Completed [facility] Hep B, Adol or Pedi Dosage Unknown Completed [facility] Influenza Virus Vaccine (3+ yrs) Unknown Completed [facility] Polio (IPV/OPV) Unknown Completed [facility] DTAP Unknown Completed [facility] DPT/HIB Unknown Completed [facility] HEP B, Adult Dosage Unknown Completed [facility] Heamophilus Influenza B Unknown Completed [facility] Influenza Virus Vaccine Unknown Completed [facility] IPV Unknown Completed [facility] MMR Unknown Completed [facility] OPV Unknown Completed [facility] Varicella (varivax)(chicken pox) Unknown Completed [facility] Hep B, Adol or Pedi Dosage Unknown Completed [facility] Influenza Virus Vaccine (3+ yrs) Unknown Completed [facility] Polio (IPV/OPV) Unknown Completed [facility] DTAP Unknown Completed [facility] DPT/HIB Unknown Completed [facility] HEP B, Adult Dosage Unknown Completed [facility] Heamophilus Influenza B Unknown Completed [facility] Influenza Virus Vaccine Unknown Completed [facility] IPV Unknown Completed [facility] MMR Unknown Completed [facility] OPV Unknown Completed [facility] Varicella (varivax)(chicken pox) Unknown Completed [facility] Hep B, Adol or Pedi Dosage Unknown Completed [facility] Influenza Virus Vaccine (3+ yrs) Unknown Completed [facility] Polio (IPV/OPV) Unknown Completed [facility] DTAP Unknown Completed [facility] DPT/HIB Unknown Completed [facility] HEP B, Adult Dosage Unknown Completed [facility] Heamophilus Influenza B Unknown Completed [facility] Influenza Virus Vaccine Unknown Completed [facility] IPV Unknown Completed [facility] MMR Unknown Completed [facility] OPV Unknown Completed [facility] Varicella (varivax)(chicken pox) Unknown Completed [facility] Hep B, Adol or Pedi Dosage Unknown Completed [facility] Influenza Virus Vaccine (3+ yrs) Unknown Completed [facility] Polio (IPV/OPV) Unknown Completed [facility] DTAP Unknown Completed [facility] DPT/HIB Unknown Completed [facility] HEP B, Adult Dosage Unknown Completed [facility] Heamophilus Influenza B Unknown Completed [facility] Influenza Virus Vaccine Unknown Completed [facility] IPV Unknown Completed [facility] MMR Unknown Completed [facility] OPV Unknown Completed [facility] Varicella (varivax)(chicken pox) Unknown Completed [facility] Hep B, Adol or Pedi Dosage Unknown Completed [facility] Influenza Virus Vaccine (3+ yrs) Unknown Completed [facility] Polio (IPV/OPV) Unknown Completed [facility] DTAP Unknown Completed [facility] DPT/HIB Unknown Completed [facility] HEP B, Adult Dosage Unknown Completed [facility] Heamophilus Influenza B Unknown Completed [facility] Influenza Virus Vaccine Unknown Completed [facility] IPV Unknown Completed [facility] MMR Unknown Completed [facility] OPV Unknown Completed [facility] Varicella (varivax)(chicken pox) Unknown Completed [facility] Hep B, Adol or Pedi Dosage Unknown Completed [facility] Influenza Virus Vaccine (3+ yrs) Unknown Completed [facility] Polio (IPV/OPV) Unknown Completed [facility] DTAP Unknown Completed [facility] DPT/HIB Unknown Completed [facility] HEP B, Adult Dosage Unknown Completed [facility] Heamophilus Influenza B Unknown Completed [facility] Influenza Virus Vaccine Unknown Completed [facility] IPV Unknown Completed [facility] MMR Unknown Completed [facility] OPV Unknown Completed [facility] Varicella (varivax)(chicken pox) Unknown Completed [facility] Hep B, Adol or Pedi Dosage Unknown Completed [facility] Influenza Virus Vaccine (3+ yrs) Unknown Completed [facility] Polio (IPV/OPV) Unknown Completed [facility] Heamophilus Influenza B Unknown Completed [facility] Varicella (varivax)(chicken pox) Unknown Completed [facility] DTAP Unknown Completed [facility] DPT/HIB Unknown Completed [facility] HEP B, Adult Dosage Unknown Completed [facility] Influenza Virus Vaccine Unknown Completed [facility] IPV Unknown Completed [facility] MMR Unknown Completed [facility] OPV Unknown Completed [facility] Hep B, Adol or Pedi Dosage Unknown Completed [facility] Influenza Virus Vaccine (3+ yrs) Unknown Completed [facility] Polio (IPV/OPV) Unknown Completed [facility] DTAP Unknown Completed [facility] DPT/HIB Unknown Completed [facility] HEP B, Adult Dosage Unknown Completed [facility] Heamophilus Influenza B Unknown Completed [facility] Influenza Virus Vaccine Unknown Completed [facility] IPV Unknown Completed [facility] MMR Unknown Completed [facility] OPV Unknown Completed [facility] Varicella (varivax)(chicken pox) Unknown Completed [facility] Hep B, Adol or Pedi Dosage Unknown Completed [facility] Influenza Virus Vaccine (3+ yrs) Unknown Completed [facility] Polio (IPV/OPV) Unknown Completed [facility] DTAP Unknown Completed [facility] DPT/HIB Unknown Completed [facility] HEP B, Adult Dosage Unknown Completed [facility] Heamophilus Influenza B Unknown Completed [facility] Influenza Virus Vaccine Unknown Completed [facility] IPV Unknown Completed [facility] MMR Unknown Completed [facility] OPV Unknown Completed [facility] Varicella (varivax)(chicken pox) Unknown Completed [facility] Hep B, Adol or Pedi Dosage Unknown Completed [facility] Influenza Virus Vaccine (3+ yrs) Unknown Completed [facility] Polio (IPV/OPV) Unknown Completed [facility] DTAP Unknown Completed [facility] DPT/HIB Unknown Completed [facility] HEP B, Adult Dosage Unknown Completed [facility] Heamophilus Influenza B Unknown Completed [facility] Influenza Virus Vaccine Unknown Completed [facility] IPV Unknown Completed [facility] MMR Unknown Completed [facility] OPV Unknown Completed [facility] Varicella (varivax)(chicken pox) Unknown Completed [facility] Hep B, Adol or Pedi Dosage Unknown Completed [facility] Influenza Virus Vaccine (3+ yrs) Unknown Completed [facility] Polio (IPV/OPV) Unknown Completed [facility] DTAP Unknown Completed [facility] DPT/HIB Unknown Completed [facility] HEP B, Adult Dosage Unknown Completed [facility] Heamophilus Influenza B Unknown Completed [facility] Influenza Virus Vaccine Unknown Completed [facility] IPV Unknown Com[facility] [facility] Com[facility] OPV Unknown Completed [facility] Varicella (varivax)(chicken pox) Unknown Completed [facility] Hep B, Adol or Pedi Dosage Unknown Completed [facility] Influenza Virus Vaccine (3+ yrs) Unknown Completed [facility] Polio (IPV/OPV) Unknown Completed [facility] DTAP Unknown Completed [facility] DPT/HIB Unknown Completed [facility] HEP B, Adult Dosage Unknown Completed [facility] Heamophilus Influenza B Unknown Completed [facility] Influenza Virus Vaccine Unknown Completed [facility] IPV Unknown Completed [facility] MMR Unknown Completed [facility] OPV Unknown Completed [facility] Varicella (varivax)(chicken pox) Unknown Completed [facility] Hep B, Adol or Pedi Dosage Unknown Completed [facility] Influenza Virus Vaccine (3+ yrs) Unknown Completed [facility] Polio (IPV/OPV) Unknown Completed [facility] Heamophilus Influenza B Unknown Completed [facility] Varicella (varivax)(chicken pox) Unknown Completed [facility] DTAP Unknown Completed [facility] DPT/HIB Unknown Completed [facility] HEP B, Adult Dosage Unknown Completed [facility] Influenza Virus Vaccine Unknown Completed [facility] IPV Unknown Completed [facility] MMR Unknown Completed [facility] OPV Unknown Completed [facility] Hep B, Adol or Pedi Dosage Unknown Completed [facility] Influenza Virus Vaccine (3+ yrs) Unknown Completed [facility] Polio (IPV/OPV) Unknown Com[facility] DTAP Unknown Completed [facility] DPT/HIB Unknown Completed [facility] HEP B, Adult Dosage Unknown Completed [facility] Heamophilus Influenza B Unknown Completed [facility] Influenza Virus Vaccine Unknown Completed [facility] IPV Unknown Completed [facility] MMR Unknown Completed [facility] OPV Unknown Completed [facility] Varicella (varivax)(chicken pox) Unknown Completed [facility] Hep B, Adol or Pedi Dosage Unknown Completed [facility] Influenza Virus Vaccine (3+ yrs) Unknown Completed [facility] Polio (IPV/OPV) Unknown Com[facility] DTAP Unknown Completed [facility] DPT/HIB Unknown Completed [facility] HEP B, Adult Dosage Unknown Completed [facility] Heamophilus Influenza B Unknown Completed [facility] Influenza Virus Vaccine Unknown Completed [facility] IPV Unknown Completed [facility] MMR Unknown Completed [facility] OPV Unknown Completed [facility] Varicella (varivax)(chicken pox) Unknown Completed [facility] Hep B, Adol or Pedi Dosage Unknown Completed [facility] Influenza Virus Vaccine (3+ yrs) Unknown Completed [facility] Polio (IPV/OPV) Unknown Completed [facility] DTAP Unknown Completed [facility] DPT/HIB Unknown Completed [facility] HEP B, Adult Dosage Unknown Completed [facility] Heamophilus Influenza B Unknown Completed [facility] Influenza Virus Vaccine Unknown Completed [facility] IPV Unknown Completed [facility] MMR Unknown Completed [facility] OPV Unknown Completed [facility] Varicella (varivax)(chicken pox) Unknown Completed [facility] Hep B, Adol or Pedi Dosage Unknown Completed [facility] Influenza Virus Vaccine (3+ yrs) Unknown Completed [facility] Polio (IPV/OPV) Unknown Com[facility] DTAP Unknown Completed [facility] DPT/HIB Unknown Completed [facility] HEP B, Adult Dosage Unknown Completed [facility] Heamophilus Influenza B Unknown Completed [facility] Influenza Virus Vaccine Unknown Completed [facility] IPV Unknown Completed [facility] MMR Unknown Completed [facility] OPV Unknown Completed [facility] Varicella (varivax)(chicken pox) Unknown Completed [facility] Hep B, Adol or Pedi Dosage Unknown Completed [facility] Influenza Virus Vaccine (3+ yrs) Unknown Completed [facility] Polio (IPV/OPV) Unknown Completed [facility] Heamophilus Influenza B Unknown Completed [facility] Varicella (varivax)(chicken pox) Unknown Completed [facility] DTAP Unknown Completed [facility] DPT/HIB Unknown Completed [facility] HEP B, Adult Dosage Unknown Completed [facility] Influenza Virus Vaccine Unknown Completed [facility] IPV Unknown Completed [facility] MMR Unknown Completed [facility] OPV Unknown Completed [facility] Hep B, Adol or Pedi Dosage Unknown Completed [facility] Influenza Virus Vaccine (3+ yrs) Unknown Completed [facility] Polio (IPV/OPV) Unknown Completed [facility] DTAP Unknown Completed [facility] DPT/HIB Unknown Completed [facility] HEP B, Adult Dosage Unknown Completed [facility] Heamophilus Influenza B Unknown Completed [facility] Influenza Virus Vaccine Unknown Completed [facility] IPV Unknown Completed [facility] MMR Unknown Completed [facility] OPV Unknown Completed [facility] Varicella (varivax)(chicken pox) Unknown Completed [facility] Hep B, Adol or Pedi Dosage Unknown Completed [facility] Influenza Virus Vaccine (3+ yrs) Unknown Completed [facility] Polio (IPV/OPV) Unknown Completed [facility] DTAP Unknown Completed [facility] DPT/HIB Unknown Completed [facility] HEP B, Adult Dosage Unknown Completed [facility] Heamophilus Influenza B Unknown Completed [facility] Influenza Virus Vaccine Unknown Completed [facility] IPV Unknown Completed [facility] MMR Unknown Completed [facility] OPV Unknown Completed [facility] Varicella (varivax)(chicken pox) Unknown Completed [facility] Hep B, Adol or Pedi Dosage Unknown Completed [facility] Influenza Virus Vaccine (3+ yrs) Unknown Completed [facility] Polio (IPV/OPV) Unknown Com[facility] DTAP Unknown Completed [facility] DPT/HIB Unknown Completed [facility] HEP B, Adult Dosage Unknown Completed [facility] Heamophilus Influenza B Unknown Completed [facility] Influenza Virus Vaccine Unknown Completed [facility] IPV Unknown Completed [facility] MMR Unknown Completed [facility] OPV Unknown Completed [facility] Varicella (varivax)(chicken pox) Unknown Completed [facility] Hep B, Adol or Pedi Dosage Unknown Completed [facility] Influenza Virus Vaccine (3+ yrs) Unknown Completed [facility] Polio (IPV/OPV) Unknown Completed [facility] DTAP Unknown Completed [facility] DPT/HIB Unknown Completed [facility] HEP B, Adult Dosage Unknown Completed [facility] Heamophilus Influenza B Unknown Completed [facility] Influenza Virus Vaccine Unknown Completed [facility] IPV Unknown Completed [facility] MMR Unknown Completed [facility] OPV Unknown Completed [facility] Varicella (varivax)(chicken pox) Unknown Completed [facility] Hep B, Adol or Pedi Dosage Unknown Completed [facility] Influenza Virus Vaccine (3+ yrs) Unknown Completed [facility] Polio (IPV/OPV) Unknown Completed [facility] DTAP Unknown Completed [facility] DPT/HIB Unknown Completed [facility] HEP B, Adult Dosage Unknown Completed [facility] Heamophilus Influenza B Unknown Completed [facility] Influenza Virus Vaccine Unknown Completed [facility] IPV Unknown Completed [facility] MMR Unknown Completed [facility] OPV Unknown Completed [facility] Varicella (varivax)(chicken pox) Unknown Completed [facility] Hep B, Adol or Pedi Dosage Unknown Completed [facility] Influenza Virus Vaccine (3+ yrs) Unknown Completed [facility] Polio (IPV/OPV) Unknown Com[facility] DTAP Unknown Completed [facility] DPT/HIB Unknown Completed [facility] HEP B, Adult Dosage Unknown Completed [facility] Heamophilus Influenza B Unknown Completed [facility] Influenza Virus Vaccine Unknown Completed [facility] IPV Unknown Completed [facility] MMR Unknown Completed [facility] OPV Unknown Completed [facility] Varicella (varivax)(chicken pox) Unknown Completed [facility] Hep B, Adol or Pedi Dosage Unknown Completed [facility] Influenza Virus Vaccine (3+ yrs) Unknown Completed [facility] Polio (IPV/OPV) Unknown Completed [facility] DTAP Unknown Completed [facility] DPT/HIB Unknown Completed [facility] HEP B, Adult Dosage Unknown Completed [facility] Heamophilus Influenza B Unknown Completed [facility] Influenza Virus Vaccine Unknown Completed [facility] IPV Unknown Completed [facility] MMR Unknown Completed [facility] OPV Unknown Completed [facility] Varicella (varivax)(chicken pox) Unknown Completed [facility] Hep B, Adol or Pedi Dosage Unknown Completed [facility] Influenza Virus Vaccine (3+ yrs) Unknown Completed [facility] Polio (IPV/OPV) Unknown Completed [facility] DTAP Unknown Completed [facility] DPT/HIB Unknown Completed [facility] HEP B, Adult Dosage Unknown Completed [facility] Heamophilus Influenza B Unknown Completed [facility] Influenza Virus Vaccine Unknown Completed [facility] IPV Unknown Completed [facility] MMR Unknown Completed [facility] OPV Unknown Completed [facility] Varicella (varivax)(chicken pox) Unknown Completed [facility] Hep B, Adol or Pedi Dosage Unknown Completed [facility] Influenza Virus Vaccine (3+ yrs) Unknown Completed [facility] Polio (IPV/OPV) Unknown Completed [facility] DTAP Unknown Completed [facility] DPT/HIB Unknown Completed [facility] HEP B, Adult Dosage Unknown Completed [facility] Heamophilus Influenza B Unknown Completed [facility] Influenza Virus Vaccine Unknown Completed [facility] IPV Unknown Completed [facility] MMR Unknown Completed [facility] OPV Unknown Completed [facility] Varicella (varivax)(chicken pox) Unknown Completed [facility] Hep B, Adol or Pedi Dosage Unknown Completed [facility] Influenza Virus Vaccine (3+ yrs) Unknown Completed [facility] Polio (IPV/OPV) Unknown Com[facility] DTAP Unknown Completed [facility] DPT/HIB Unknown Completed [facility] HEP B, Adult Dosage Unknown Completed [facility] Heamophilus Influenza B Unknown Completed [facility] Influenza Virus Vaccine Unknown Completed [facility] IPV Unknown Completed [facility] MMR Unknown Completed [facility] OPV Unknown Completed [facility] Varicella (varivax)(chicken pox) Unknown Completed [facility] Hep B, Adol or Pedi Dosage Unknown Completed [facility] Influenza Virus Vaccine (3+ yrs) Unknown Completed [facility] Polio (IPV/OPV) Unknown Completed [facility] DTAP Unknown Completed [facility] DPT/HIB Unknown Completed [facility] HEP B, Adult Dosage Unknown Completed [facility] Heamophilus Influenza B Unknown Completed [facility] Influenza Virus Vaccine Unknown Completed [facility] IPV Unknown Completed [facility] MMR Unknown Completed [facility] OPV Unknown Completed [facility] Varicella (varivax)(chicken pox) Unknown Completed [facility] Hep B, Adol or Pedi Dosage Unknown Completed [facility] Influenza Virus Vaccine (3+ yrs) Unknown Completed [facility] Polio (IPV/OPV) Unknown Completed [facility] DTAP Unknown Completed [facility] DPT/HIB Unknown Completed [facility] HEP B, Adult Dosage Unknown Completed [facility] Heamophilus Influenza B Unknown Completed [facility] Influenza Virus Vaccine Unknown Completed [facility] IPV Unknown Completed [facility] MMR Unknown Completed [facility] OPV Unknown Completed [facility] Varicella (varivax)(chicken pox) Unknown Completed [facility] Hep B, Adol or Pedi Dosage Unknown Completed [facility] Influenza Virus Vaccine (3+ yrs) Unknown Completed [facility] Polio (IPV/OPV) Unknown Completed [facility] DTAP Unknown Completed [facility] DPT/HIB Unknown Completed [facility] HEP B, Adult Dosage Unknown Completed [facility] Heamophilus Influenza B Unknown Completed [facility] Influenza Virus Vaccine Unknown Completed [facility] IPV Unknown Completed [facility] MMR Unknown Completed [facility] OPV Unknown Completed [facility] Varicella (varivax)(chicken pox) Unknown Completed [facility] Hep B, Adol or Pedi Dosage Unknown Completed [facility] Influenza Virus Vaccine (3+ yrs) Unknown Completed [facility] Polio (IPV/OPV) Unknown Completed [facility] DTAP Unknown Completed [facility] DPT/HIB Unknown Completed [facility] HEP B, Adult Dosage Unknown Completed [facility] Heamophilus Influenza B Unknown Completed [facility] Influenza Virus Vaccine Unknown Completed [facility] IPV Unknown Completed [facility] MMR Unknown Completed [facility] OPV Unknown Completed [facility] Varicella (varivax)(chicken pox) Unknown Completed [facility] Hep B, Adol or Pedi Dosage Unknown Completed [facility] Influenza Virus Vaccine (3+ yrs) Unknown Completed [facility] Polio (IPV/OPV) Unknown Completed [facility] DTAP Unknown Completed [facility] DPT/HIB Unknown Completed [facility] HEP B, Adult Dosage Unknown Completed [facility] Heamophilus Influenza B Unknown Completed [facility] Influenza Virus Vaccine Unknown Completed [facility] IPV Unknown Completed [facility] MMR Unknown Completed [facility] OPV Unknown Completed [facility] Varicella (varivax)(chicken pox) Unknown Completed [facility] Hep B, Adol or Pedi Dosage Unknown Completed [facility] Influenza Virus Vaccine (3+ yrs) Unknown Completed [facility] Polio (IPV/OPV) Unknown Completed [facility] DTAP Unknown Completed [facility] DPT/HIB Unknown Completed [facility] HEP B, Adult Dosage Unknown Completed [facility] Heamophilus Influenza B Unknown Completed [facility] Influenza Virus Vaccine Unknown Completed [facility] IPV Unknown Completed [facility] MMR Unknown Completed [facility] OPV Unknown Completed [facility] Varicella (varivax)(chicken pox) Unknown Completed [facility] Hep B, Adol or Pedi Dosage Unknown Completed [facility] Influenza Virus Vaccine (3+ yrs) Unknown Completed [facility] Polio (IPV/OPV) Unknown Completed [facility] DTAP Unknown Completed [facility] DPT/HIB Unknown Completed [facility] HEP B, Adult Dosage Unknown Completed [facility] Heamophilus Influenza B Unknown Completed [facility] Influenza Virus Vaccine Unknown Completed [facility] IPV Unknown Completed [facility] MMR Unknown Completed [facility] OPV Unknown Completed [facility] Varicella (varivax)(chicken pox) Unknown Completed [facility] Hep B, Adol or Pedi Dosage Unknown Completed [facility] Influenza Virus Vaccine (3+ yrs) Unknown Completed [facility] Polio (IPV/OPV) Unknown Completed [facility] DTAP Unknown Completed [facility] DPT/HIB Unknown Completed [facility] HEP B, Adult Dosage Unknown Completed [facility] Heamophilus Influenza B Unknown Completed [facility] Influenza Virus Vaccine Unknown Completed [facility] IPV Unknown Completed [facility] MMR Unknown Completed [facility] OPV Unknown Completed [facility] Varicella (varivax)(chicken pox) Unknown Completed [facility] Hep B, Adol or Pedi Dosage Unknown Completed [facility] Influenza Virus Vaccine (3+ yrs) Unknown Completed [facility] Polio (IPV/OPV) Unknown Completed [facility] DTAP Unknown Completed [facility] DPT/HIB Unknown Completed [facility] HEP B, Adult Dosage Unknown Completed [facility] Heamophilus Influenza B Unknown Completed [facility] Influenza Virus Vaccine Unknown Completed [facility] IPV Unknown Completed [facility] MMR Unknown Completed [facility] OPV Unknown Completed [facility] Varicella (varivax)(chicken pox) Unknown Completed [facility] Hep B, Adol or Pedi Dosage Unknown Completed [facility] Influenza Virus Vaccine (3+ yrs) Unknown Completed [facility] Polio (IPV/OPV) Unknown Completed [facility] DTAP Unknown Completed [facility] DPT/HIB Unknown Completed [facility] HEP B, Adult Dosage Unknown Completed [facility] Heamophilus Influenza B Unknown Completed [facility] Influenza Virus Vaccine Unknown Completed [facility] IPV Unknown Completed [facility] MMR Unknown Completed [facility] OPV Unknown Completed [facility] Varicella (varivax)(chicken pox) Unknown Completed [facility] Hep B, Adol or Pedi Dosage Unknown Completed [facility] Influenza Virus Vaccine (3+ yrs) Unknown Completed [facility] Polio (IPV/OPV) Unknown Completed [facility] Vital Signs Vital Name Observation Time Observation Value Comments S ource Systolic blood pressure 2024-05-30 18:17:00 147 mm[Hg] [facility] Diastolic blood pressure 2024-05-30 18:17:00 95 mm[Hg] [facility] Heart rate 2024-05-30 18:17:00 69 /min [facility] Oxygen saturation in Arterial blood by Pulse oximetry 2024-05-30 18:17:00 98 /min [facility] Body height 2024-05-30 18:13:00 121.9 cm pt stated this to be an estimated height. pt chairbound [facility] Body weight 2024-05-30 18:13:00 45.36 kg pt stated this to be an estimated weight. pt chairbound [facility] BMI 2024-05-30 18:13:00 30.52 kg/m2 [facility] Systolic blood pressure 2024-05-21 16:06:00 133 mm[Hg] [facility] Diastolic blood pressure 2024-05-21 16:06:00 87 mm[Hg] [facility] Heart rate 2024-05-21 16:04:00 91 /min [facility] Body temperature 2024-05-21 16:04:00 36.89 Anh [facility] Respiratory rate 2024-05-21 16:04:00 18 /min [facility] Body height 2024-05-21 16:04:00 121.9 cm [facility] Oxygen saturation in Arterial blood by Pulse oximetry 2024-05-21 16:04:00 97 /min [facility] Systolic blood pressure 2024-05-02 01:00:00 153 mm[Hg] [facility] Diastolic blood pressure 2024-05-02 01:00:00 103 mm[Hg] [facility] Heart rate 2024-05-02 01:00:00 87 /min [facility] Body temperature 2024-05-02 01:00:00 36.89 Anh [facility] Respiratory rate 2024-05-02 01:00:00 20 /min [facility] Oxygen saturation in Arterial blood by Pulse oximetry 2024-05-02 01:00:00 97 /min [facility] Body height 2024-05-01 19:52:00 121.9 cm [facility] Body weight 2024-05-01 19:52:00 45.36 kg [facility] BMI 2024-05-01 19:52:00 30.52 kg/m2 [facility] Systolic blood pressure 2024-05-01 18:30:00 141 mm[Hg] [facility] Diastolic blood pressure 2024-05-01 18:30:00 89 mm[Hg] [facility] [facility] Heart rate 2024-05-01 18:30:00 65 /min [facility] Body temperature 2024-05-01 18:30:00 37.06 Anh [facility] Oxygen saturation in Arterial blood by Pulse oximetry 2024-05-01 18:30:00 97 /min [facility] Respiratory rate 2024-05-01 17:33:39 18 /min [facility] Body height 2024-05-01 15:28:00 121.9 cm [facility] Body weight 2024-05-01 15:28:00 45.36 kg [facility] BMI 2024-05-01 15:28:00 30.52 kg/m2 [facility] Systolic blood pressure 2024-04-08 20:23:00 189 mm[Hg] [facility] Diastolic blood pressure 2024-04-08 20:23:00 122 mm[Hg] [facility] Heart rate 2024-04-08 20:23:00 99 /min [facility] Oxygen saturation in Arterial blood by Pulse oximetry 2024-04-08 20:23:00 100 /min [facility] Respiratory rate 2024-04-08 20:12:00 16 /min [facility] Body height 2024-04-08 20:12:00 121.9 cm [facility] Systolic blood pressure 2024-04-08 19:21:00 161 mm[Hg] [facility] Diastolic blood pressure 2024-04-08 19:21:00 102 mm[Hg] [facility] Heart rate 2024-04-08 18:38:00 103 /min [facility] Body temperature 2024-04-08 18:38:00 36.78 Anh [facility] Respiratory rate 2024-04-08 18:38:00 18 /min [facility] Body height 2024-04-08 18:38:00 121.9 cm [facility] Oxygen saturation in Arterial blood by Pulse oximetry 2024-04-08 18:38:00 97 /min [facility] Systolic blood pressure 2024-01-08 16:22:00 120 mm[Hg] home log [facility] Diastolic blood pressure 2024-01-08 16:22:00 80 mm[Hg] home log [facility] Heart rate 2024-01-08 16:03:00 85 /min [facility] Body temperature 2024-01-08 16:03:00 36.39 Anh [facility] Respiratory rate 2024-01-08 16:03:00 18 /min [facility] Body height 2024-01-08 16:03:00 121.9 cm [facility] Oxygen saturation in Arterial blood by Pulse oximetry 2024-01-08 16:03:00 97 /min [facility] Systolic blood pressure 2023-10-09 15:58:00 125 mm[Hg] [facility] Diastolic blood pressure 2023-10-09 15:58:00 82 mm[Hg] [facility] Heart rate 2023-10-09 15:57:00 88 /min [facility] Body temperature 2023-10-09 15:57:00 36.94 Anh [facility] Oxygen saturation in Arterial blood by Pulse oximetry 2023-10-09 15:57:00 98 /min [facility] Systolic blood pressure 2023-05-23 17:53:00 147 mm[Hg] [facility] Diastolic blood pressure 2023-05-23 17:53:00 98 mm[Hg] [facility] Heart rate 2023-05-23 17:53:00 73 /min [facility] Body temperature 2023-05-23 17:53:00 36.61 Anh [facility] Respiratory rate 2023-05-23 17:53:00 18 /min [facility] Oxygen saturation in Arterial blood by Pulse oximetry 2023-05-23 17:53:00 99 /min [facility] Systolic blood pressure 2023-04-13 18:50:00 140 mm[Hg] [facility] Diastolic blood pressure 2023-04-13 18:50:00 83 mm[Hg] [facility] Heart rate 2023-04-13 18:50:00 54 /min [facility] Body height 2023-04-13 18:50:00 121.9 cm [facility] Body weight 2023-04-13 18:50:00 44.906 kg [facility] BMI 2023-04-13 18:50:00 30.21 kg/m2 [facility] Oxygen saturation in Arterial blood by Pulse oximetry 2023-04-13 18:50:00 98 /min [facility] Systolic blood pressure 2022-12-07 20:30:00 152 mm[Hg] [facility] Diastolic blood pressure 2022-12-07 20:30:00 100 mm[Hg] [facility] Heart rate 2022-12-07 20:29:00 106 /min [facility] Respiratory rate 2022-12-07 20:29:00 18 /min [facility] Body height 2022-12-07 20:29:00 129.5 cm [facility] Body weight 2022-12-07 20:29:00 44.906 kg [facility] BMI 2022-12-07 20:29:00 26.76 kg/m2 [facility] Oxygen saturation in Arterial blood by Pulse oximetry 2022-12-07 20:29:00 96 /min [facility] Body weight 2022-12-01 14:38:00 43.999 kg [facility] BMI 2022-12-01 14:38:00 22.54 kg/m2 [facility] Heart rate 2022-11-27 17:00:00 77 /min [facility] Oxygen saturation in Arterial blood by Pulse oximetry 2022-11-27 17:00:00 97 /min [facility] Respiratory rate 2022-11-27 16:59:00 19 /min [facility] Systolic blood pressure 2022-11-27 16:58:00 155 mm[Hg] [facility] Diastolic blood pressure 2022-11-27 16:58:00 96 mm[Hg] [facility] Body temperature 2022-11-27 16:33:00 36.11 Anh [facility] Body height 2022-11-27 12:49:00 139.7 cm [facility] Body weight 2022-11-27 12:49:00 43.999 kg [facility] BMI 2022-11-27 12:49:00 22.54 kg/m2 [facility] Heart rate 2022-11-27 16:57:00 70 /min [facility] Respiratory rate 2022-11-27 16:57:00 19 /min [facility] Oxygen saturation in Arterial blood by Pulse oximetry 2022-11-27 16:57:00 97 /min [facility] Systolic blood pressure 2022-11-27 16:53:00 142 mm[Hg] [facility] Diastolic blood pressure 2022-11-27 16:53:00 96 mm[Hg] [facility] Body temperature 2022-11-27 16:33:00 36.11 Anh [facility] Body height 2022-11-27 12:49:00 139.7 cm [facility] Body weight 2022-11-27 12:49:00 43.999 kg [facility] BMI 2022-11-27 12:49:00 22.54 kg/m2 [facility] Systolic blood pressure 2022-10-30 18:12:00 132 mm[Hg] [facility] Diastolic blood pressure 2022-10-30 18:12:00 95 mm[Hg] [facility] Heart rate 2022-10-30 18:12:00 71 /min [facility] Oxygen saturation in Arterial blood by Pulse oximetry 2022-10-30 18:12:00 97 /min [facility] Body temperature 2022-10-30 18:10:00 36.78 Anh [facility] Respiratory rate 2022-10-30 18:10:00 16 /min [facility] Body weight 2022-10-30 18:10:00 42.185 kg stated [facility] BMI 2022-10-30 18:10:00 21.62 kg/m2 [facility] Systolic blood pressure 2022-09-21 19:38:00 145 mm[Hg] [facility] Diastolic blood pressure 2022-09-21 19:38:00 94 mm[Hg] [facility] Heart rate 2022-09-21 19:38:00 61 /min [facility] Oxygen saturation in Arterial blood by Pulse oximetry 2022-09-21 19:38:00 96 /min [facility] Body temperature 2022-09-21 19:37:00 36.5 Anh [facility] Respiratory rate 2022-09-21 19:37:00 18 /min [facility] Body weight 2022-09-21 19:37:00 42.185 kg [facility] BMI 2022-09-21 19:37:00 21.62 kg/m2 [facility] Systolic blood pressure 2022-09-18 20:28:00 173 mm[Hg] [facility] Diastolic blood pressure 2022-09-18 20:28:00 114 mm[Hg] [facility] Heart rate 2022-09-18 20:28:00 82 /min [facility] Oxygen saturation in Arterial blood by Pulse oximetry 2022-09-18 20:28:00 98 /min [facility] Body temperature 2022-09-18 20:26:00 36.28 Anh [facility] Body height 2022-09-18 20:26:00 139.7 cm [facility] Body weight 2022-09-18 20:26:00 42.185 kg [facility] BMI 2022-09-18 20:26:00 21.62 kg/m2 [facility] Systolic blood pressure 2022-08-21 19:27:00 158 mm[Hg] [facility] Diastolic blood pressure 2022-08-21 19:27:00 108 mm[Hg] [facility] Heart rate 2022-08-21 19:27:00 68 /min [facility] Body weight 2022-08-21 19:27:00 42.185 kg [facility] BMI 2022-08-21 19:27:00 21.62 kg/m2 [facility] Oxygen saturation in Arterial blood by Pulse oximetry 2022-08-21 19:27:00 97 /min [facility] Body temperature 2022-08-21 19:25:00 36.5 Anh [facility] Systolic blood pressure 2022-07-10 19:09:00 140 mm[Hg] [facility] Diastolic blood pressure 2022-07-10 19:09:00 94 mm[Hg] [facility] Heart rate 2022-07-10 19:09:00 60 /min [facility] Oxygen saturation in Arterial blood by Pulse oximetry 2022-07-10 19:09:00 98 /min [facility] Body temperature 2022-07-10 19:07:00 36.94 Anh [facility] Respiratory rate 2022-07-10 19:07:00 18 /min [facility] Body height 2022-07-10 19:07:00 139.7 cm [facility] Body weight 2022-07-10 19:07:00 42.185 kg [facility] BMI 2022-07-10 19:07:00 21.62 kg/m2 [facility] Systolic blood pressure 2022-05-17 15:38:00 129 mm[Hg] [facility] Diastolic blood pressure 2022-05-17 15:38:00 78 mm[Hg] [facility] Heart rate 2022-05-17 15:38:00 75 /min [facility] Respiratory rate 2022-05-17 15:38:00 19 /min [facility] Body height 2022-05-17 15:38:00 139.7 cm [facility] Body weight 2022-05-17 15:38:00 42.185 kg [facility] BMI 2022-05-17 15:38:00 21.62 kg/m2 [facility] Oxygen saturation in Arterial blood by Pulse oximetry 2022-05-17 15:38:00 99 /min [facility] Systolic blood pressure 2022-05-01 18:27:00 147 mm[Hg] [facility] Diastolic blood pressure 2022-05-01 18:27:00 81 mm[Hg] [facility] Body weight 2022-05-01 18:27:00 42.457 kg [facility] BMI 2022-05-01 18:27:00 25.30 kg/m2 [facility] Heart rate 2022-05-01 18:22:00 98 /min [facility] Body temperature 2022-05-01 18:22:00 36.83 Anh [facility] Respiratory rate 2022-05-01 18:22:00 16 /min [facility] Body height 2022-05-01 18:22:00 129.5 cm [facility] Oxygen saturation in Arterial blood by Pulse oximetry 2022-05-01 18:22:00 98 /min [facility] Systolic blood pressure 2022-04-17 18:06:00 159 mm[Hg] [facility] Diastolic blood pressure 2022-04-17 18:06:00 110 mm[Hg] [facility] Heart rate 2022-04-17 18:05:00 80 /min [facility] Oxygen saturation in Arterial blood by Pulse oximetry 2022-04-17 18:05:00 97 /min [facility] height 2021-10-19 10:30:00 48 [in_i] [facility] weight 2021-10-19 10:30:00 98 [lb_av] [facility] temperature 2021-10-19 10:30:00 97.6 [degF] [facility] bmi 2021-10-19 10:30:00 29.9 kg/m2 [facility] oximetry 2021-10-19 10:30:00 96 % [facility] respiratory rate 2021-10-19 10:30:00 16 /min [facility] blood pressure systolic 2021-10-19 10:30:00 160 mm[Hg] [facility] blood pressure diastolic 2021-10-19 10:30:00 80 mm[Hg] [facility] Systolic blood pressure 2021-09-05 16:20:00 159 mm[Hg] [facility] Diastolic blood pressure 2021-09-05 16:20:00 110 mm[Hg] [facility] Heart rate 2021-09-05 16:20:00 114 /min [facility] Body temperature 2021-09-05 16:20:00 36.78 Anh [facility] Respiratory rate 2021-09-05 16:20:00 18 /min [facility] Body height 2021-09-05 16:20:00 121.9 cm [facility] Body weight 2021-09-05 16:20:00 44.453 kg [facility] BMI 2021-09-05 16:20:00 29.91 kg/m2 [facility] height 2021-04-12 11:00:00 48 [in_i] [facility] weight 2021-04-12 11:00:00 100 [lb_av] [facility] temperature 2021-04-12 11:00:00 97.8 [degF] [facility] bmi 2021-04-12 11:00:00 30.51 kg/m2 [facility] oximetry 2021-04-12 11:00:00 98 % [facility] respiratory rate 2021-04-12 11:00:00 18 /min [facility] blood pressure systolic 2021-04-12 11:00:00 138 mm[Hg] [facility] blood pressure diastolic 2021-04-12 11:00:00 84 mm[Hg] [facility] height 2021-02-17 16:00:00 48 [in_i] [facility] weight 2021-02-17 16:00:00 100 [lb_av] [facility] bmi 2021-02-17 16:00:00 30.51 kg/m2 [facility] height 2021-02-07 11:00:00 48 [in_i] [facility] weight 2021-02-07 11:00:00 100 [lb_av] [facility] temperature 2021-02-07 11:00:00 97.2 [degF] [facility] bmi 2021-02-07 11:00:00 30.51 kg/m2 [facility] oximetry 2021-02-07 11:00:00 99 % [facility] respiratory rate 2021-02-07 11:00:00 16 /min [facility] blood pressure systolic 2021-02-07 11:00:00 138 mm[Hg] [facility] blood pressure diastolic 2021-02-07 11:00:00 86 mm[Hg] [facility] height 2021-01-13 11:00:00 48 [in_i] [facility] weight 2021-01-13 11:00:00 100 [lb_av] [facility] temperature 2021-01-13 11:00:00 97.6 [degF] [facility] bmi 2021-01-13 11:00:00 30.51 kg/m2 [facility] oximetry 2021-01-13 11:00:00 98 % [facility] respiratory rate 2021-01-13 11:00:00 18 /min [facility] blood pressure systolic 2021-01-13 11:00:00 139 mm[Hg] [facility] blood pressure diastolic 2021-01-13 11:00:00 88 mm[Hg] [facility] height 2020-10-21 14:40:00 48 [in_i] [facility] weight 2020-10-21 14:40:00 100 [lb_av] [facility] temperature 2020-10-21 14:40:00 98.1 [degF] [facility] bmi 2020-10-21 14:40:00 30.51 kg/m2 [facility] oximetry 2020-10-21 14:40:00 98 % [facility] respiratory rate 2020-10-21 14:40:00 16 /min [facility] blood pressure systolic 2020-10-21 14:40:00 140 mm[Hg] [facility] blood pressure diastolic 2020-10-21 14:40:00 92 mm[Hg] [facility] BP Diastolic 2023-06-01 13:12:17 78 mm[Hg] [facility] BP Systolic 2023-06-01 13:12:17 120 mm[Hg] [facility] Heart Rate 2023-06-01 13:12:17 80 /min [facility] Height 2023-03-15 14:05:57 129.54 cm [facility] Weight 2023-03-15 14:05:57 [id number] kg [facility] Body Mass Index (BMI) 2023-03-15 14:05:57 26.76 kg/m2 [facility] BP Diastolic 2023-03-15 14:05:57 104 mm[Hg] [facility] BP Systolic 2023-03-15 14:05:57 144 mm[Hg] [facility] Procedures Procedure Date / Time Performed Performing Clinician Source DME/SUPPLY JUSTIFICATION 2024-05-09 14:11:47 Doc tor Unassigned, [place] [facility] BASIC METABOLIC PANEL (NA, K, CL, CO2, GLUCOSE, BUN, CREATININE, CA) 2024-05-01 20:41:00 Sam [facility] CBC WITH DIFF 2024-05-01 20:41:00 Jef Vargas [facility] INFLUENZA A/B RSV COVID NAAT 2024-05-01 20:41:00 Sam [facility] LAB ONLY COVID INTERPRETATION 2024-05-01 20:41:00 Jef Vargas [facility] XR ABDOMEN 1 VW 2024-05-01 16:26:50 Lisa Julian [facility] XR CHEST 1 VW 2024-05-01 16:26:50 Lisa Julian [facility] CT HEAD WO CONTRAST 2024-05-01 16:25:59 Francisco Julian [facility] DME/SUPPLY JUSTIFICATION 2024-04-28 17:12:12 Doc tor Unassigned, [place] [facility] PHYSICIAN ORDERS 2024-03-24 17:00:18 Doctor Unas signed, [place] [facility] Estab. patient 10-29min; 1 minor problem; add add modifier 95 for video, modifier 93 for phone 2024-02-22 08:06:47 [facility] CODERS only for 2023 DOS 2024-01-01 12:37:02 [facility] Medication List Documented (1159F) 2024-01-01 12:37:02 [facility] DME/SUPPLY JUSTIFICATION 2023-12-04 13:06:05 Doc tor Unassigned, [place] [facility] DME/SUPPLY JUSTIFICATION 2023-12-04 13:06:00 Doc tor Unassigned, [place] [facility] DME/SUPPLY JUSTIFICATION 2023-11-05 18:15:01 Doc tor Unassigned, [place] [facility] DME/SUPPLY JUSTIFICATION 2023-11-01 18:49:06 Doc tor Unassigned, [place] [facility] CODERS only for 2023 DOS 2023-10-26 15:29:56 [facility] Pain Assessment - NO pain documented (1126F) 2023-10-26 15:29:56 [facility] Medication List Documented (1159F) 2023-10-26 15:29:56 [facility] DME/SUPPLY JUSTIFICATION 2023-10-19 18:32:19 Doc tor Unassigned, [place] [facility] DME/SUPPLY JUSTIFICATION 2023-10-17 16:17:52 Doc tor Unassigned, [place] [facility] DME/SUPPLY JUSTIFICATION 2023-10-17 16:17:50 Doc tor Unassigned, [place] [facility] CODERS only for 2023 DOS 2023-09-26 14:04:57 [facility] Pain Assessment - NO pain documented (1126F) 2023-09-26 14:04:57 [facility] CODERS only for 2023 DOS 2023-09-22 09:29:20 [facility] CODERS only for 2023 DOS 2023-06-01 13:12:17 [facility] Pain Assessment - Pain Documented (1125F) 2023-06-01 13:12:17 [facility] SBP < 130 (3074F) 2023-06-01 13:12:17 [facility] DBP <80 (3078F) 2023-06-01 13:12:17 [facility] DUPLEX VENOUS LEGS BILATERAL - BY VASCULAR LAB 2023-05-16 20:42:29 Gorge Aviles [facility] CODERS only for 2023 DOS 2023-04-02 12:42:48 [facility] Pain Assessment - NO pain documented (1126F) 2023-04-02 12:42:48 [facility] CODERS only for 2023 DOS 2023-03-21 19:10:08 [facility] Medication List Documented (1159F) 2023-03-21 19:10:08 [facility] New patient,40-59min; chronic exacerbation, 2 stable chronic or 1 acute illness add add modifier 95 for video (do not use for phone, instead use [id number]) 2023-03-15 14:05:57 [facility] Medication List Documented (1159F) 2023-03-15 14:05:57 [facility] Medication Review by prescribing provider or pharmacist documented (1160F) 2023-03-15 14:05:57 [facility] Functional Status Assessed (1170F) 2023-03-15 14:05:57 [facility] Pain Assessment - NO pain documented (1126F) 2023-03-15 14:05:57 [facility] Advance Care Directive Advance care planning discussion documented in the medical record (1158F) 2023-03-15 14:05:57 [facility] BMI obtained (3008F) 2023-03-15 14:05:57 [facility] SBP >= 140 2023-03-15 14:05:57 [facility] DBP >=90 2023-03-15 14:05:57 [facility] No Data Available 2023-03-15 14:05:57 [facility] Advance care planning discussed and documented in the medical record beneficiary/patient did not wish to or was unable to provide an advance care plan or name a surrogate decision-maker. (1124F) 2023-03-15 14:05:57 [facility] REFERRAL- REQUEST/RESPONSE 2023-02-23 06:01:00 Doctor Unassigned, [place] [facility] KELOID EXCISION 2022-11-27 14:45:00 Rigo Rodriguez [facility] WOUND CLOSURE 2022-11-27 14:45:00 Rigo Rodriguez [facility] DAY SURGERY - ADC 2022-11-27 05:01:00 Doctor Neha ssigned, [place] [facility] INSURANCE CORRESPONDENCE 2022-11-02 05:01:00 Doc tor Unassigned, [place] [facility] INSURANCE CORRESPONDENCE 2022-11-02 05:01:00 Doc tor Unassigned, [place] [facility] EXTERNAL PROVIDER RECORDS 2022-10-12 05:01:00 Do ctor Unassigned, [place] [facility] DUPLEX VENOUS LEG RIGHT - BY VASCULAR LAB 2022-10-04 19:17:00 Melvin Yu [facility] EXTERNAL PROVIDER RECORDS 2022-09-26 05:01:00 Do ctor Unassigned, [place] [facility] PHYSICIAN ORDERS 2022-09-06 05:01:00 Doctor Unas signed, [place] [facility] EXTERNAL PROVIDER RECORDS 2022-08-21 05:01:00 Do ctor Unassigned, [place] [facility] REFERRAL- REQUEST/RESPONSE 2022-06-30 05:01:00 Doctor Unassigned, [place] [facility] ASSIGNMENT OF BENEFITS 2022-05-17 15:16:18 Docto r Unassigned, [place] [facility] PATIENT FINANCIAL POLICY 2022-05-01 17:25:50 Doctor Unassigned, [place] [facility] AUTHORIZATION FOR RELEASE OF PHI 2021-09-12 05:01:00 Doctor Unassigned, [place] [facility] Encounters Start Date/Time End Date/Time Encounter Type Admission Type Attending Clinicians Care Facility Care Department Encounter ID Source 2023-02-15 15:58:[address] [facility] [id number] [facility] 2022-09-04 11:12:04 Outpatient [facility] [id number] [facility] 2021-09-28 11:51:[address] [facility] [id number] [facility] 2021-08-23 10:30:00 Outpatient Waleska Martinez [facility] [id number] [facility] 2021-07-11 08:31:00 Outpatient Waleska Martinez [facility] [id number] [facility] 2021-04-08 13:36:01 Outpatient [place] [facility] [id number] [facility] 2021-03-02 14:34:25 Outpatient Waleska Martinez [facility] [id number] [facility] 2021-03-02 13:07:42 Outpatient Waleska Martinez [facility] [id number] [facility] 2021-03-02 13:02:33 Outpatient Waleska Martinez [facility] [id number] [facility] 2021-03-02 12:55:38 Outpatient Waleska Martinez [facility] [id number] [facility] 2021-03-02 12:38:25 Outpatient Waleska Martinez [facility] [id number] [facility] 2021-03-02 12:29:09 Outpatient Waleska Martinez [facility] [id number] [facility] 2021-03-02 12:26:15 Outpatient Waleska Martinez [facility] [id number] [facility] 2021-03-02 12:11:54 Outpatient Waleska Martinez [facility] [id number] [facility] 2021-03-02 11:46:57 Outpatient Waleska Martinez [facility] [id number] [facility] 2021-03-02 11:46:24 [facility] [id number] [facility] 2021-03-02 11:16:[address] [facility] [id number] [facility] 2021-03-02 10:58:[address] [facility] [id number] [facility] 2021-03-02 10:57:[address] [facility] [id number] [facility] 2024-08-20 11:00:00 2024-08-20 11:00:00 Outpatient R OBIJOSE L [facility] [id number] [facility] 2024-06-17 00:00:00 2024-06-17 10:50:37 Telephone [facility] [id number] [facility] 2024-06-12 10:30:00 2024-06-12 10:30:00 Outpatient R [facility] [id number] [facility] 2024-06-10 00:00:00 2024-06-10 15:49:21 Patient Secure Msg [facility] [id number] [facility] 2024-06-05 00:00:00 2024-06-05 12:43:13 Letter (Out) [facility] [id number] [facility] [facility] 2024-06-04 00:00:00 2024-06-04 14:27:[address] [facility] BUILDING 1.2.840.114 350.1.13.10 4.2.7.2.686 [id number] 085 [id number] [facility] 2024-05-30 13:30:00 2024-05-30 14:00:02 Outpatient R KHADIJAH M[facility]HALL [facility] [id number] [facility] 2024-05-30 13:30:00 2024-05-30 14:00:02 Office Visit Khadijah Mendenhall [facility] BUILDING 1.2.840.114 350.1.13.10 4.2.7.2.686 [id number] [id number] [facility] 2024-05-21 11:45:00 2024-05-21 12:00:00 Split Leather Department Supervisor Visit 2, Adc Lab Lexi Borrero 2, Adc Lab [facility] BUILDING 1.2.840.114 350.1.13.10 4.2.7.2.686 [id number] [facility] 2024-05-21 11:00:00 2024-05-21 11:46:06 Outpatient [facility] [id number] [facility] 2024-05-21 11:00:00 2024-05-21 11:46:06 [facility] 1.2.840.114 350.1.13.10 4.2.7.2.686 [id number] 044 [id number] [facility] 2024-05-15 00:00:00 2024-05-15 17:12:[address]ro [facility] BUILDING 1.2.840.114 350.1.13.10 4.2.7.2.686 [id number] 044 [id number] [facility] 2024-05-13 00:00:00 2024-05-13 23:42:35 Telephone [facility]bi[facility]Se , [facility] 1.2.840.114 350.1.13.10 4.2.7.2.686 [id number] 044 [id number] [facility] 2024-05-09 00:00:00 2024-05-13 02:04:48 Orders Only Doctor Unassigned, [place] Doctor Unassigned, [place] [facility] ([place]) 1.2.840.114 350.1.13.10 4.2.7.2.686 [id number] [id number] [facility] 2024-05-08 15:00:00 2024-05-08 15:00:00 Outpatient R OBI-SE , LEXI [facility] [id number] [facility] 2024-05-05 00:00:00 2024-05-05 15:39:15 Telephone [facility] 1.2.840.114 350.1.13.10 4.2.7.2.686 [id number] 044 [id number] [facility] 2024-05-05 13:00:00 2024-05-05 13:00:00 Outpatient R OBI-SE , LEXI OBI-SE , LEXI [facility] [id number] [facility] 2024-05-01 14:54:00 2024-05-01 20:34:00 Emergency DELGADO RICHTER NATHAN HIMANOHAR ERT [id number] [facility] 2024-05-01 14:54:00 2024-05-01 20:34:00 Emergency Delgado Velasquez [facility] 1.2840.114 350.1.13.10 4.2.7.2.686 [id number] 014 [id number] [facility] 2024-04-30 00:00:00 2024-05-01 14:14:00 [facility] BU[facility] 1.2840.114 350.1.13.10 4.2.7.2.686 [id number] 044 [id number] [facility] 2024-05-01 10:36:00 2024-05-01 13:47:00 Emergency X LISA JULIAN DONNELL [facility] [id number] [facility] 2024-05-01 10:36:00 2024-05-01 13:47:00 Emergency Lisa Julian [facility] 1.2840.114 350.1.13.10 4.2.7.2.686 [id number] 084 [id number] [facility] 2024-05-01 13:00:00 2024-05-01 13:00:00 Outpatient R [facility]uss[facility] [id number] [facility] 2024-05-01 00:00:00 2024-05-01 11:32:04 Letter (Out) [facility] ([place]) 1.2840.114 350.1.13.10 4.2.7.2.686 [id number] 019 [id number] [facility] 2024-05-01 00:00:00 2024-05-01 09:55:38 Telephone Gorge Av[facility] 1.2840.114 350.1.13.10 4.2.7.2.686 [id number] 092 [id number] [facility] 2024-04-21 00:00:00 2024-04-30 10:47:30 Patient Secure Msg Obi-Lexi Saez [facility] 1.2.840.114 350.1.13.10 4.2.7.2.686 [id number] 044 [id number] [facility] 2024-04-30 09:20:00 2024-04-30 10:22:54 Outpatient R OBI-SE LEXI OBI-SE , [facility] [id number] [facility] 2024-04-30 09:20:00 2024-04-30 10:22:54 Office Visit [facility]bi[facility] 1.2.840.114 350.1.13.10 4.2.7.2.686 [id number] 044 [id number] [facility] 2024-04-28 00:00:00 2024-04-30 02:05:00 Orders Only Doctor Unassigned, [place] Doctor Unassigned, [place] [facility] ([place]) 1.2.840.114 350.1.13.10 4.2.7.2.686 [id number] 009 [id number] [facility] 2024-04-28 00:00:00 2024-04-29 23:00:06 Telephone [facility] 1.2.840.114 350.1.13.10 4.2.7.2.686 [id number] 044 [id number] [facility] 2024-04-28 10:40:00 2024-04-28 10:40:00 Outpatient R OBI-SE LEXI [facility] [id number] [facility] 2024-03-20 00:00:00 2024-04-26 18:21:12 Patient Secure Msg [facility] 1.2.840.114 350.1.13.10 4.2.7.2.686 [id number] 044 [id number] [facility] 2024-04-10 00:00:00 2024-04-10 12:44:24 Patient Secure Msg [facility]bi[facility] 1.2.840.114 350.1.13.10 4.2.7.2.686 [id number] 044 [id number] [facility] 2024-04-10 00:00:00 2024-04-10 08:27:12 Patient Secure M[facility] 1.2.840.114 350.1.13.10 4.2.7.2.686 [id number] 044 [id number] [facility] 2024-04-09 00:00:00 2024-04-09 15:41:16 Patient Secure Msg Obi-Se [facility] NAL BUILDING 1.2.840.114 350.1.13.10 4.2.7.2.686 [id number] 044 [id number] [facility] 2024-04-08 00:00:00 2024-04-09 08:37:32 Telephone [facility] 1.2.840.114 350.1.13.10 4.2.7.2.686 [id number] 044 [id number] [facility] 2024-04-08 00:00:00 2024-04-09 08:14:34 Patient Secure Msg [facility]bi[facility] 1.2.840.114 350.1.13.10 4.2.7.2.686 [id number] 044 [id number] [facility] 2024-04-08 14:57:46 2024-04-08 23:59:00 Outpatient R LEXI BORRERO [facility] [id number] [facility] 2024-04-08 14:57:46 2024-04-08 23:59:00 Hospital Encounter Lexi Borrero [facility] 1.2.840.114 350.1.13.10 4.2.7.2.686 [id number] [facility] 2024-04-08 15:30:00 2024-04-08 15:45:00 Split [place]ather Department Supervisor Visit 2, Adc Lab Lexi Borrero 2, Adc Lab [facility] NAL BUILDING 1.2.840.114 350.1.13.10 4.2.7.2.686 [id number] [facility] 2024-04-08 14:20:00 2024-04-08 14:40:52 Office Visit Julito Carr [facility] NAL BUILDING 1.2.840.114 350.1.13.10 4.2.7.2.686 [id number] 059 [id number] [facility] 2024-04-08 13:00:00 2024-04-08 13:22:04 Office Visit Lexi Borrero [facility] BUILDING 1.2.840.114 350.1.13.10 4.2.7.2.686 [id number] 044 [id number] [facility] 2024-03-03 00:00:00 2024-04-05 18:17:14 Patient Secure Msg Doctor Unassigned, [place] Doctor Unassigned, [place] [facility] ([place]) 1.2.840.114 350.1.13.10 4.2.7.2.686 [id number] 019 [id number] [facility] 2024-03-04 00:00:00 2024-04-05 18:15:58 Patient Secure Msg Doctor Unassigned, [place] Doctor Unassigned, [place] [facility] BUILDING 1.2.840.114 350.1.13.10 4.2.7.2.686 [id number] 044 [id number] [facility] 2024-03-31 00:00:00 2024-04-04 10:23:09 Refill Obi-Se , Lexi [facility] 1.2.840.114 350.1.13.10 4.2.7.2.686 [id number] 044 [id number] [facility] 2024-03-24 00:00:00 2024-03-26 02:04:27 Orders Only Doctor Unassigned, [place] Doctor Unassigned, [place] [facility] ([place]) 1.2.840.114 350.1.13.10 4.2.7.2.686 [id number] 009 [id number] [facility] 2023-10-17 00:00:00 2024-03-22 06:59:44 Orders Only Doctor Unassigned, [place] Doctor Unassigned, [place] [facility] ([place]) 1.2.840.114 350.1.13.10 4.2.7.2.686 [id number] 009 [id number] [facility] 2023-10-17 00:00:00 2024-03-22 06:59:37 Orders Only Doctor Unassigned, [place] Doctor Unassigned, [place] [facility] ([place]) 1.2.840.114 350.1.13.10 4.2.7.2.686 [id number] 009 [id number] [facility] 2023-10-19 00:00:00 2024-03-22 06:58:58 Orders Only Doctor Unassigned, [place] Doctor Unassigned, [place] [facility] ([place]) 1.2.840.114 350.1.13.10 4.2.7.2.686 [id number] 009 [id number] [facility] 2023-11-01 00:00:00 2024-03-22 06:55:07 Orders Only Doctor Unassigned, [place] Doctor Unassigned, [place] [facility] ([place]) 1.2.840.114 350.1.13.10 4.2.7.2.686 [id number] 009 [id number] [facility] 2023-11-05 00:00:00 2024-03-22 06:54:20 Orders Only Doctor Unassigned, [place] Doctor Unassigned, [place] [facility] 1.2.840.114 350.1.13.10 4.2.7.2.686 [id number] [facility] 2023-12-04 00:00:00 2024-03-22 06:43:52 Orders Only Doctor Unassigned, [place] Doctor Unassigned, [place] [facility] 1.2.840.114 350.1.13.10 4.2.7.2.686 [id number] [facility] 2023-12-04 00:00:00 2024-03-22 06:43:47 Orders Only Doctor Unassigned, [place] Doctor Unassigned, [place] [facility] ([place]) 1.2.840.114 350.1.13.10 4.2.7.2.686 [id number] 009 [id number] [facility] 2024-03-04 00:00:00 2024-03-04 16:03:12 Letter (Out) [facility] ([place]) 1.2.840.114 350.1.13.10 4.2.7.2.686 [id number] 019 [id number] [facility] 2024-03-01 00:00:00 2024-03-03 08:23:47 Patient Secure Msg Doctor Unassigned, [place] Doctor Unassigned, [place] [facility] BUILDING 1.2840.114 350.1.13.10 4.2.7.2.686 [id number] 044 [id number] [facility] 2024-02-29 00:00:00 2024-03-01 22:15:43 Patient Secure Msg Doctor Unassigned, [place] Doctor Unassigned, [place] [facility] 1.2840.114 350.1.13.10 4.2.7.2.686 [id number] 044 [id number] [facility] 2024-02-28 00:00:00 2024-02-28 20:58:48 Telephone ObiSe [facility] 1.2840.114 350.1.13.10 4.2.7.2.686 [id number] 044 [id number] [facility] 2024-02-22 00:00:00 2024-02-22 00:00:00 Acquired absence of kidney Neuromuscu lar dysfunctio n of bladder, unspecifie d [facility] ([place]) 2.16.840.1 .173968.3. 8294.24.92 [id number] [facility] 2024-02-19 00:00:00 2024-02-20 08:11:38 Patient Secure Msg Obi-Se [facility] 1.2840.114 350.1.13.10 4.2.7.2.686 [id number] 044 [id number] [facility] 2024-02-19 00:00:00 2024-02-19 16:32:39 Telephone [facility] 1.2840.114 350.1.13.10 4.2.7.2.686 [id number] 044 [id number] [facility] 2024-02-18 00:00:00 2024-02-19 08:16:32 Patient Secure Msg [facility] 1.2.840.114 350.1.13.10 4.2.7.2.686 [id number] 044 [id number] [facility] 2024-02-18 00:00:00 2024-02-18 19:31:21 [facility] 1.2.840.114 350.1.13.10 4.2.7.2.686 [id number] 044 [id number] [facility] 2024-01-18 00:00:00 2024-01-18 16:12:15 Patient Secure Msg [facility]bi[facility] BUILDING 1.2.840.114 350.1.13.10 4.2.7.2.686 [id number] 044 [id number] [facility] 2024-01-16 00:00:00 2024-01-16 10:28:58 Patient Secure Msg Obi-Se [facility] NAL BUILDING 1.2.840.114 350.1.13.10 4.2.7.2.686 [id number] 044 [id number] [facility] 2024-01-14 00:00:00 2024-01-14 08:22:57 Refill Jose [facility] 1.2.840.114 350.1.13.10 4.2.7.2.686 [id number] 044 [id number] [facility] 2024-01-08 00:00:00 2024-01-09 10:41:39 Telephone Obi-Se [facility] BUILDING 1.2.840.114 350.1.13.10 4.2.7.2.686 [id number] 044 [id number] [facility] 2024-01-08 10:40:00 2024-01-08 10:40:00 Office Visit Adair [facility] BUILDING 1.2.840.114 350.1.13.10 4.2.7.2.686 [id number] 044 [id number] [facility] 2024-01-08 10:40:00 2024-01-08 10:35:29 Outpatient R BROOK-LEXI SAEZ OBI-SE [facility] [id number] [facility] 2024-01-01 00:00:00 2024-01-01 11:42:45 Patient Secure Msg Adair [facility] BUILDING 1.2.840.114 350.1.13.10 4.2.7.2.686 [id number] 044 [id number] [facility] 2023-12-31 00:00:00 2024-01-01 08:33:56 Patient Secure Msg Obi-Se [facility] BUILDING 1.2.840.114 350.1.13.10 4.2.7.2.686 [id number] 044 [id number] [facility] 2024-01-01 00:00:00 2024-01-01 00:00:00 Insomnia, unspecifie d [facility] 2.16.840.1 .092046.3. 8294.24.89 [id number] 608 Ladarius hannah 2023-11-22 00:00:00 2023-12-29 18:30:14 Patient Secure Msg Obi-Se , [facility] BUILDING 1.2.840.114 350.1.13.10 4.2.7.2.686 [id number] 044 [id number] [facility] 2023-11-18 00:00:00 2023-12-22 18:23:23 Patient Secure Msg Doctor Unassigned, [place] Doctor Unassigned, [place] [facility] 1.2.840.114 350.1.13.10 4.2.7.2.686 [id number] 044 [id number] [facility] 2023-12-14 00:00:00 2023-12-17 09:42:29 Telephone [facility] 1.2.840.114 350.1.13.10 4.2.7.2.686 [id number] 044 [id number] [facility] 2023-12-14 00:00:00 2023-12-14 11:24:16 Telephone [facility]air [facility] 1.2.840.114 350.1.13.10 4.2.7.2.686 [id number] 044 [id number] [facility] 2023-12-05 00:00:00 2023-12-10 02:55:59 Patient Secure Msg Jose GuadalupeiDrew [facility] 1.2.840.114 350.1.13.10 4.2.7.2.686 [id number] 044 [id number] [facility] 2023-12-04 00:00:00 2023-12-04 23:41:38 Patient Secure Msg Obi-Se [facility] 1.2.840.114 350.1.13.10 4.2.7.2.686 [id number] 044 [id number] [facility] 2023-11-30 00:00:00 2023-11-30 11:06:37 Telephone Adair [facility] BUILDING 1.2.840.114 350.1.13.10 4.2.7.2.686 [id number] 044 [id number] [facility] 2023-11-27 00:00:00 2023-11-27 13:19:46 Telephone Adair [facility] BUILDING 1.2.840.114 350.1.13.10 4.2.7.2.686 [id number] 044 [id number] [facility] 2023-11-21 00:00:00 2023-11-22 15:07:55 Patient Secure Msg ObDrew [facility] BUILDING 1.2.840.114 350.1.13.10 4.2.7.2.686 [id number] 044 [id number] [facility] 2023-11-20 16:00:00 2023-11-20 16:00:00 Telemedici ne Visit Leo Nataly [facility] BUILDING 1.2.840.114 350.1.13.10 4.2.7.2.686 [id number] 044 [id number] [facility] 2023-11-20 16:00:00 2023-11-20 10:56:50 Outpatient R NATALY BENTON [facility] [id number] [facility] 2023-11-20 00:00:00 2023-11-20 09:06:54 Telephone Leo Nataly [facility] 1.2.840.114 350.1.13.10 4.2.7.2.686 [id number] 044 [id number] [facility] 2023-11-19 00:00:00 2023-11-19 08:58:[address] Russell [facility] BUILDING 1.2.840.114 350.1.13.10 4.2.7.2.686 [id number] 044 [id number] [facility] 2023-11-09 00:00:00 2023-11-12 11:11:26 Telephone ObBrenda [facility] 1.2.840.114 350.1.13.10 4.2.7.2.686 [id number] 044 [id number] [facility] 2023-10-31 00:00:00 2023-10-31 16:12:12 Telephone ObBrenda [facility] 1.2.840.114 350.1.13.10 4.2.7.2.686 [id number] 044 [id number] [facility] 2023-10-31 00:00:00 2023-10-31 16:08:39 Patient Secure Msg Doctor Unassigned, [place] Doctor Unassigned, [place] [facility] 1.2.840.114 350.1.13.10 4.2.7.2.686 [id number] 044 [id number] [facility] 2023-10-30 00:00:00 2023-10-31 10:58:17 Patient Secure Msg Doctor Unassigned, [place] Doctor Unassigned, [place] [facility] 1.2.840.114 350.1.13.10 4.2.7.2.686 [id number] 044 [id number] [facility] 2023-10-30 00:00:00 2023-10-30 16:40:12 Telephone ObSe [facility] 1.2.840.114 350.1.13.10 4.2.7.2.686 [id number] 044 [id number] [facility] 2023-10-26 00:00:00 2023-10-26 00:00:00 Essential (primary) hypertensi on Other problems related to medical facilities and other health care [facility] [place] 2.16.840.1 .861739.3. 8294.24.85 [id number] 208 [facility] 2023-10-24 00:00:00 2023-10-24 16:05:03 Patient Secure Msg Obi-Se , [facility] BUILDING 1.2.840.114 350.1.13.10 4.2.7.2.686 [id number] 044 [id number] [facility] 2023-10-23 00:00:00 2023-10-24 08:10:41 Patient Secure Msg Obi-Se , [facility] 1.2.840.114 350.1.13.10 4.2.7.2.686 [id number] 044 [id number] [facility] 2023-10-23 00:00:00 2023-10-23 15:52:41 Patient Secure Msg Obi-Se , [facility] 1.2.840.114 350.1.13.10 4.2.7.2.686 [id number] 044 [id number] [facility] 2023-10-18 00:00:00 2023-10-18 14:50:19 Patient Secure Msg Doctor Unassigned, [place] Doctor Unassigned, [place] [facility] BUILDING 1.2.840.114 350.1.13.10 4.2.7.2.686 [id number] 044 [id number] [facility] 2023-10-11 00:00:00 2023-10-18 14:15:28 Patient Secure Msg Doctor Unassigned, [place] Doctor Unassigned, [place] [facility] 1.2.840.114 350.1.13.10 4.2.7.2.686 [id number] 044 [id number] [facility] 2023-10-18 00:00:00 2023-10-18 11:27:03 Telephone Obi-Se [facility] 1.2.840.114 350.1.13.10 4.2.7.2.686 [id number] 044 [id number] [facility] 2023-10-18 10:00:00 2023-10-18 10:00:00 Outpatient R OBI-SE , LEXI OBI-SE [facility] [id number] [facility] 2023-10-15 00:00:00 2023-10-18 09:57:58 Patient Secure Msg Doctor Unassigned, [place] Doctor Unassigned, [place] [facility] 1.2.840.114 350.1.13.10 4.2.7.2.686 [id number] 044 [id number] [facility] 2023-10-12 00:00:00 2023-10-15 08:11:26 Refill Obi-Se , [facility] 1.2.840.114 350.1.13.10 4.2.7.2.686 [id number] 044 [id number] [facility] 2023-10-11 00:00:00 2023-10-12 09:01:16 Telephone Obi-Se [facility] 1.2.840.114 350.1.13.10 4.2.7.2.686 [id number] 044 [id number] [facility] 2023-10-09 00:00:00 2023-10-10 22:43:15 Telephone Obi-Se , [facility] 1.2.840.114 350.1.13.10 4.2.7.2.686 [id number] 044 [id number] [facility] 2023-10-09 00:00:00 2023-10-10 11:36:57 Patient Secure M[facility] 1.2.840.114 350.1.13.10 4.2.7.2.686 [id number] 044 [id number] [facility] 2023-10-09 13:15:00 2023-10-09 13:15:00 Split Leather Department Supervisor Visit 2, Adc Lab Lexi Borrero 2, Adc Lab [facility] BUILDING 1.2.840.114 350.1.13.10 4.2.7.2.686 [id number] [facility] 2023-10-09 11:20:00 2023-10-09 11:42:31 Outpatient R LEXI BORRERO [facility] [id number] [facility] 2023-10-09 11:20:00 2023-10-09 11:42:31 Office [facility] 1.2.840.114 350.1.13.10 4.2.7.2.686 [id number] 044 [id number] [facility] 2023-10-01 00:00:00 2023-10-01 15:45:28 Telephone Adair [facility] BUILDING 1.2.840.114 350.1.13.10 4.2.7.2.686 [id number] 044 [id number] [facility] 2023-09-26 00:00:00 2023-09-26 00:00:00 Acute cough Other fatigue [facility] ([place] 2.16.840.1 .059874.3. 8294.24.83 [id number] [facility] 2023-09-22 00:00:00 2023-09-22 00:00:00 Other fatigue Acute cough [facility] [place] 2.16.840.1 .192661.3. 8294.24.83 [id number] [facility] 2021-07-09 00:00:00 2023-07-24 02:14:43 Mobile Device Encounter Mis Rodriguez [facility] BUILDING 1.2.840.114 350.1.13.10 4.2.7.2.686 [id number] [facility] 2023-06-01 00:00:00 2023-06-01 00:00:00 Paraplegia , unspecifie d Overweight [facility] [place] 2.16.840.1 .968671.3. 8294.24.77 [id number] [facility] 2023-05-26 00:00:00 2023-05-26 00:00:00 Telephone Gorge [facility] 1.2.840.114 350.1.13.10 4.2.7.2.686 [id number] [facility] 2023-05-23 13:00:00 2023-05-23 13:12:03 [facility] [id number] [facility] 2023-05-23 13:00:00 2023-05-23 13:12:03 [facility] 1.2.840.114 350.1.13.10 4.2.7.2.686 [id number] [facility] 2023-05-22 11:00:00 2023-05-22 11:00:00 [facility] [id number] [facility] 2023-05-17 00:00:00 2023-05-17 00:00:00 Telephone Gorge [facility] BU[facility] 1.2.840.114 350.1.13.10 4.2.7.2.686 [id number] [facility] 2023-05-16 14:45:43 2023-05-16 23:59:00 Outpatient R GORGE AVILES [facility] [id number] [facility] 2023-05-16 14:45:43 2023-05-16 23:59:00 [facility] Encounter Gorge Aviles [facility] 1.2.840.114 350.1.13.10 4.2.7.2.686 [id number] [facility] 2023-05-09 00:00:00 2023-05-09 00:00:00 [facility] 1.2.840.114 350.1.13.10 4.2.7.2.686 [id number] [facility] 2023-04-27 10:00:00 2023-04-27 10:00:00 Outpatient JULITO [facility] [id number] [facility] 2023-04-19 11:00:00 2023-04-19 11:00:00 Outpatient JULITO [facility]STON [facility] [id number] [facility] 2023-04-16 00:00:00 2023-04-16 00:00:00 Telephone [facility] BU[facility] 1.2.840.114 350.1.13.10 4.2.7.2.686 [id number] [facility] 2023-04-13 12:40:00 2023-04-13 13:58:38 Outpatient R GORGE AVILES [facility] [id number] [facility] 2023-04-13 12:40:00 2023-04-13 13:58:38 Office [facility] 1.2.840.114 350.1.13.10 4.2.7.2.686 [id number] [facility] 2023-04-04 00:00:00 2023-04-04 00:00:00 Telephone [facility] BUILDING 1.2.840.114 350.1.13.10 4.2.7.2.686 [id number] [facility] 2023-04-02 00:00:00 2023-04-02 00:00:00 Other fatigue Iron deficiency anemia, [facility]ifie d [facility] 2.16.840.1 .896922.3. 8294.24.74 [id number] [facility] 2023-03-30 14:20:00 2023-03-30 14:20:00 [facility] [id number] [facility] 2023-03-30 00:00:00 2023-03-30 00:00:00 Telephone [facility] BUILDING 1.2.840.114 350.1.13.10 4.2.7.2.686 [id number] [facility] 2023-03-21 00:00:00 2023-03-21 00:00:00 Other fatigue [facility] [place] 2.16.840.1 .967925.3. 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 8294.24.73 [id number] [facility] 2023-03-05 00:00:00 2023-03-05 00:00:00 [facility]phone [facility] BU[facility] 1.2.840.114 350.1.13.10 4.2.7.2.686 [id number] [id number] [facility] 2023-02-23 00:00:00 2023-02-23 00:00:00 Orders Only Doctor Unassigned, [place] [facility] 1.2.840.114 350.1.13.10 4.2.7.2.686 [id number] [id number] [facility] 2023-01-18 13:30:00 2023-01-18 13:30:00 Outpatient ZEESHAN LERMA [facility] [id number] [facility] 2022-12-07 16:00:00 2022-12-07 16:00:00 Office Visit Mis Rodriguez [facility] BUILDING 1.2.840.114 350.1.13.10 4.2.7.2.686 [id number] [facility] 2022-12-07 16:00:00 2022-12-07 15:56:13 Outpatient MIS HENDRIX [facility] [id number] [facility] 2022-12-01 11:00:00 2022-12-01 12:04:38 Outpatient RIGO AHMADI [facility] [id number] [facility] 2022-12-01 11:00:00 2022-12-01 12:04:38 Nurse Visit Nurse, [facility] Surgery Rigo Rodriguez [facility] PROFESSIO NAL BUILDING 1.2.840.114 350.1.13.10 4.2.7.2.686 [id number] [facility] 2022-11-28 00:00:00 2022-11-28 00:00:00 Telephone Rigo Rodriguez [facility] PROFESSIO [facility] BUILDING 1.2.840.114 350.1.13.10 4.2.7.2.686 [id number] [facility] 2022-11-27 09:09:00 2022-11-27 12:12:00 Outpatient RIGO AHMADI [facility] [id number] [facility] 2022-11-27 09:09:00 2022-11-27 12:12:00 Hospital Encounter Rigo Rodriguez [facility] [place] 1.2840.114 350.1.13.10 4.2.7.2.686 [id number] 071 [id number] [facility] 2022-11-27 09:45:00 2022-11-27 11:57:00 Surgery Rigo Rodriguez [facility] [place] 1.2840.114 350.1.13.10 4.2.7.2.686 [id number] [id number] [facility] 2022-11-27 00:00:00 2022-11-27 00:00:00 Orders Only Doctor Unassigned, [place] [facility] 1.2840.114 350.1.13.10 4.2.7.2.686 [id number] [id number] [facility] 2022-11-21 00:00:00 2022-11-21 00:00:00 Letter (Out) [facility] BUILDING 1.2.840.114 350.1.13.10 4.2.7.2.686 [id number] 205 [id number] [facility] 2022-11-21 00:00:00 2022-11-21 00:00:00 Letter (Out) Naeem Maurice [facility] 1.2.840.114 350.1.13.10 4.2.7.2.686 [id number] 204 [id number] [facility] 2022-11-21 00:00:00 2022-11-21 00:00:00 Telephone Aimee, [facility] MEDICAL OFFICE BUILDING 1.2.840.114 350.1.13.10 4.2.7.2.686 [id number] 205 [id number] [facility] 2022-11-21 00:00:00 2022-11-21 00:00:00 Telephone Rigo Rodriguez [facility] BUILDING 1.2.840.114 350.1.13.10 4.2.7.2.686 [id number] 201 [id number] [facility] 2022-11-17 00:00:00 2022-11-17 00:00:00 Telephone Aimee Melvin [facility] 1.2.840.114 350.1.13.10 4.2.7.2.686 [id number] 205 [id number] [facility] 2022-11-17 00:00:00 2022-11-17 00:00:00 Patient Secure Chavo Oconnor [facility] 1.2.840.114 350.1.13.10 4.2.7.2.686 [id number] 044 [id number] [facility] 2022-11-15 00:00:00 2022-11-15 00:00:00 Telephone Aimee, [facility] CLINIC 1.2.840.114 350.1.13.10 4.2.7.2.686 [id number] 205 [id number] [facility] 2022-11-10 00:00:00 2022-11-10 00:00:00 Telephone Rigo Rodriguez [facility] PROFESSIO NAL BUILDING 1.2.840.114 350.1.13.10 4.2.7.2.686 [id number] 201 [id number] [facility] 2022-11-06 00:00:00 2022-11-06 00:00:00 Telephone [facility] BUILDING 1.2.840.114 350.1.13.10 4.2.7.2.686 [id number] 201 [id number] [facility] 2022-10-30 13:00:00 2022-10-30 14:38:49 Outpatient R SEANZEYNEPRIGO [facility] [id number] [facility] 2022-10-30 13:00:00 2022-10-30 14:38:49 Office Visit SeanzeynepRigo [facility] 1.2.840.114 350.1.13.10 4.2.7.2.686 [id number] 201 [id number] [facility] 2022-10-12 00:00:00 2022-10-12 00:00:00 Orders Only Doctor Unassigned, [place] [facility] 1.2.840.114 350.1.13.10 4.2.7.2.686 [id number] [id number] [facility] 2022-10-12 00:00:00 2022-10-12 00:00:00 Telephone Melvin Yu [facility] 1.2.840.114 350.1.13.10 4.2.7.2.686 [id number] 205 [id number] [facility] 2022-10-04 13:55:41 2022-10-04 23:59:00 Outpatient R MELVIN YU [facility] [id number] [facility] 2022-10-04 13:55:41 2022-10-04 23:59:00 Hospital Encounter Melvin Yu [facility] 1.2840.114 350.1.13.10 4.2.7.2.686 [id number] [facility] 2022-09-26 00:00:00 2022-09-26 00:00:00 Orders Only Doctor Unassigned, [place] [facility] 1.0.114 350.1.13.10 4.2.7.2.686 [id number] [id number] [facility] 2022-09-21 14:45:00 2022-09-21 16:48:24 Outpatient R MELVIN YU [facility] [id number] [facility] 2022-09-21 14:45:00 2022-09-21 16:48:24 Office Visit Melvin Yu [facility] 1.0.114 350.1.13.10 4.2.7.2.686 [id number] [facility] 2022-09-21 00:00:00 2022-09-21 00:00:00 Telephone Aimee Melvin [facility] 1.2840.114 350.1.13.10 4.2.7.2.686 [id number] [facility] 2022-09-18 15:30:00 2022-09-18 16:40:12 Outpatient R RIGO RODRIGUEZ [facility] [id number] [facility] 2022-09-18 15:30:00 2022-09-18 16:40:12 Office Visit Rigo Rodriguez [facility] 1.20.114 350.1.13.10 4.2.7.2.686 [id number] 201 [id number] [facility] 2022-09-06 00:00:00 2022-09-06 00:00:00 Orders Only Doctor Unassigned, [place] [facility] 1.20.114 350.1.13.10 4.2.7.2.686 [id number] [facility] 2022-08-21 15:00:00 2022-08-21 15:59:22 Outpatient R RIGO RODRIGUEZ [facility] [id number] [facility] 2022-08-21 15:00:00 2022-08-21 15:59:22 Office Visit Rigo Rodriguez Rm1, Adc Surg Proc [facility] PROFESSIO [facility] 1..114 350.1.13.10 4.2.7.2.686 [id number] 201 [id number] [facility] 2022-08-21 15:00:00 2022-08-21 15:00:00 Outpatient R RIGO RODRIGUEZ [facility] [id number] [facility] 2022-08-21 00:00:00 2022-08-21 00:00:00 Case Management Rigo Rodriguez [facility] 1.0.114 350.1.13.10 4.2.7.2.686 [id number] [facility] 2022-08-21 00:00:00 2022-08-21 00:00:00 Orders Only Doctor Unassigned, [place] [facility] 1.20.114 350.1.13.10 4.2.7.2.686 [id number] [id number] [facility] 2022-07-15 00:00:00 2022-07-15 00:00:00 Patient Secure Msg Doctor Unassigned, [place] [facility] 1.20.114 350.1.13.10 4.2.7.2.686 [id number] [facility] 2022-07-10 14:15:00 2022-07-10 15:23:12 Outpatient R RIGO RODRIGUEZ [facility] [id number] [facility] 2022-07-10 14:15:00 2022-07-10 15:23:12 Office Visit [facility] BUILDING 1.2.840.114 350.1.13.10 4.2.7.2.686 [id number] 201 [id number] [facility] 2022-06-30 00:00:00 2022-06-30 00:00:00 Orders Only Doctor Unassigned, [place] [facility] 1.2.840.114 350.1.13.10 4.2.7.2.686 [id number] [facility] 2022-05-17 10:40:00 2022-05-17 10:53:26 [facility] [id number] [facility] 2022-05-17 10:40:00 2022-05-17 10:53:26 [facility] 1.2.840.114 350.1.13.10 4.2.7.2.686 [id number] [facility] 2022-05-17 10:40:00 2022-05-17 10:40:00 Out[facility] [id number] [facility] 2022-05-17 10:40:00 2022-05-17 10:40:00 Out[facility] [id number] [facility] 2022-05-17 10:40:00 2022-05-17 10:40:00 [facility] [id number] [facility] 2022-05-17 10:40:00 2022-05-17 10:40:00 Outpatient R [facility]UNO, [facility] [id number] [facility] 2022-05-17 00:00:00 2022-05-17 00:00:00 Orders Only Doctor Unassigned, [place] [facility] 1.2.840.114 350.1.13.10 4.2.7.2.686 [id number] [id number] [facility] 2022-05-01 14:30:00 2022-05-01 14:49:40 Outpatient R RIGO RODRIGUEZ [facility] [id number] [facility] 2022-05-01 14:30:00 2022-05-01 14:49:40 Office Visit Seanzeynep Rigo [facility] 1.2.840.114 350.1.13.10 4.2.7.2.686 [id number] 201 [id number] [facility] 2022-05-01 00:00:00 2022-05-01 00:00:00 Orders Only Doctor Unassigned, [place] [facility] 1.2.840.114 350.1.13.10 4.2.7.2.686 [id number] [id number] [facility] 2022-05-01 00:00:00 2022-05-01 00:00:00 Case Management Rigo Rodriguez [facility] BUILDING 1.2.840.114 350.1.13.10 4.2.7.2.686 [id number] [facility] 2022-04-17 13:15:00 2022-04-17 13:25:29 Outpatient R RIGO RODRIGUEZ [facility] [id number] [facility] 2022-04-17 13:15:00 2022-04-17 13:25:29 Office Visit Rigo Rodriguez [facility] BUILDING 1.2.840.114 350.1.13.10 4.2.7.2.686 [id number] 201 [id number] [facility] 2022-04-07 00:00:00 2022-04-07 00:00:00 Case Management Monica Fermin 1.284.114 350.1.13.10 4.2.7.2.686 [id number] [id number] [facility] 2022-04-03 15:15:00 2022-04-03 15:15:00 Outpatient R RIGO RODRIGUEZ [facility] [id number] [facility] 2022-04-03 00:00:00 2022-04-03 00:00:00 Telephone Rigo Rodriguez [facility] PROFESSIO NAL BUILDING 1.840.114 350.1.13.10 4.2.7.2.686 [id number] [facility] 2022-02-22 00:00:00 2022-02-22 00:00:00 Telephone [facility] 1.84.114 350.1.13.10 4.2.7.2.686 [id number] [facility] 2022-02-21 00:00:00 2022-02-21 00:00:00 Telephone Gorge [facility]iles [facility] 1..840.114 350.1.13.10 4.2.7.2.686 [id number] [id number] [facility] 2021-10-19 00:00:00 2021-10-19 00:00:00 OFFICE VISIT NEW PT LEVEL 3 STLMLC STLMLC [id number] [facility] 2021-09-12 00:00:00 2021-09-12 00:00:00 Orders Only Doctor Unassigned, [place] [facility] 1.2840.114 350.1.13.10 4.2.7.2.686 [id number] [id number] [facility] 2021-09-05 11:00:00 2021-09-05 11:40:45 Outpatient R KAIT GUEVARA [facility] [id number] [facility] 2021-09-05 11:00:00 2021-09-05 11:40:45 Office Visit Kait Guevara [facility] PROFESSIO NAL BUILDING 1.2.840.114 350.1.13.10 4.2.7.2.686 [id number] [facility] 2021-09-05 11:00:00 2021-09-05 11:40:45 Outpatient R KAIT GUEVARA [facility] [id number] [facility] 2021-08-30 00:00:00 2021-08-30 00:00:00 Telephone Rigo Rodriguez [facility] PROFESSIO NAL BUILDING 1.2.840.114 350.1.13.10 4.2.7.2.686 [id number] 201 [id number] [facility] 2021-08-25 00:00:00 2021-08-25 00:00:00 Patient Secure Msg Doctor Unassigned, [place] [facility] 1.2.840.114 350.1.13.10 4.2.7.2.686 [id number] [facility] 2021-08-23 00:00:00 2021-08-23 00:00:00 Telephone Gorge Aviles [facility] 1.2.840.114 350.1.13.10 4.2.7.2.686 [id number] [facility] 2021-08-22 14:30:00 2021-08-22 14:30:00 Outpatient R RIGO RODRIGUEZ [facility] [id number] [facility] 2021-08-22 00:00:00 2021-08-22 00:00:00 Telephone Angel Lyon [facility] 1.2.840.114 350.1.13.10 4.2.7.2.686 [id number] [facility] 2021-08-03 00:00:00 2021-08-03 00:00:00 (TEL) STLMLC STLMLC [id number] [facility] 2021-07-27 13:30:00 2021-07-27 13:30:00 Outpatient ADAM OTERO [facility] [id number] [facility] 2021-07-26 00:00:00 2021-07-26 00:00:00 Patient Secure Msg Doctor Unassigned, [place] [facility] 1.2.840.114 350.1.13.10 4.2.7.2.686 [id number] [facility] 2021-07-25 13:30:00 2021-07-25 13:30:00 Outpatient RIGO AHMADI [facility] [id number] [facility] 2021-07-22 00:00:00 2021-07-22 00:00:00 (TEL) STLC STLC [id number] [facility] 2021-07-20 14:30:00 2021-07-20 14:30:00 Outpatient MIS HENDRIX [facility] [id number] [facility] 2021-07-18 00:00:00 2021-07-18 00:00:00 Telephone [facility] BUILDING 1.2.840.114 350.1.13.10 4.2.7.2.686 [id number] [facility] 2021-07-13 10:30:00 2021-07-13 10:30:00 Outpatient MIS HENDRIX [facility] [id number] [facility] 2021-07-12 00:00:00 2021-07-12 00:00:00 Telephone Agnel Lyon [facility] 1..840.114 350.1.13.10 4.2.7.2.686 [id number] 044 [id number] [facility] 2021-06-30 00:00:00 2021-06-30 00:00:00 Telephone Angel Lyon [facility] 1.2840.114 350.1.13.10 4.2.7.2.686 [id number] 044 [id number] [facility] 2021-06-28 11:00:00 2021-06-28 12:23:31 Office Visit Angel Lyon [facility] OFFICE BUILDING 1.840.114 350.1.13.10 4.2.7.2.686 [id number] [facility] 2021-06-28 11:00:00 2021-06-28 12:23:31 Outpatient R BRANDONANGEL Adames [facility] [id number] [facility] 2021-06-28 11:00:00 2021-06-28 11:00:00 Outpatient R BRANDONANGEL Adames [facility] [id number] [facility] 2021-06-28 00:00:00 2021-06-28 00:00:00 Telephone Angel Lyon [facility] BUILDING 1..840.114 350.1.13.10 4.2.7.2.686 [id number] [id number] [facility] 2021-06-20 10:05:20 2021-06-20 23:59:00 Outpatient GORGE ODELL HOWARD [facility] [id number] [facility] 2021-06-20 10:05:20 2021-06-20 23:59:00 Hospital Encounter Gorge Aviles [facility] 1..840.114 350.1.13.10 4.2.7.2.686 [id number] [facility] 2021-06-20 00:00:00 2021-06-20 00:00:00 Outpatient GORGE ODELL HOWARD [facility] [id number] [facility] 2021-06-20 00:00:00 2021-06-20 00:00:00 Orders Only Doctor Unassigned, [place] [facility] 1.840.114 350.1.13.10 4.2.7.2.686 [id number] [id number] [facility] 2021-06-20 00:00:00 2021-06-20 00:00:00 Patient Secure Msg Doctor Unassigned, [place] [facility] 1.840.114 350.1.13.10 4.2.7.2.686 [id number] [facility] 2021-06-17 00:00:00 2021-06-17 00:00:00 Outpatient GORGE ODELL HOWARD [facility] [id number] [facility] 2021-06-16 09:45:00 2021-06-16 12:06:00 Outpatient RIGO AHMADI [facility] [id number] [facility] 2021-06-16 09:45:00 2021-06-16 12:06:00 Office Visit Rigo Rodriguez [facility] 1.840.114 350.1.13.10 4.2.7.2.686 [id number] 201 [id number] [facility] 2021-06-16 09:45:00 2021-06-16 09:45:00 Outpatient RIGO AHMADI [facility] [id number] [facility] 2021-06-16 00:00:00 2021-06-16 00:00:00 Orders Only Doctor Unassigned, [place] [facility] 1.840.114 350.1.13.10 4.2.7.2.686 [id number] [facility] 2021-06-10 00:00:00 2021-06-10 00:00:00 Telephone Gorge Aviles Germán [facility] 1..840.114 350.1.13.10 4.2.7.2.686 [id number] 092 [id number] [facility] 2021-06-10 00:00:00 2021-06-10 00:00:00 Telephone Brandonjason Angel [facility] BUILD[facility] 1..840.114 350.1.13.10 4.2.7.2.686 [id number] [facility] 2021-06-07 10:00:00 2021-06-07 10:58:11 Outpatient GORGE ODELL HOW[facility] [id number] [facility] 2021-06-07 10:00:00 2021-06-07 10:58:11 Office Visit Bradley Gorge Dunlap [facility] OFFICE BUILDING 1.2.840.114 350.1.13.10 4.2.7.2.686 [id number] [facility] 2021-06-07 10:00:00 2021-06-07 10:00:00 Outpatient GORGE ODELL HOWARD [facility] [id number] [facility] 2021-06-07 00:00:00 2021-06-07 00:00:00 Telephone Rigo Rodriguez [facility] 1..840.114 350.1.13.10 4.2.7.2.686 [id number] 201 [id number] [facility] 2021-05-30 00:00:00 2021-05-30 00:00:00 Telephone Camron [facility] ABILIO[facility] 1..840.114 350.1.13.10 4.2.7.2.686 [id number] 044 [id number] [facility] 2021-05-26 00:00:00 2021-05-26 00:00:00 Telephone Angel Lyon [facility] 1..840.114 350.1.13.10 4.2.7.2.686 [id number] [id number] [facility] 2021-05-25 11:00:00 2021-05-25 11:42:59 Outpatient R ANGEL LYON [facility] [id number] [facility] 2021-05-25 11:00:00 2021-05-25 11:42:59 [facility] BUILDING 1..840.114 350.1.13.10 4.2.7.2.686 [id number] [facility] 2021-05-25 11:00:00 2021-05-25 11:42:59 Outpatient R ANGEL LYON [facility] [id number] [facility] 2021-05-25 09:00:00 2021-05-25 10:00:00 Ancillary Visit Virginia Moody Craig L [facility] BUILDING 1..840.114 350.1.13.10 4.2.7.2.686 [id number] [facility] 2021-05-25 09:00:00 2021-05-25 09:00:00 Outpatient ASHIA SALVADOR [facility] [id number] [facility] 2021-05-25 09:00:00 2021-05-25 09:00:00 Outpatient ASHIA SALVADOR [facility] [id number] [facility] 2021-05-20 00:00:00 2021-05-20 00:00:00 [facility] 1..840.114 350.1.13.10 4.2.7.2.686 [id number] [facility] 2021-05-19 10:00:00 2021-05-19 12:22:10 Office Visit Rigo Rodriguez [facility] 1..840.114 350.1.13.10 4.2.7.2.686 [id number] [facility] 2021-05-19 10:00:00 2021-05-19 12:22:10 Outpatient RIGO AHMADI [facility] [id number] [facility] 2021-05-19 10:00:00 2021-05-19 12:22:10 Outpatient RIGO AHMADI [facility] [id number] [facility] 2021-05-19 10:00:00 2021-05-19 10:00:00 Outpatient RIGO AHMADI [facility] [id number] [facility] 2021-05-19 10:00:00 2021-05-19 10:00:00 Outpatient RIGO AHMADI [facility] [id number] [facility] 2021-05-19 00:00:00 2021-05-19 00:00:00 Orders Only Doctor Unassigned, [place] [facility] 1..840.114 350.1.13.10 4.2.7.2.686 [id number] [facility] 2021-05-16 10:40:00 2021-05-16 11:03:32 [id number] 2021-05-16 10:40:00 2021-05-16 11:03:32 [facility] [id number] [facility] 2021-05-16 10:40:00 2021-05-16 11:03:32 [facility] 1.2.840.114 350.1.13.10 4.2.7.2.686 [id number] [facility] 2021-05-16 10:40:00 2021-05-16 11:03:32 Outpatient R JULITO CARR [facility] [id number] [facility] 2021-05-04 00:00:00 2021-05-04 00:00:00 Telephone Rigo Rodriguez [facility] 1..840.114 350.1.13.10 4.2.7.2.686 [id number] [facility] 2021-05-02 14:00:00 2021-05-02 15:44:34 Outpatient R RIGO RODRIGUEZ [facility] [id number] [facility] 2021-05-02 14:00:00 2021-05-02 15:44:34 Office Visit Rigo Rodriguez [facility] 1.2.840.114 350.1.13.10 4.2.7.2.686 [id number] [facility] 2021-05-02 00:00:00 2021-05-02 00:00:00 Orders Only Doctor Unassigned, [place] [facility] 1..840.114 350.1.13.10 4.2.7.2.686 [id number] [facility] 2021-04-12 00:00:00 2021-04-12 00:00:00 (TEL) STLMLC STLMLC [id number] [facility] 2021-04-12 00:00:00 2021-04-12 00:00:00 OFFICE VISIT ESTAB PT LEVEL 4 STLMLC STLMLC [id number] [facility] 2021-03-24 00:00:00 2021-03-24 00:00:00 (TEL) STLMLC STLMLC [id number] [facility] 2021-02-24 00:00:00 2021-02-24 00:00:00 (TEL) STLMLC STLMLC [id number] [facility] 2021-02-21 00:00:00 2021-02-21 00:00:00 (TEL) STLMLC STLMLC [id number] [facility] 2021-02-18 00:00:00 2021-02-18 00:00:00 (TEL) STLMLC STLMLC [id number] [facility] 2021-02-17 00:00:00 2021-02-17 00:00:00 OFFICE VISIT EST PT LEVEL 3 STLMLC STLMLC [id number] [facility] 2021-02-07 00:00:00 2021-02-07 00:00:00 OFFICE VISIT EST PT LEVEL 3 STLMLC STLMLC [id number] [facility] 2021-02-07 00:00:00 2021-02-07 00:00:00 (TEL) STLMLC STLMLC [id number] [facility] 2021-01-19 00:00:00 2021-01-19 00:00:00 (TEL) STLMLC STLMLC [id number] [facility] 2021-01-17 00:00:00 2021-01-17 00:00:00 (TEL) STLMLC STLMLC [id number] [facility] 2021-01-13 00:00:00 2021-01-13 00:00:00 OFFICE VISIT EST PT LEVEL 3 STLMLC STLMLC [id number] [facility] 2021-01-03 00:00:00 2021-01-03 00:00:00 (TEL) STLMLC STLMLC [id number] [facility] 2020-12-29 00:00:00 2020-12-29 00:00:00 (TEL) STLMLC STLMLC [id number] [facility] 2020-12-24 00:00:00 2020-12-24 00:00:00 (TEL) STLMLC STLMLC [id number] [facility] 2020-11-22 00:00:00 2020-11-22 00:00:00 (TEL) STLMLC STLMLC [id number] [facility] 2020-11-17 00:00:00 2020-11-17 00:00:00 (TEL) STLMLC STLMLC [id number] [facility] 2020-10-21 00:00:00 2020-10-21 00:00:00 PREV VISIT EST AGE 18-39 STLMLC STLMLC [id number] [facility] 2020-09-24 00:00:00 2020-09-24 00:00:00 Outpatient STLMLC STLMLC [id number] [facility] 2020-09-20 00:00:00 2020-09-20 00:00:00 Outpatient STLMLC STLMLC [id number] [facility] 2020-09-14 00:00:00 2020-09-14 00:00:00 Outpatient STLMLC STLMLC [id number] [facility] 2020-09-13 00:00:00 2020-09-13 00:00:00 Outpatient STLMLC STLMLC [id number] [facility] 2020-08-26 00:00:00 2020-08-26 00:00:00 Outpatient STLMLC STLMLC [id number] [facility] 2020-07-30 00:00:00 2020-07-30 00:00:00 Outpatient STLMLC STLMLC [id number] [facility] 2020-07-26 00:00:00 2020-07-26 00:00:00 Outpatient STLMLC STLMLC [id number] [facility] 2020-07-20 00:00:00 2020-07-20 00:00:00 Outpatient STLMLC STLMLC [id number] [facility] 2020-07-13 00:00:00 2020-07-13 00:00:00 Outpatient STLMLC STLMLC [id number] [facility] 2020-07-06 00:00:00 2020-07-06 00:00:00 Outpatient STLMLC STLMLC [id number] [facility] 2020-07-06 00:00:00 2020-07-06 00:00:00 Outpatient STLMLC STLMLC [id number] [facility] 2020-06-30 00:00:00 2020-06-30 00:00:00 Outpatient STLMLC STLMLC [id number] [facility] 2020-06-24 00:00:00 2020-06-24 00:00:00 Outpatient STLMLC STLMLC [id number] [facility] 2020-06-15 00:00:00 2020-06-15 00:00:00 Outpatient STLMLC STLMLC [id number] [facility] 2020-05-24 00:00:00 2020-05-24 00:00:00 Outpatient STLMLC STLMLC [id number] [facility] 2020-05-24 00:00:00 2020-05-24 00:00:00 Outpatient STLMLC STLMLC [id number] [facility] 2020-05-20 00:00:00 2020-05-20 00:00:00 Outpatient STLMLC STLMLC [id number] [facility] 2020-04-27 00:00:00 2020-04-27 00:00:00 Outpatient STLMLC STLMLC [id number] [facility] 2020-04-13 00:00:00 2020-04-13 00:00:00 Outpatient STLMLC STLMLC [id number] [facility] 2020-03-16 00:00:00 2020-03-16 00:00:00 Outpatient STLMLC STLMLC [id number] [facility] 2020-03-15 00:00:00 2020-03-15 00:00:00 Outpatient STLMLC STLMLC [id number] [facility] 2020-03-12 00:00:00 2020-03-12 00:00:00 Outpatient STLMLC STLMLC [id number] [facility] 2020-02-27 13:30:00 2020-02-27 13:30:00 Outpatient JUAN RAMON ZHU [facility] [id number] [facility] 2020-02-09 13:00:00 2020-02-09 13:00:00 Outpatient TIGRE COBB [facility] [id number] [facility] 2020-02-09 00:00:00 2020-02-09 00:00:00 Telephone Bruno [facility] 1.2.840.114 350.1.13.10 4.2.7.2.686 [id number] 2020-02-09 00:00:00 2020-02-09 00:00:00 [facility] 1.2.840.114 350.1.13.10 4.2.7.2.686 [id number] [facility] 2020-02-04 00:00:00 2020-02-04 00:00:00 Outpatient STLMLC STLMLC [id number] [facility] 2020-01-26 00:00:00 2020-01-26 00:00:00 Outpatient STLMLC STLMLC [id number] [facility] 2020-01-21 00:00:00 2020-01-21 00:00:00 Outpatient STLMLC STLMLC [id number] [facility] 2019-12-04 00:00:00 2019-12-04 00:00:00 Orders Only Doctor Unassigned, [place] [facility] 1.2.840.114 350.1.13.10 4.2.7.2.686 [id number] [facility] 2019-12-03 00:00:00 2019-12-03 00:00:00 Outpatient STLMLC [facility]C [id number] [facility] 2019-11-27 09:24:16 2019-11-27 09:39:16 [place] Department Supervisor Visit 1, Adc Lab Juan Ramon Cam [facility] 1.2.840.114 350.1.13.10 4.2.7.2.686 [id number] [facility] 2019-11-27 09:00:00 2019-11-27 09:00:00 Outpatient R [facility] [id number] [facility] 2019-11-21 09:17:20 2019-11-21 10:37:48 Office Visit Juan Ramon Cam [facility] 1.2.840.114 350.1.13.10 4.2.7.2.686 [id number] 2019-11-21 09:17:20 2019-11-21 10:37:48 Office Visit Juan Ramon Cam [facility] 1.2.840.114 350.1.13.10 4.2.7.2.686 [id number] [facility] 2019-11-21 10:00:00 2019-11-21 10:00:00 Outpatient R JUAN RAMON CAM [facility] [id number] [facility] 2019-11-21 00:00:00 2019-11-21 00:00:00 Orders Only Doctor Unassigned, [place] [facility] 1.2.840.114 350.1.13.10 4.2.7.2.686 [id number] [facility] 2019-11-21 00:00:00 2019-11-21 00:00:00 Telephone Juan Ramon Cam [facility] 1.2.840.114 350.1.13.10 4.2.7.2.686 [id number] [facility] 2019-11-04 00:00:00 2019-11-04 00:00:00 Outpatient STLMLC ST[facility]C [id number] [facility] 2019-10-27 00:00:00 2019-10-27 00:00:00 Outpatient STLMLC [facility]C [id number] [facility] 2019-10-21 11:55:00 2019-10-21 11:55:00 [facility] [id number] [facility] 2019-10-06 10:54:00 2019-10-06 10:54:00 Outpatient [facility] [id number] [facility] 2019-09-29 14:54:00 2019-09-29 14:54:00 Outpatient [facility] [id number] [facility] 2019-09-23 16:20:00 2019-09-23 16:20:00 Outpatient [facility] [id number] [facility] 2019-09-22 09:21:00 2019-09-22 09:21:00 Outpatient [facility] [id number] [facility] 2019-09-15 10:54:09 2019-09-15 11:14:09 Telemedici ne Visit Julito Carr [facility] 1.2.840.114 350.1.13.10 4.2.7.2.686 [id number] [facility] 2019-09-15 10:40:00 2019-09-15 10:40:00 Outpatient R JULITO CARR [facility] [id number] [facility] 2019-09-15 00:00:00 2019-09-15 00:00:00 Telephone Julito Carr [facility] 1.2.840.114 350.1.13.10 4.2.7.2.686 [id number] [facility] 2019-08-13 11:24:00 2019-08-13 11:24:[address] [facility] [facility] [id number] [facility] 2019-08-05 13:28:00 2019-08-05 13:28:[address] [facility] [facility] [address] [facility] [id number] [facility] 2019-07-09 13:22:00 2019-07-09 13:22:00 [facility] [id number] [facility] 2019-06-11 11:40:00 2019-06-11 11:40:[address] [facility] [facility] [id number] [facility] 2019-06-10 14:34:00 2019-06-10 14:34:[address] [facility] [id number] [facility] 2019-05-28 15:39:00 2019-05-28 15:39:[address] [facility] [facility] [id number] [facility] 2019-05-19 14:49:00 2019-05-19 14:49:[address] [facility] [facility] [id number] [facility] 2019-04-16 10:05:07 2019-05-15 09:52:11 Ancillary Visit Therapist, Adc Occup ElizaldeAshia pate Leta [facility] 1.2.840.114 350.1.13.10 4.2.7.2.686 [id number] [facility] 2019-05-06 14:40:00 2019-05-06 14:40:00 [address] [facility] [facility] [id number] [facility] 2019-05-01 15:51:00 2019-05-01 15:51:00 [facility] [facility] [address] [facility] [id number] [facility] 2019-04-16 10:00:00 2019-04-16 10:00:00 Outpatient [facility] [id number] [facility] 2019-03-10 10:00:00 2019-03-10 10:00:00 [facility] [id number] [facility] 2019-03-07 15:59:00 2019-03-07 15:59:00 [facility] [id number] [facility] 2019-02-12 16:09:00 2019-02-12 16:09:00 [facility] [address] [facility] [id number] [facility] 2019-02-10 13:08:00 2019-02-10 13:08:00 Outpatient [facility] [id number] [facility] 2019-02-06 11:00:00 2019-02-06 11:00:00 [facility] [id number] [facility] 2019-02-06 08:00:00 2019-02-06 08:00:00 [facility] [id number] [facility] 2019-01-24 10:30:00 2019-01-24 10:30:00 [facility] [id number] [facility] 2018-11-15 15:32:00 2018-11-15 15:32:[address] [facility] [id number] 2018-11-07 10:30:00 2018-11-07 10:30:[address] [facility] [facility] [id number] [facility] 2018-10-31 09:00:00 2018-10-31 09:00:[address] [facility] [facility] [id number] [facility] 2018-10-14 16:09:00 2018-10-14 16:09:00 [facility] [address] [facility] [id number] [facility] 2018-09-27 16:37:00 2018-09-27 16:37:00 [facility] [address] [facility] [id number] [facility] 2018-09-11 09:24:37 2018-09-11 10:10:44 Office Visit Julito Carr [facility] 1.2.840.114 350.1.13.10 4.2.7.2.686 [id number] [facility] 2018-07-12 11:39:00 2018-07-12 11:39:00 [facility] [address] [facility] [id number] [facility] 2018-07-11 10:30:00 2018-07-11 10:30:00 Out[facility] [address] [facility] [id number] [facility] 2018-05-17 14:08:00 2018-05-17 14:08:00 Out[facility] [address] [facility] [id number] [facility] 2018-05-10 13:44:00 2018-05-10 13:44:00 Out[facility] [address] [facility] [id number] [facility] 2018-02-26 12:00:00 2018-02-26 12:00:00 Outpatient [facility] [id number] [facility] 2018-02-01 08:45:00 2018-02-01 08:45:00 [facility] [id number] [facility] 2017-08-31 08:30:00 2017-08-31 08:30:00 [facility] [id number] [facility] 2017-08-21 11:15:00 2017-08-21 11:15:00 Outpatient [facility] [id number] [facility] 2001-02-15 00:00:00 2001-02-15 00:00:00 Orders Only Doctor Unassigned, [place] [facility] 1.2.840.114 350.1.13.10 4.2.7.2.686 [id number] [facility] 1999-02-12 00:00:00 1999-02-12 00:00:00 Orders Only Doctor Unassigned, [place] [id number] 350.1.13.10 4.2.7.2.686 [id number] [facility] Results Test Description Test Time Test Comments Results Resul t Comments Source DME/SUPPLY JUSTIFICATION 2024-05-0 4 14:11:47 [facility] an unspecified provider. [id number] 20:58:02* Test Item Value Reference Range Interpretation Comme nts WBC (test code = 6690-2) 12.57 4.30-11.10 H RBC (test code = 789-8) 5.09 3.93-5.25 HGB (test code = 718-7) 11.2 g/dL 11.6-15.0 L HCT (test code = 4544-3) 36.2 % 35.7-45.2 MCV (test code = 787-2) 71.1 fL 80.6-95.5 L MCH (test code = 785-6) 22.0 pg 25.9-32.8 L MCHC (test code = 786-4) 30.9 g/dL 31.6-35.1 L RDW-SD (test code = 62803-1) 42.5 fL 39.0-49.9 RDW-CV (test code = 788-0) 16.7 % 12.0-15.5 H PLT (test code = 777-3) 528 166-358 H MPV (test code = 06681-6) 9.3 fL 9.5-12.9 L NRBC/100 WBC (test code = 5225976642) 0.0 0.0-10.0 NRBC x10^3 (test code = 7036532336) See_Comment [Automated messa ge] The system which generated this result transmitted reference range: 10*3/?L. The reference range was not used to interpret this result as normal/abnormal. GRAN MAT (NEUT) % (test code = 770-8) 74.7 % IMM GRAN % (test code = 6189419355) 0.40 % LYMPH % (test code = 736-9) 16.7 % MONO % (test code = 5905-5) 6.9 % EOS % (test code = 713-8) 0.6 % BASO % (test code = 706-2) 0.7 % GRAN MAT x10^3(ANC) (test code = 7543110183) 9.38 10*3/uL 1.88-7.09 H IMM GRAN x10^3 (test code = 8423900328) 0.05 10*3/uL 0.00-0.06 LYMPH x10^3 (test code = 731-0) 2.10 10*3/uL 1.32-3.29 MONO x10^3 (test code = 742-7) 0.87 10*3/uL 0.33-0.92 EOS x10^3 (test code = 711-2) 0.08 10*3/uL 0.03-0.39 BASO x10^3 (test code = 704-7) 0.09 10*3/uL 0.01-0.07 H Lab Interpretation (test code = 28567-9) [facility]normal [facility] [id number] 17:47:35EXAM: XR CHEST 1 VW HISTORY: 28 years-old Female; shunt series COMPARISON: None FINDINGS: Lines/Devices: A WE[employer] SERVICE FLOORPERSON shunt is seen coursing from the right neck, inferiorlyacross the chest, and outside the bqgqv-kr-beyf. No evident kinks or breaksare identified along its course. Lungs: The lung volumes aremoderately underinflated with resultantcongestion. No focal opacities are present. No pleural abnorm alities aredetected. Heart/Mediastinum: The cardiomediastinal silhouette appears normal. Bones and soft tissues: No acute osseous findings are detected. [facility] wo [id number] 17:25:21CT HEAD WO CONTRAST HISTORY: Headache, cough COMPARISON: CT head 06/20/2021 TECHNIQUE: Noncontrast CT images of the head with multiplanar reformats. FINDINGS: Stable position of right parietal approach ventriculoperitoneal shunt withtip terminating in the posterior body of the right lateral ventricle.Abandoned shunt catheter through the same delmar hole terminating in the leftthalamocapsular junction inferiorly. Additional catheters terminatingwithin the fourth ventricles are partially. Prior suboccipital craniectomyand cerebellar tonsillar descent, partially imaged. Slitlike configuration of the third and lateral ventricles and minimalprominence of left temporal horn is unchanged. Dilation of both ventricleis also unchanged. Dilation of the fourth ventricle is also unchanged. Linear hypodensity at the right frontal lobe extending to the caudate headventricle related to encephalomalacia along the removed shunt catheter isagain noted. No intracranial hemorrhage, edema, mass-effect, midline shift or pathologicextra axial fluid collection is appreciated. ? No ?new parenchymal attenuation abnormality. The osorio-white matterdifferentiation is otherwise preserved. The calvarium and skull base are intact. The mastoid air cells are clear.Near complete opacification of sphenoid sinuses.[facility] 1 [id number] 17:09:32XR ABDOMEN 1 VW COMPARISON: No comparison available Ordering provider: LISA JULIAN CLINICAL INDICATIONS: shunt series TECHNIQUE: Appropriate radiographic technique and conforming to ALARA FINDINGS: ? The ventriculoperitoneal shunt catheter distal tip is in the right upperquadrant of the abdomen.Marked skeletal deformity and severe kyphoscoliosis with distortion of theabdomen.[facility] DME/SUPPLY [id number] 17:12:12Ordered by an unspecified provider. [facility] [id number] 17:00:18Ordered by an unspecified provider.[facility] [id number] 13:06:05Or[facility] by an unspecified provider[facility] [id number] 13:06:00Ordered by an unspecified provider.[facility] JUSTIFICATION 2023-11-05 18:15:01Ordered by an unspecified provider.[facility] [id number] 18:49:06Ordered by an unspecified provider.[facility]IF[facility] 2023-10-19 18:32:19Ordered by an unspecified provider.[facility] [id number] 16:17:52Ordered by an unspecified provider.[facility] 2023-10-17 16:17:50Ordered by an unspecified provider.[facility] Notes Date/Time Note Provider Source 2024-06-17 10:50:02 Forms placed in providers folder to sign Dora Desir MA 06/17/2024 10:50 AM Dora Desir MA [facility] 2024-06-17 10:35:18 Images from the original note were not included. Forms placed in nurse folder. Apple Cutler [facility] 2024-06-04 14:22:06 DME orders placed via parachute with [employer]. For further status updates please contact them at [phone].MassHousingt message sent. Vee Hill MA [facility] 2024-05-21 11:45:00 Images from the original note were not included. Venipuncture collection performed by clean technique on the left anticubitus. Total of 1 attempts were made. Slight pressure and a bandage/dressing were applied to the site(s). The patient experienced no complications. The following specimens were processed according to instructions and sent to [facility] laboratories per lab order on 05/21/2024: LT BLUE SST 3 RED LAV 1 PPT DK GREEN (LiHep) DK GREEN (SodH) OSORIO DK BLUE (K2) DK BLUE (S) ACD Blood Culture NIPT/NTD Pt could not void. [facility] 2024-05-20 16:07:15 Forms signed and faxed, confirmation received Dora Desir MA 05/20/2024 4:07 PM Dora Desir MA [facility] 2024-05-15 17:10:53 Forms placed in providers folder to review and sign Dora Desir MA 05/15/2024 5:12 PM Dora Desir MA [facility] 2024-05-15 11:59:54 Images from the original note were not included. Forms placed in nurse folder. Apple Cutler [facility] 2024-05-13 23:42:20 1. Anxiety - hydrOXYzine 10 mg/5 mL solution; Take 5 mL by mouth at bedtime as needed for Itching or Anxiety. Dispense: 120 mL; Refill: 2 2. Other insomnia - hydrOXYzine 10 mg/5 mL solution; Take 5 mL by mouth at bedtime as needed for Itching or Anxiety. Dispense: 120 mL; Refill: 2 [facility] 2024-05-13 11:56:00 Rx request for Hydroxyzine 10mg/5ml, take 5ml at HS. Medication is a new prescription to our office. Routing to provider for review. Keegan Montes RN [facility] 2024-05-13 10:26:11 Images from the original note were not included. Apple Cutler [facility] 2024-05-05 15:38:43 Please view encounter 04.30.2024. PA has been submitted. Marilyn Lopez MA [facility] 2024-05-05 13:27:15 Images from the original note were not included. Claudia Jimenez [facility] 2024-05-05 10:00:05 Forms faxed 04/10/24 , confirmation received Dora Desir MA 05/05/2024 10:00 AM Dora Desir MA [facility] 2024-05-01 20:15:43 Pharmacy called to tube inhaler, wheelchair van staff bedside. Jannie Porras RN [facility] 2024-05-01 18:36:23 Images from the original note were not included. CARE MANAGEMENT Care Coordinators/Social Workers/CM Specialists/Utilization Review/Patient Placement & Transfer Center 05/01/2024 6:36 PM Transportation arranged via [facility] ETA 1hour Patient name: Gerard Eddy Discharge date: 05/01/2024 Reason for voucher: Discharge from ED. Pt requires wheelchair transportation. Voucher #: [id number] SW met with pt face to face Pt is AOX 4. Pt confirms family will be home on arrival. Pt verbally confirmed address on facesheet: [address] [place] [id number] Joe Gottlieb RN, BSN Care Management [address] [address] phone [phone] fax [email or web address] Joe Gottlieb RN [facility] 2024-05-01 18:30:10 garage worker contacted for help with potentially transporting pt. Home d/t being d/c home. Pt. Normally can travel via wheelchair, wheelchair was not brought from [facility]. Marce Alonzo RN [facility] 2024-05-01 18:29:06 Pt colostomy bag emptied and brief changed per request. AHT [facility] 2024-05-01 17:45:00 Pt requesting headache medication and cough medication. Pending orders. T [facility] 2024-05-01 17:37:04 Neurosurgery paged for update, states they will be down in dept at 6pm for updating pt. Pt. Made aware. T [facility] 2024-05-01 15:55:28 Per NSG, pt. Okay to eat, provided food at this time per request. Call light in reach, pt. Educated on use, no further needs to address at this time. Pending lab results. T [facility] 2024-05-01 15:14:36 NSG bedside. T [facility] 2024-05-01 15:00:00 Gerard Eddy is a 28 year old female received to room 116 as a transfer from [facility] for c/o headache x a few days with a pmh of WELL SERVICE FLOORPERSON shunt. Pt. CT head done and XR shunt series done at [facility], pending NSG review. Pt. 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 Pt. Presents with cough/congestion, denies fever/chills/sore throat. Pt. Aaox4, respirations even/unlabored, NAD Noted to pt. T [facility] 2024-05-01 14:55:07 [facility] Transfer to ED Note The patient was accepted as a transfer from [facility] accepted by Neurosurgery. I briefly reviewed chart as applicable. Vital signs reviewed. Summary: Gerard Eddy is a 28 year old female presenting with chief complaint of REFERRAL . Brief clinical summary: the patient has history of WE[employer] SERVICE FLOORPERSON shunt, presented to outside ED with complaints of headache for 3-4 days. Imaging does not show acute change on WELL SERVICE FLOORPERSON shunt series. The patient was accepted by NSGY for further evaluation. Acute concern(s): none Vitals: 05/01/24 1452 BP: (!) 140/97 Pulse: 78 Resp: 18 Temp: 36.7 ?C (98 ?F) TempSrc: Oral SpO2: 98% Weight: 45.4 kg (100 lb) Height: 1.219 m (4') Results: Results for orders placed or performed in visit on 04/08/24 Iron Panel Collection Time: 04/08/24 2:47 PM Result Value Ref Range IRON 382 (H) 50 - 160 ug/dL TIBC 430 (H) 250 - 410 ug/dL % FE SAT 89 (H) 20 - 50 % Cbc with Diff Collection Time: 04/08/24 2:47 PM Result Value Ref Range WBC 5.41 4.30 - 11.10 10*3/?L RBC 5.01 3.93 - 5.25 10*6/?L HGB 11.1 (L) 11.6 - 15.0 g/dL HCT 38.2 35.7 - 45.2 % MCV 76.2 (L) 80.6 - 95.5 fL MCH 22.2 (L) 25.9 - 32.8 pg MCHC 29.1 (L) 31.6 - 35.1 g/dL RDW-SD 55.7 (H) 39.0 - 49.9 fL RDW-CV 20.3 (H) 12.0 - 15.5 % PLT 550 (H) 166 - 358 10*3/?L MPV 9.1 (L) 9.5 - 12.9 fL NRBC/100 WBC 0.0 0.0 - 10.0 /100 WBCs NRBC x10 3 <0.01 10*3/?L GRAN MAT (NEUT) % 71.6 % IMM GRAN % 0.20 % LYMPH % 18.7 % MONO % 7.8 % EOS % 0.4 % BASO % 1.3 % GRAN MAT x10 3 (ANC) 3.88 1.88 - 7.09 10*3/uL IMM GRAN x10 3 <0.03 0.00 - 0.06 10*3/uL LYMPH x10 3 1.01 (L) 1.32 - 3.29 10*3/uL MONO x10 3 0.42 0.33 - 0.92 10*3/uL EOS x10 3 <0.03 (L) 0.03 - 0.39 10*3/uL BASO x10 3 0.07 0.01 - 0.07 10*3/uL Comp. Metabolic Panel (69418) Collection Time: 04/08/24 2:47 PM Result Value Ref Range NA 138 135 - 145 mmol/L K 4.1 3.5 - 5.0 mmol/L CL 107 98 - 108 mmol/L CO2 TOTAL 19 (L) 23 - 31 mmol/L AGAP 12 2 - 16 BUN 12 7 - 23 mg/dL GLUCOSE 112 (H) 70 - 110 mg/dL CREATININE 0.40 (L) 0.50 - 1.04 mg/dL TOTAL BILI 0.5 0.1 - 1.1 mg/dL CALCIUM 9.8 8.6 - 10.6 mg/dL T PROTEIN 7.1 6.3 - 8.2 g/dL ALBUMIN 4.6 3.5 - 5.0 g/dL ALK PHOS 105 34 - 122 U/L ALTv 22 5 - 35 U/L AST(SGOT) 20 13 - 40 U/L eGFR 138.5 mL/min/1.73m2 Lipid Panel (58114)(Total Cholesterol, Triglycerides, HDL) Collection Time: 04/08/24 2:47 PM Result Value Ref Range CHOL 161 120 - 200 mg/dL HDL 100 >50 mg/dL HDLC RATIO 1.6 <=4.5 TRIG 53 30 - 170 mg/dL LDL CHOL 50 <=160 mg/dL VLDL 11 5 - 60 mg/dL Thyroid Stimulating Hormone Collection Time: 04/08/24 2:47 PM Result Value Ref Range TSH 1.97 0.45 - 4.70 mIU/L Free T4 Collection Time: 04/08/24 2:47 PM Result Value Ref Range FREE T4 1.40 0.78 - 2.20 ng/dL Vitamin D, 25-OH Collection Time: 04/08/24 2:47 PM Result Value Ref Range VIT D 25OH 22 (L) 25 - 80 ng/mL Glycosylated Hemoglobin (A1C) Collection Time: 04/08/24 2:47 PM Result Value Ref Range HGB A1C 4.4 4.0 - 5.7 % Lab results reviewed as applicable XR Chest 1 vw Result Date: 05/01/2024 1. A WELL SERVICE FLOORPERSON shunt is seen coursing from the right neck, inferiorly across the chest, and outside the bladg-ll-odha without evident kinks or breaks along its course. 2. No acute cardiopulmonary abnormality. Preliminary Report Dictated by Resident: Godwin Mora I, Jeromy Del Real MD., have reviewed this study and agree with the above report. CT Head wo contrast Result Date: 05/01/2024 Grossly unchanged exam with no acute intracranial finding. Stable position of the right parietal approach ventriculoperitoneal shunt and abandoned catheter. Additional posterior fossa shunts including unknown discontinuous shunt. No complication is identified. Unchanged appearance of the ventricular system with slitlike appearance of the lateral and third ventricle and dilated appearance of the fourth ventricle. Preliminary Report Dictated by Resident: Anselmo Borges I, Nimco Dasilva MD., have reviewed this study and agree with the above report. XR Abdomen 1 vw Result Date: 05/01/2024 Ventriculoperitoneal shunt catheter distal tip in the right upper quadrant of the abdomen HS:Y Available imaging results reviewed as applicable Plan: Per accepting team. Please see documentation accepting service for additional clinical information. Except as stated above I was not directly involved in the initial patient evaluation (see OSH documentation) nor continued care in this Emergency Department including admission/inpatient order(s). Osman Patterson MD Clinical Director Of Restaur[employer] of Emergency Medicine [facility] - Emergency Department [employer] EMERGENCY PHYSICIAN STAFF [facility] 2024-05-01 14:51:59 Gerard Eddy is a 28 year old female presents to ED triage with chief compliant of HINES. Pt states she has had it for a few days- pt has a hx of WELL SERVICE FLOORPERSON shunts. AAOx4. Skin warm and dry. VSS. RR E/U. NAD noted. Neurosurgery aware of patiens arrival. Roomed for eval Kimberli Dominguez RN [facility] 2024-05-01 14:13:41 PA has been submitted via Cover My Meds. Keegan Montes RN [facility] 2024-05-01 13:46:02 Patient admitted to [facility] for diagnosis of headache Patient agrees to admission, discussed plan of care with patient and family. Patient is awake, alert, oriented, resp reg unlabored. No adverse reaction to medications administered while in ED Belongings with patient to unit Sharmila Lim RN [facility] 2024-05-01 13:04:19 Report called to Kimberli VALENZUELA. Zoe Orr RN [facility] 2024-05-01 11:23:01 Back from imaging. T [facility] 2024-05-01 11:13:25 To imaging. T [facility] 2024-05-01 10:28:00 Patient came in with headaches and cough since 3-4 days, states she has a shunt. Xin Melendez RN [facility] 2024-05-01 09:10:24 I saw chart and agree, that is not a clinic issue. Thank you. PN-NEUROLOGY STAFF [facility] 2024-05-01 09:00:27 Dr Aviles please review. We spoke to pt who stated that she feels like her shunt is full and cannot relieve pressure. She has been advised to go to ED in [place] for a Neurology and possible Neuro-surgery consult. Dary Levi RN [facility] 2024-05-01 08:58:42 Gerard Eddy is a 28 year old female Patient has been sick last few days, states she has a lot of pressure in her head. Patient also has [place] Holes. She is wanting to know what she needs to do. Please advise, Bhavya Thomas [facility] 2024-04-30 10:16:25 Images from the original note were not included. Claudia Jimenez [facility] 2024-04-30 08:43:09 Appointment scheduled for today. Apple Cutler [facility] 2024-04-29 22:59:33 Can offer telehealth or urgent care, if unable to come in [facility] 2024-04-29 14:13:46 Rerouting to provider for review. Keegan Montes RN [facility] 2024-04-28 09:02:07 Called and spoke to patient, due to patient being sick I scheduled her an appointment for this . Patient can't come in sooner due to scheduling a ride, patient asked if she can schedule a Telethealth visit Will route to the provider to review. Dora Desir MA 04/28/2024 9:06 AM Dora Desir MA [facility] 2024-04-28 08:14:15 Gerard Eddy is a 28 year old female Patient is calling requesting a call back from the provider or nurse regarding a TeleHealth visit if possible. Patient states she canceled her appointment for 3.24.25 to 3.31.25 due to having cold-like symptoms, coughing, sneezing - x1wk. Patient is inquiring if the provider will allow a TeleHealth visit for today. Please advise Don Eddy [facility] 2024-04-10 12:38:23 Blood pressure medicine Metoprolol 10mg/ml - take 10ml twice a day Losartan 25 mg twice a day This should be the regimen , is this different from what you are taking? [facility] 2024-04-09 15:39:34 Are you taking your medication Increase losartan 25 mg daily to 2 tablets which equals 50 mg twice a day Continue to monitor the blood pressure with goal of less than 140/90 And if it has anything close 100/70 unless, reach out back [facility] 2024-04-09 08:36:45 Forms have been prefilled and placed in providers folder for signature. RBER OPERATOR Keegan Montes RN [facility] 2024-04-08 16:24:54 Medical supplies form received please review and complete. RBER OPERATOR Paco Reynolds [facility] 2024-04-08 15:30:00 Images from the original note were not included. Venipuncture collection performed by clean technique on the left anticubitus. Total of 1 attempts were made. Slight pressure and a bandage/dressing were applied to the site(s). The patient experienced no complications. The following specimens were processed according to instructions and sent to [facility] laboratories per lab order on 04/08/2024 : LT BLUE SST 2 RED LAV 2 PPT DK GREEN (LiHep) DK GREEN (SodH) OSORIO DK BLUE (K2) DK BLUE (S) ACD Blood Culture NIPT/NTD Pt unable to void [facility] 2024-04-04 10:17:41 Images from the original note were not included. Notes: venlafaxine XR 37.5 mg 24 hr capsule Sig: Take 1 capsule by mouth in the morning. Disp: 30 capsule Refills: 0 Start: 03/31/2024 Class: eRX For: Depression, unspecified depression type Last ordered: 5 months ago (10/09/2023) by Lexi Borrero MD Psychiatry: Antidepressants Trqxey2104/01/2024 09:45 AM Protocol Details Manual Review: Verify no changes in dose in the last 3 months Valid encounter within last 12 months To be filled at: [facility] [place], [place] - [address] AT [address] Last Refilled: left pharmacy a message-calls kept disconnecting. Recent Visits Date Type Provider Dept 01/08/24 Office Visit Lexi Borrero MD [facility] 10/09/23 Office Visit Lexi Borrero MD [facility] Showing recent visits within past 540 days with a meds authorizing provider and meeting all other requirements Future Appointments Date Type Provider Dept 04/08/24 Appointment Lexi Borrero MD [facility] Showing future appointments within next 150 days with a meds authorizing provider and meeting all other requirements RBER OPERATOR Joslyn Gonsalves MA [facility] 2024-02-29 08:08:50 Digiscend message was sent. LIEL Montes RN [facility] 2024-02-28 20:52:07 To clarify - your dose is 10mls = 100 mg and taken bid per the old bottle from your previous doctor and this would be for diagnosis of tachycardia and HTN But the script script from November has been a reduced dose of 1ml bid which is 10 mg bid. If that is what you have been on, 100 mg bid of metoprolol likely could be a very high dose for you. My recommendation between 2-5 mls twice daily could be a better safe point, if that is okay with you , and titrate up if indicated [facility] 2024-02-28 11:16:36 Per chart review pt has been on this medication since 12/04/2023: metoprolol 10 mg/mL 100 mL 0 12/04/2023 -- No Sig: Take 1 mL by mouth in the morning and 1 mL in the evening. Sent to pharmacy as: metoprolol 10 mg/mL Class: eRX Route: Oral Order: [id number] Date/Time Signed: 12/04/2023 23:41 E-Prescribing Status: Receipt confirmed by pharmacy (12/04/2023 11:41 PM CDT) MyChart message has been sent to clarify dosage. RBER OPERATOR Keegan Montes RN [facility] 2024-02-28 09:31:57 Gerard Eddy is a 28 year old female would like to speak with nurse sh states the dosage for metoprolol 10 mg/mL is incorrect Please advise [phone] (home) LIEL Carvajal [facility] 2024-02-22 08:18:50 Not Available Jody Deible [facility] TELEMEDICINE Jody Deible [facility]2025-01-17 08:18:50 [facility] 08:18:50 [facility] EWHWTFDMOBYV2897-43-00 08:18:50 [facility]ible [facility] BOKYQQDPUWLQ2767-23-89 08:18:50 Jody Deible DNPCare[facility] DJFJJCYTMFJP5833-68-21 08:09:04 Am unable prescribe bactrim as prophylaxis, for having one kidney with no diagnosis of recurrent UTI. Will refer to nephrology for expert management on this 1. Congenital single kidney - Referral Nephrology [facility]2025-01-14 16:32:22 MyChart message was sent, no record of medication on file. LIEL Montes RNHolmes [facility] HospitalLhvzcl1109-52-21 16:00:49 Patient is requesting a prescription for Bactrim LIEL TayHolmes County [facility] HospitalWiekev7218-93-97 10:37:11 Call placed to pharmacy to discuss medication being converted to liquid form. Spoke to Rubia verbal order give for liquid form of the following medications. Disp Refills Start End ANAND apixaban (ELIQUIS) 2.5 mg tablet 180 tablet 2 02/18/2024 -- -- Sig: Take 1 tablet by mouth in the morning and 1 tablet in the evening. Indications: history of deep vein thrombosis Sent to pharmacy as: apixaban 2.5 mg tablet (Eliquis) Class: eRX Notes to Pharmacy: testing Route: Oral Order: [id number] Date/Time Signed: 02/18/2024 19:31 E-Prescribing Status: Receipt confirmed by pharmacy (02/18/2024 7:31 PM ABSORBER OPERATOR) Disp Refills Start End ANAND losartan 25 mg tablet 90 tablet 0 02/18/2024 -- -- Sig: Take 0.5 tablets by mouth in the morning. Liquid form Sent to pharmacy as: losartan 25 mg tablet (COZAAR) Class: eRX Route: Oral Order: [id number] Date/Time Signed: 02/18/2024 19:31 E-Prescribing Status: Receipt confirmed by pharmacy (02/18/2024 7:31 PM ABSORBER OPERATOR) [facility] Keegan Montes RNHolmes [facility] HospitalOnrtvx1498-55-25 08:16:08 Please can you help with this? [facility]2025-01-13 16:28:14 Images from the original note were not included. Requested Renewals losartan 25 mg tablet Sig: Take 0.5 tablets by mouth in the morning. Liquid form Disp: 90 tablet Refills: 0 Start: 02/18/2024 Class: eRX Non-formulary For: Essential hypertension Last ordered: 2 months ago (12/04/2023) by Lexi Borrero MD Cardiovascular: Angiotensin Receptor Blockers Qkfafm2402/18/2024 03:01 PM Protocol Details Valid encounter within last 12 months K in normal range and within 360 days Cr in normal range and within 360 days apixaban (ELIQUIS) 2.5 mg tablet Sig: Take 1 tablet by mouth in the morning and 1 tablet in the evening. Indications: history of deep vein thrombosis Disp: 180 tablet Refills: 2 Start: 02/18/2024 Class: eRX Non-formulary For: Chronic deep vein thrombosis (DVT) of other vein of lower extremity, unspecified laterality To pharmacy: testing Last ordered: 2 months ago (12/10/2023) by Lexi Borrero MD Anti-coagulants Yiqoot5302/18/2024 03:01 PM Protocol Details PLT in normal range and within 360 days Valid encounter within last 12 months Cr in normal range and within 360 days RBC in normal range and within 360 days HCT in normal range and within 360 days HGB in normal range and within 360 days To be filled at: [address] [facility] 01-08-2024 NOV 04-08-2024 [facility]n Lopez [facility] CenterCeccoi9081-37-43 14:57:32 Gerard Eddy is a 28 year old female Pt called requesting a refill (Bactrim oral suspension, losartan, Eliquis) . Please advise. [address] [facility]2024-12-09 08:15:02 Images from the original note were not included. [place] 156084-12-04 10:41:07 PA has been placed with OV notes attached. LIEL Montes RNHolmes County [facility] Pomerene Memorial HospitalDvmazq5737-57-55 11:33:45 Images from the original note were not included. LIEL CutlerHolmes County [facility] HospitalLhyxko2628-96-07 12:52:38Not AvailableStephanie Deible DNPCareBridge [id number] 12:52:38 Jody Deible DNPC[facility] CNBGHCWGTPYN2688-42-90 12:52:38 Jody Deible DNPCare[facility] WPYJMXZJZCAJ0664-49-27 12:52:38 Jody Deible [facility]PC[facility] GVYEHUTQWGWW4800-65-46 12:52:38 Jody Deible DNPCare[facility] XSWQJLGWWJOL8840-66-17 12:52:38 Jody Deible DNPCare[facility] [id number] 09:39:44 Approval noted. Left detailed message on pharmacy VM. LIEL Montes RNHolmes [facility] HospitalQhbavr6243-03-48 15:09:49 Images from the original note were not included. LIEL JimenezHolmes County Joel [facility] Memorial HospitalAnzjaj0492-47-88 10:56:11 Call placed to pt insurance to initiate plan limitations exclusions PA per pharmacy request. PA reference number is [id number], Rep. [facility] office notes will need to be faxed in order to approve a larger quantity of testing strips. Fax number is [phone]. Turn around time is 24 hours. Notes printed and faxed. IAM [facility] HospitalMdqicy2358-07-12 08:03:50 Images from the original note were not included. [facility] Claudia JimenezHolmes County Joel [facility] HospitalCgqwch7074-87-82 08:01:28 Images from the original note were not included. [place] 38995-11-04 02:55:28 1. Chronic deep vein thrombosis (DVT) of other vein of lower extremity, unspecified laterality - apixaban (ELIQUIS) 2.5 mg tablet; Take 1 tablet by mouth in the morning and 1 tablet in the evening. Indications: history of deep vein thrombosis Dispense: 180 tablet; Refill: 2 Sent with comment to pharmacy to adjust to solution dosing [place] 38995-10-31 09:39:37 Call placed to [facility] who states medication was dispensed by specialty pharmacy, reports can call Rx in for suspension. Per , Dianequis to be called in as follows: Eliquis, 2.5mg BID, for 30 days with 2 refill for liquid suspension, message was routed to provider for input. Keegan Montes RNHolmes County Joel Pomerene Memorial HospitalMyjubp4776-12-12 23:39:37 Is patient able to take po instead of the suspension , as I don't see oral eliquis except its compounded and what indication is it for. 1. Essential hypertension - losartan 25 mg tablet; Take 0.5 tablets by mouth in the morning. Liquid form Dispense: 90 tablet; Refill: 0 - metoprolol 10 mg/mL; Take 1 mL by mouth in the morning and 1 mL in the evening. Dispense: 100 mL; Refill: 0 [place] 200934-10-29 11:08:34 Metoprolol Tartrate 10mg/ml - 10 ML - BID Eliquis 5MG/ML - (0.5ML - BID) Above medications have not been filled by our office, routing message to provider for approval. Losartan meets protocol, refill sent. Disp Refills Start End ANAND losartan 25 mg tablet 90 tablet 0 10/15/2023 -- No Sig: Take 0.5 tablets by mouth in the morning. Liquid form Sent to pharmacy as: losartan 25 mg tablet (COZAAR) Class: eRX Route: Oral Order: [id number] Date/Time Signed: 10/15/2023 08:10 E-Prescribing Status: Receipt confirmed by pharmacy (10/15/2023 8:10 AM CDT) 10/09/2023 CREATININE 0.50 - 1.04 mg/dL 0.51 K 3.5 - 5.0 mmol/L 4.2 [facility] HospitalBqnhxk1599-88-40 11:03:00 Dx code R32 - Urinary incontinence added to form and faxed. Keegan Montes RNHolmes County [facility] Pomerene [facility] HospitalCgvztr5494-01-48 10:11:17 Images from the original note were not included. Claudia JimenezHolmes County Joel [facility] Memorial HospitalJyhqhm4101-43-94 09:46:11 Orders signes and faxed, confirmation received Dora Desir MA 11/28/2023 9:47 AM Dora Desir MAHolmes County Joel [facility] HospitalYnthgk7985-30-25 13:19:18 Forms placed in providers folder for review. WILLIAM RaiMB - Fiyrng5837-26-22 11:06:11 Images from the original note were not included. Forms placed in nurse folder. Apple CutlerHolmes County Joel [facility] Memorial HospitalDtkyoy8934-06-74 09:24:05 Conva Shawanda - Straight Tail Closure - [id number] Skin Barrier Paste - Safe n Simple - [id number] Skin Barrier Film Safe n Simple - Lot - [id number] Brava - Elastic Barrier Strips - Ref - [id number] [employer]Life One-Piece System Colostomy Pouch, Drainable, Trim To Fit - Reference number - [id number] [facility] HospitalLzqpzg1871-92-45 08:42:48 Call placed to [employer], they informed me they have received order but are needing specific reference numbers for ostomy supplies she will be requiring. For adult briefs was informed several samples were sent to pts home and pt has yet to respond to determine which ones she would like to use as she stated "I forgot and have not checked my mail". Molly with [employer] states they have a reference number for Ostomy supplies but will need to speak to Kimberli to verify what we are missing from out order as reference number is on there. Molly - Ext: [phone] T [facility] HospitalYeturq2976-74-56 16:10:21 Patient is requesting a call from the clinic in regards to medical supplies Shyam TayHolmes County Joel Pomerene Memorial HospitalZwcpee3324-04-19 09:05:28 Aditya from [facility] pharmacy is needing clarification on medication Promethazine. They are needing the frequency, Per Nancy, SENIOR PRINCIPAL ARCHITECT: every six hours as needed. Marilyn Lopez [facility] CenterRxsfdr1074-48-47 08:56:01 Copied from [facility] #[id number]. Topic: Clinical - Medical Advice >> Nov 20, 2023 8:55 AM Patient Fourchette Sewer wrote: Angelica brar/ KEVIN states they need to know how many times daily the pt can take the rx? Please Advise. [facility] [address] [place] [id number] [facility] HospitalIfwxxw9472-61-08 08:53:31 Gerard Eddy is a 28 year old female Patient is needing a prescription Promethazine. Patient is sneezing and stuffy nose since Sunday evening 11-16-2023. Patient states that is the only medication that helps her with sneezing a stuffy nose. Patient has been added for 11-20-2023 with FIDEL Cruz, patient was informed an appointment will be needed. Marilyn Lopez [facility] CenterPgiscb6507-74-48 08:29:10 Gerard Eddy is a 28 year old female states she is sneezing, stuffy nose some drainage, but no cough. Pt is asking if promethazine could be prescribed , takes 5 mLs by mouth every 6-8 hours. Pt said if this specific med can't be called in , any med has to be liquid. [facility] [address] [facility] [address] [place] [id number] Justin MuseHolmes County Joel [facility] Memorial HospitalNzxcmc8410-05-75 09:11:49 2nd attempted, no answer, unable to LVM to [employer]. Marilyn Lopez MAHolmes County Joel [facility]omerene Memorial HospitalRgmqpg4158-32-12 15:46:53 Orders have been faxed on 10/30/2023 and 10/31/2023. Called placed to Karen - [employer], unavailable at this time, LM to return call. Ext for her is [phone]. Keegan Montes RNHolmes County Joel Pomerene Memorial HospitalIswtah0283-00-45 15:25:35 Gerard Eddy is a 28 year old female Karen with [employer] is calling in stating they need an updated order with all the supplies that she uses daily. Fx: [phone] Sultana KeaneHolmes County Joel Pomerene Memorial HospitalZqhwwa1420-56-57 16:09:56 Per pt orders were to be sent [employer]. Orders were already faxed. See encounter dated 10/31/2023. Keegan Montes RNHolmes County Joel Pomerene Memorial HospitalGelzya1562-16-56 13:47:28 Received order form that needs to be filled out from [facility]. Placed in clinical folder for review. Rhiannon ReynoldsHolmes County Joel [facility] Memorial HospitalKxxcpg6214-89-90 16:39:47 Orders printed and faxed as requested. Pt notified via Digiscend. [facility] HospitalBwouyg0913-66-32 14:58:44 Patient is requesting orders for Colostomy Supplies. The brand of the Colostomy Supplies are ActiveLife one piece system Colostomy pouch, drainable, [place]. [place] [id number]. Company name is [employer]. Fax number is [phone]. Phone number is [phone]. Patient needs supplies SHAY. Current supplies are falling apart. Shyam TayHolmes County Joel [facility]omerene Memorial HospitalWioxtc2454-90-38 15:44:34Not AvailableSereleuterio Walsh DNP, [facility]ITALareBridge MWLWRVPPYXFS5555-47-31 15:44:34 Luke Walsh DNP, [facility] HOSPITALareBridge [id number] 15:44:34 Luke Walsh DNP, [facility]ITAL[facility] MYAZDRLNBVTE2842-29-24 15:44:34 Luke Walsh DNP, [facility] [id number] 15:44:34 Luke Walsh DNP, [facility] [id number] 15:44:34 Luke Walsh DNP, [facility] [id number] 16:04:46 Noted. Keegan Montes RNHolmes County Joel Pomerene Memorial HospitalGmitad3808-62-17 11:20:30 Lesli states she is needing an order for colostomy bags, order has been placed and faxed to [facility]. [facility] HospitalOikyhd7635-73-59 11:03:18 Lesli with [facility] is requesting a call from the clinic in regards to the type of Ostomy supplies ordered. Shyam TayHolmes County Joel Pomerene Memorial HospitalBlhllm2087-63-07 09:35:58 Pt states needs orders for Ostomy supplies changed to 57mm and adult briefs sent to [facility]. Orders reprinted and faxed to [facility] - , number - [phone]. [facility] HospitalYtxsgc8410-32-70 14:59:22 Pt states [facility] [employer] sent her ostmy supplies / briefs but size is like a 2 piece and has to cut. Pt said it came from [employer] and would like to change to different supplier. Contact pt will explain more in detail. Call Pt is needing bigger size for her ostmy supplies. Christina Del CidHolmes County Joel Pomerene Memorial HospitalZrfdpg9379-92-02 13:50:04 Pt is active on [employer], message sent. Keegan Montes RNHolmes County Joel Pomerene Memorial HospitalLhwmld8283-74-58 12:36:29 Order has been faxed to both numbers provided by pt. Keegan Montes RNHolmes County [facility] Pomerene Memorial HospitalJxcfrw3623-54-53 11:52:23 Addended by: KEEGAN HOLLIDAY V on: 10/15/2023 11:52 AM Modules accepted: Orders Keegan Montes RNHolmes County [facility]ome[facility] Memorial HospitalIltswg3324-42-38 11:28:47 Addended by: LEXI JUÁREZ on: 10/15/2023 11:28 AM Modules accepted: Orders [place] [address]-09-09 11:28:29 1. Colostomy present - Ostomy Supplies Misc; Use as directed Dispense: 100 Each; Refill: 1 2. Thoracic spina bifida, unspecified hydrocephalus presence 3. Urinary incontinence, unspecified type - Diaper,Brief, Adult,Disposable Misc; Use as directed Dispense: 120 Each; Refill: 11 [place] [address]-09-09 08:10:34 Explained to patient ,am unable to manage the diazepam part of her meds during the visit for spasm and also per clinic policy. [place] [address]-09-06 10:23:58 Images from the original note were not included. Requested Renewals losartan 25 mg tablet Sig: Take 0.5 tablets by mouth in the morning. Liquid form Disp: Not specified Refills: Start: 10/12/2023 Class: eRX Non-formulary Last ordered: 11 months ago (11/16/2022) by [place] [facility] Unassigned Cardiovascular: Angiotensin Receptor Blockers Gouekd8610/12/2023 10:04 AM Protocol Details Valid encounter within last 12 months K in normal range and within 360 days Cr in normal range and within 360 days diazePAM 5 mg tablet Sig: Take 0.5 tablets by mouth as needed. Disp: Not specified Refills: Start: 10/12/2023 Class: eRX Non-formulary Last ordered: 2 years ago (06/07/2021) by [place] [facility] Unassigned Provider Review Required Csklss1310/12/2023 10:04 AM Protocol Details This refill cannot be delegated Valid encounter within last 12 months oxybutynin 10 mg 24 hr tablet Sig: Take 1 tablet by mouth in the morning. Disp: Not specified Refills: Start: 10/12/2023 Class: eRX Non-formulary Last ordered: 11 months ago (11/16/2022) by [place] [facility] Unassigned Urology: Overactive Bladder Antupa6810/12/2023 10:04 AM Protocol Details Overactive Bladder is on problem list Valid encounter within last 12 months loratadine 5 mg/5 mL solution Sig: Take 10 mL by mouth in the morning. Disp: Not specified Refills: Start: 10/12/2023 Class: eRX Non-formulary Last ordered: 11 months ago (11/16/2022) by [place] [facility] Unassigned Allergy Ddgouj3710/12/2023 10:04 AM Protocol Details Valid encounter within last 12 months dimenhyDRINATE (DRAMAMINE) 25 mg Chew Sig: Take 1 Dose by mouth as needed. Disp: Not specified Refills: Start: 10/12/2023 Class: eRX Non-formulary Last ordered: 11 months ago (11/16/2022) by [place] [facility] Unassigned Over the Counter: OTC Ykufoc3910/12/2023 10:04 AM Protocol Details Valid encounter within last 12 months To be filled at: [facility] [address] [place] [address] 10-09-2023 NOV 01-08-2024 Marilyn Lopez [facility] CenterHpbecn5320-97-23 10:02:12 Patient requesting a refill of: Patient asking for solution Medication: Bactrim Dose: 200mg/40mg Route: Quantity: Pharmacy: [facility] [address] [place] AT [address] Last appt.: 10/09/23 Next appt.: 01/09/24 Elenita Goodrich[place] [address]-09-06 09:59:17 Patient requesting a refill of: Medication: Ferrous Sulfate Dose: 325mg Route: Quantity: 90day supply Pharmacy: [address] Last appt.: 10/09/23 Next appt.: 01/08/24 [place] [address]-09-06 09:55:07 Gerard Eddy is a 28 year old female. Patient is calling stating that she is needing a refill on medication. Patient requesting a refill of: patient is requesting prescriptions to be sent in liquid form Medication: Metoprolol Dose: 200mg tablets Route: Quantity: 90day Pharmacy: [address] Last appt.: 10/09/2023 Next appt.: 01/08/24 [place] [address]-09-06 09:17:19 Call placed to pt to discuss iron supplements. Pt also requesting orders for: Adult briefs (5-6 a day) and colostomy supplies - [facility] Fax Number that orders need to be sent to - [phone] Phone - 12 inch drainable pouch - safe and simple ([id number]) [id number] - Clip 5" diameter wafer. Informed pt will route message for orders to provider, states she will try to contact [facility] to have them fax us a refill request. Keegan Montes RNHolmes County Joel Pomerene Memorial HospitalAznomz8477-18-92 09:00:08 One that has 65-130mg of iron Can be taken M/W/F [place] 185834-09-05 14:28:54 Spoke to patient, verified name and . Patient states insurance will not cover liquid form of Iron and asked if she can takes Iron gummies and the recommended MG, routed to provider to review,. Dora Desir MA 10/11/2023 2:31 PM Dora Desir MAHolmes County Joel Pomerene Memorial HospitalMdmpaz5333-96-30 14:14:49 Gerard Eddy is a 28 year old female calling in to discuss lab results Josep HollidayHolmes County Joel Pomerene Memorial HospitalObtvlq0993-16-08 08:04:08 Digiscend message has been sent. Keegan Montes RNHolmes County Joel [facility]omerene Memorial HospitalTnfqxa1211-62-05 22:41:00 1. Impaired glucose regulation - Blood-Glucose Meter (ONETOUCH ULTRA2 METER) Kit; Use as directed Dispense: 1 Each; Refill: 1 - blood sugar diagnostic (ONETOUCH ULTRA TEST) strip; Use as directed Dispense: 100 Strip; Refill: 1 - lancets (ONETOUCH DELICA PLUS LANCET) 33 gauge Misc; Use as directed Dispense: 100 Each; Refill: 1 [place] [address]-09-03 14:58:28 Patient wants to know if you can send OneTouch to the pharmacy instead. Marilyn Lopez MAHolmes County Joel Pomerene Memorial HospitalSwbpvo6670-17-10 14:50:08 Gerard Eddy is a 28 year old female Pt is calling in regards to Prior Authorization for Freestyle Moy and also needs a prescription for test strips per pharmacy, please advise and call Pt to assist [phone] (home) Elizabeth Fuller 10/09/2023 2:52 PM Elizabeth Beasley [facility] CenterreubenHolmes County Joel [facility] Memorial HospitalCqzjfo4280-16-12 13:43:53 Images from the original note were not included. Apple CutlerHolmes County Joel Pomerene Memorial HospitalWaviqd2797-42-31 13:15:00 Images from the original note were not included. Venipuncture collection performed by clean technique on the left anticubitus. Total of 1 attempts were made. Slight pressure and a bandage/dressing were applied to the site(s). The patient experienced no complications. The following specimens were processed according to instructions and sent to [facility] laboratories per lab order on 10/08/26: LT BLUE SST 1 RED LAV 2 PPT DK GREEN (LiHep) DK GREEN (SodH) OOSRIO DK BLUE (K2) DK BLUE (S) ACD Blood Culture NIPT/NTD [facility] HospitalUjzysx1647-77-03 15:22:36 Per does not have experience with spina bifida, but can still see pt. Pt was requesting to see a female Doctor, Pt states she would like to see provider soon as she is having issues w/"bottoming out", reports she will eat and 3-4 hours later she will sleep. Reports was reported to previous MD with no POC. Offered pt appt with tomorrow, pt declines reports does not have transportation, sooner appt offered with GAVIOTA Cruz who reports she wants to see MD not DNA SEQUENCING ASSOCIATE. Pt states she has "complicated medications" pt informed our office does not prescribe Benzodiazepines and she is currently taking Diazepam, pt verbalizes understanding. ER precautions discussed. Appt has been scheduled with provider for 10/09/2023. Keegan Montes RNHolmes County [facility]omerene Memorial HospitalLlufac9418-16-41 14:26:20 Gerard Eddy is a 28 year old female Pt is calling in regards to her condition "spina bifida" and asking if Dr. Wall has experience and will take her on as a Pt. Please advise, Pt is wheelchair bound and would like to know before coming this way for an appt. [phone] (home) Pt also mentions she has been bottoming out after eating and has issues with her left leg. Please note. Elizabeth Fuller 10/01/2023 2:32 PM Elizabeth FullerHolmes County Joel [facility]rene Memorial HospitalDxjuxo3147-23-45 14:17:29Not AvailableLuke Walsh DNP, [facility] ANVEEMRBQPXO8899-22-79 14:17:29 Luke Walsh DNP, [facility] STCQUNMLOIXY6669-85-02 14:17:29 Luke Walsh DNP, [facility] CTZMLLFYZGTS6629-75-03 14:17:29 Luke Walsh DNP, [facility] KDJOTPAGIFZJ9340-77-21 14:17:29 Luke Walsh DNP, [facility]are[facility] XMHPGXMOZHOF0638-01-73 14:17:29 Luke Walsh DNP, [facility] DRSFGOIXNYMM4903-06-69 09:46:37Not Available Luke Walsh DNP, [facility]2024-08-17 09:46:37 Luke Walsh DNP, [facility] HSAZTLKVHKTN2745-68-74 09:46:37 Luke Walsh DNP, [facility] DPTJBKVOBEJK8089-01-18 09:46:37 Luke Walsh DNP, [facility] PSEZMZZSYTYY3906-72-45 09:46:37 Luke Walsh DNP, [facility] NEVEBGCPKZVO6922-99-09 09:46:37 Luke Walsh DNP, [facility]2024-04-29 09:59:31 Offermatic message sent to pt with Dr. Aviles's response. Sultana Gamble [facility]2024-04-29 08:35:42 No need for follow up. PN-NEUROLOGY STAFFHolmes County Joel Pomerene Memorial HospitalRwpyif6576-17-22 07:59:58 Test negative, no need for follow-u [facility] HospitalPimizm1770-81-72 09:14:33 Dr. Aviles, please review pt results of US BLE and interpret and advise on if you would like pt to schedule f/u appt. [facility] HospitalVwyfzr1770-10-66 08:25:50 Gerard Eddy is a 27 year old female Patient calling in regards to ultra sound results and wants to know what the next step of care is in regards to results. I advised that a follow up may be needed or an appt. May be needed with neurology. However pt insisted to speak to someone first. Please call patient back to advise. Tamiko Galeanaformerly [facility]2024-04-12 15:01:27 Sent pt BreatheAmericahart message. Per Dr. Aviles, pain was not addressed during CORY. Per CORY, pt f/u appt is PRN. Sultana Gamble [facility]2024-04-11 18:48:34 Gerard Eddy is a 27 year old female Pt states provider stated they will speak about her pain level. Pt is unsure on next steps regarding appt. Please advise. Pt can be reached at [phone] (home) Lyubov Jacksonformerly [facility]2024-04-03 15:38:10 BLE venous ultrasound order active for [facility]. Notified pt via MassHousingt. Advised to schedule f/u appt after completed if she would like to discuss the results. Sultana Gamble [facility]2024-04-03 15:27:49 Gerard Eddy is a 27 year old female Patient is calling requesting to speak with clinic nurse or provider to request Vascular Ultrasound be sent to [facility] facility instead of Externally. Please contact when available Nilsa PerezHolmes County Joel [facility]omerene Memorial HospitalCzgrrm7799-87-06 16:48:16 Order faxed to [phone]. Sultana Gamble [facility]2024-03-11 08:45:16 Needing referral faxed to [facility] for Ultrasound duplex venous bilateral for DVT. Tommy PowellkaylaHolmes County Joel Pomerene Memorial HospitalLnlpws6106-87-80 16:14:59 Patient has been RS, thanks. RBER OPERATOR Anh SinghUNC Health NashVkqxbv2026-84-49 16:05:17 Copied from [facility] #[id number]. Topic: Appointment - Reschedule Appointment >> Apr 04, 2023 4:04 PM Randi Team wrote: Gerard Eddy is a 27 female Pt is wanting to r/s appt for her echo on april 26 for something in the morning after 9 Please advise RBER OPERATOR Tia ChambersHolmes County Joel [facility]omerene Memorial HospitalHavwtw1909-08-63 12:02:50 Patient notified that she does not need to hold any medications for the echo. RBER OPERATOR Eliza Juarez Critical access hospitalWzfkiq7841-96-97 08:14:21 Gerard Eddy is a 27 year old female Patient is calling requesting to speak with a nurse as she has an ECHO this afternoon and is asking if she is ok to take her diazePAM. Please advise. RBER OPERATOR Migdalia HoodHolmes County Joel [facility]rene Memorial HospitalZnhefs0033-25-42 10:29:55 Pt is now r/s. RBER OPERATOR You MclainHolmes County Joel Pomerene Memorial HospitalMgmgpw0834-23-47 09:56:36 Routing to correct clinic, Please assist with ECHO appointment please. RBER OPERATOR Magda ArroyoJennifer [place] 185834-01-29 16:59:41 Gerard Eddy is a 27 year old female Pt. Is calling to R/S her ECHO for 05/21/23 RBER OPERATOR Anne LopezHolmes County Joel Pomerene Memorial HospitalOspghb0950-45-05 15:15:05 DVT study is negative. No further need for anticoagulation. Please send a copy of test results to patient's primary care provider. Called patient and discussed results [facility] HospitalTfldwq9762-36-95 14:46:38 Gerard Eddy is a 27 year old female Pt calling about her test results and would like a call from provider. [phone] ([place]) Aimee HamlinHolmes County Joel Pomerene Memorial HospitalHwnksi0127-72-96 16:07:24 Routed to provider to request review Kassidy Valderrama RNHolmes County Joel Pomerene Memorial HospitalRvypyt1119-22-74 08:39:32 This patient is calling to ask about if the provider has reviewed the US results and what the next process is. Please contact patient with update. Fernanda CalvinHolmes County [facility]rene Memorial HospitalMbyksv9014-38-59 13:46:12 Routed to provider as FYI. Kassidy Valderarma RNHolmes County Joel Pomerene Memorial HospitalSrdvpo2417-33-37 17:57:08 Gerard Eddy is a 27 year old female Patient would like provider to know that it was a DVT blood clot. Patient states that if there are any questions, to call her. Jason LunaHolmes County Joel [facility]omerene Memorial HospitalRxbjfl5377-30-04 10:14:00Addended by: NNEKA RAMSAY on: 08/21/2022 09:52 AM Modules accepted: Orders Nneka Ramsay [facility]
--- NOTE | 2024-06-19 11:41 | ER ---
Nurse's Notes [facility] Name: Myron Eddy Age: 28 yrs Sex: Female : 1995 Arrival Date: 06/19/2024 Time: 10:28 Bed 19 Private MD: Diagnosis: Generalized anxiety disorder Presentation: 06/19 10:28 Chief complaint: EMS states: ANXIETY AT HOME 2/2 FAMILY ARGUMENT. Coronavirus screen: bp At this time, the client does not indicate any symptoms associated with coronavirus-19. Ebola Screen: No symptoms or risks identified at this time. Initial Sepsis Screen: Does the patient meet any 2 criteria? No. Patient's initial sepsis screen is negative. Does the patient have a suspected source of infection? No. Patient's initial sepsis screen is negative. Risk Assessment: Do you want to hurt yourself or someone else?. Onset of symptoms was June 19, 2024. Care prior to arrival: Medication(s) given: 2.5 MG VERSED IV initiated. 22 GA, in the left antecubital area. 10:28 Method Of Arrival: EMS: [facility] bp 10:28 Acuity: THOMAS 5 bp Triage Assessment: 10:29 General: Appears in no apparent distress. Behavior is cooperative, appropriate for age, bp anxious. Pain: Denies pain. EENT: No deficits noted. Neuro: Reports AT BASELINE. Cardiovascular: Rhythm is sinus rhythm. Respiratory: No deficits noted. GI: No signs and/or symptoms were reported involving the gastrointestinal system. : No signs and/or symptoms were reported regarding the genitourinary system. Derm: No deficits noted. Musculoskeletal: No deficits noted. Historical: - Allergies: 10:29 Latex; bp 10:29 VANCOMYCIN AND DERIVATIVES; bp - PMHx: 10:29 chiari malformation; colostomy; ENDOCARDITIS; Hydrocephalus; incontinent; one kidney; bp Osteopenia; paraplegic; scoliosis; Sepsis; spina bifida; SAT TUTOR shumt; - Immunization history:: Adult Immunizations up to date. - Infectious Disease History:: Denies. - Social history:: Smoking status: Patient denies any tobacco usage or history of. Screenin:30 [facility] ED Fall Risk Assessment (Adult) History of falling in the last 3 months, bp including since admission No falls in past 3 months (0 pts) Confusion or Disorientation No (0 pts) Intoxicated or Sedated No (0 pts) Impaired Gait Yes (1 pt) Mobility Assist Device Used Yes (1 pt) Altered Elimination Yes (1 pt) Score/Fall Risk Level 0 - 2 = Low Risk Oriented to surroundings. Abuse screen: Denies threats or abuse. Denies injuries from another. Nutritional screening: No deficits noted. Tuberculosis screening: No symptoms or risk factors identified. Assessment: 10:30 General: SEE TRIAGE NOTE. bp 12:49 Reassessment: EMS AT B/S FOR TRANSPORT HOME. bp Vital Signs: 10:28 BP 146 / 88; Pulse 86; Resp 16; Temp 98; Pulse Ox 99% ; bp 11:32 Pulse 73; Resp 15; Temp 98; Pulse Ox 98% ; bp ED Course: 10:28 Patient arrived in ED. bp 10:29 Triage completed. bp 10:29 Arm band placed on. bp 10:30 Patient has correct armband on for positive identification. bp 10:30 Maintain EMS IV. Dressing intact. Good blood return noted. Site clean \T\ dry. Gauge \T\ bp site: 22 LAC. Flushed with 10 mL NS. 10:31 Donavan Hui MD is Attending Physician. jj9 10:32 Jose Sy, RN is Primary Nurse. bp 11:32 Provided Education on: NA. bp 11:32 No provider procedures requiring assistance completed. IV discontinued, intact, bp bleeding controlled, No redness/swelling at site. Pressure dressing applied. Administered Medications: No medications were administered Medication: 10:30 VIS not applicable for this client. bp Outcome: 11:40 Discharge ordered by jj9 12:49 Discharged to home via ambulance, bp 12:49 Condition: stable 12:49 Discharge instructions given to patient, Instructed on discharge instructions, follow up and referral plans. Demonstrated understanding of instructions, follow-up care, 12:49 Patient left the ED. bp Signatures: Jose Sy, RN RN bp Donavan Hui MD MD [email or web address]
--- NOTE | 2024-06-19 11:41 | EDPHYS ---
Physician Documentation [facility] Name: Myron Eddy Age: 28 yrs Sex: Female : 1995 Arrival Date: 06/19/2024 Time: 10:28 Bed 19 Private MD: ED Physician Donavan Hui HPI: 06/19 11:43 This 28 yrs old Female presents to ER via EMS with complaints of Anxiety. jj9 11:38 28-year-old female with history of spina bifida comes emergency department after an jj9 episode of panic attack. Symptoms started after an argument with sister and brother in the house involving the police. The patient reports she was feeling fine before this incident. She received Versed by EMS and now feels much better. She denies any other problems. History of Chiari malformation, spina bifida, hydrocephalus, colostomy.. Historical: - Allergies: 10:29 Latex; bp 10:29 VANCOMYCIN AND DERIVATIVES; bp - PMHx: 10:29 chiari malformation; colostomy; ENDOCARDITIS; Hydrocephalus; incontinent; one kidney; bp Osteopenia; paraplegic; scoliosis; Sepsis; spina bifida; [employer] shumt; - Immunization history:: Adult Immunizations up to date. - Infectious Disease History:: Denies. - Social history:: Smoking status: Patient denies any tobacco usage or history of. ROS: 11:38 Constitutional: Negative for fever, chills, and weight loss, Eyes: Negative for injury, jj9 pain, redness, and discharge, ENT: Negative for injury, pain, and discharge, Neck: Negative for injury, pain, and swelling, Cardiovascular: Negative for chest pain, palpitations, and edema, Respiratory: Negative for shortness of breath, cough, wheezing, and pleuritic chest pain, Abdomen/GI: Negative for abdominal pain, nausea, vomiting, diarrhea, and constipation, Back: Negative for injury and pain, MS/Extremity: Negative for injury and deformity, Skin: Negative for injury, rash, and discoloration, Neuro: Negative for headache, weakness, numbness, tingling, and seizure, Psych: Negative for depression, anxiety, suicide ideation, homicidal ideation, and hallucinations, Allergy/Immunology: Negative for hives, rash, and allergies, Endocrine: Negative for neck swelling, polydipsia, polyuria, polyphagia, and marked weight changes, Exam: 11:38 Constitutional: This is a well developed, well nourished patient who is awake, alert, jj9 and in no acute distress. Head/Face: Normocephalic, atraumatic. Eyes: Pupils equal round and reactive to light, extra-ocular motions intact. Lids and lashes normal. Conjunctiva and sclera are non-icteric and not injected. Cornea within normal limits. Periorbital areas with no swelling, redness, or edema. ENT: Nares patent. No nasal discharge, no septal abnormalities noted. Tympanic membranes are normal and external auditory canals are clear. Oropharynx with no redness, swelling, or masses, exudates, or evidence of obstruction, uvula midline. Mucous membranes moist. Neck: Trachea midline, no thyromegaly or masses palpated, and no cervical lymphadenopathy. Supple, full range of motion without nuchal rigidity, or vertebral point tenderness. No Meningismus. Chest/axilla: Normal chest wall appearance and motion. Nontender with no deformity. No lesions are appreciated. Cardiovascular: Regular rate and rhythm with a normal S1 and S2. No gallops, murmurs, or rubs. Normal PMI, no JVD. No pulse deficits. Respiratory: Lungs have equal breath sounds bilaterally, clear to auscultation and percussion. No rales, rhonchi or wheezes noted. No increased work of breathing, no retractions or nasal flaring. Abdomen/GI: Soft, non-tender, with normal bowel sounds. No distension or tympany. No guarding or rebound. No evidence of tenderness throughout. Neuro: Awake and alert, GCS 15, oriented to person, place, time, and situation. Cranial nerves II-XII grossly intact. Motor strength 5/5 in all extremities. Sensory grossly intact. Cerebellar exam normal. Normal gait. Psych: Awake, alert, with orientation to person, place and time. Behavior, mood, and affect are within normal limits. Vital Signs: 10:28 BP 146 / 88; Pulse 86; Resp 16; Temp 98; Pulse Ox 99% ; bp 11:32 Pulse 73; Resp 15; Temp 98; Pulse Ox 98% ; bp MDM: 10:31 Medical Screening Exam initiated jj9 11:39 Differential diagnosis: acute psychotic break, Anxiety, panic attack, etc. Data jj9 reviewed: vital signs, nurses notes. ED course: The patient appears in no distress she is hemodynamically stable feels much better she received Versed by EMS and now feels back at baseline. Will discharge the patient home advised to continue home medications, follow-up PCP and return to emergency department worsening of symptoms or any other problems. She understands and agrees with the plan.. Administered Medications: No medications were administered Disposition Summary: 06/19/24 11:40 Discharge Ordered Notes: Location: Home jj9 Problem: new jj9 Symptoms: are resolved jj9 Condition: Stable jj9 Diagnosis - Generalized anxiety disorder jj9 Followup: j9 - With: Private Physician - When: As needed - Reason: Continuance of care Discharge Instructions: - Discharge Summary Sheet jj9 - Panic Attack j9 Forms: - Medication Reconciliation Form jj9 - Antibiotic Education jj9 - Prescription Opioid Use j9 - Patient Portal Instructions j9 - Leadership Thank You Letter jj9 Signatures: Jose Sy RN RN Donavan Hui MD MD j9 Corrections: (The following items were deleted from the chart) 11:43 11:38 28-year-old female with history of spina bifida comes emergency department after j an episode of panic attack. Symptoms started after an argument with sister and brother in the house involving the police. The patient reports she was feeling fine before this incident. She received Versed by EMS and now feels much better. She denies any other problems.. jj9
[2024-06-19 13:08] VITALS: TEMP 98; O2SAT 98
== END 2024-06-19 12:49 | disposition home or self-care (01) ==
LOC: ER 10:30
DX: F41.1 Generalized anxiety disorder (principal); Z98.2 Presence of cerebrospinal fluid drainage device
CPT/HCPCS: 99283